=== PATIENT | female | born 1950 | race Caucasian/White ===

== ENCOUNTER 2017-03-12 06:30 | Day surgery (SDC) | payer OTHER ==
[2017-03-11 13:44] VITALS: BMI 28.8
[2017-03-12] MEDS ORDERED: PROPOFOL 20 ML ONE ×4 (07:31→07:50)
[2017-03-12] MEDS ORDERED: MIDAZOLAM HCL 2 MG/2 ML SINGLE DOSE VIAL ONE ×2 (07:41)
[2017-03-12] MEDS ORDERED: ROPIVACAINE HCL 0.5% 30ML VIAL ONE (07:42)
[2017-03-12] MEDS ORDERED: SCOPOLAMINE HYDROBROMIDE 1 PATCH PATCH.TD72 ONE (07:49)
[2017-03-12] MEDS ORDERED: ceFAZolin SODIUM 1 GM VIAL IVPB ONE (08:40)
[2017-03-12] MEDS ORDERED: ePHEDrine SULFATE 50 MG/1 ML AMPULE ONE (08:50)
[2017-03-12] MEDS ORDERED: ceFAZolin SODIUM 1 GM VIAL ONE (09:01)
[2017-03-12] MEDS ORDERED: DEXAMETHASONE SOD PHOSPHATE 4 MG/1 ML VIAL ONE ×2 (09:01)
--- NOTE | 2017-03-12 09:27 | OP ---
Operative Note - Note: Operative Date: 03/12/17 Pre-Operative Diagnosis: left shoulder subacromial impingement, adhesive capsulitis Operation: left shoulder arthroscopy, subacromial decompression, manipulation under anesthesia Post-Operative Diagnosis: Same as Pre-op Surgeon: Mesfin Galarza Cloak Room Attendant: Shiv Smith Anesthesiologist/FLOOR HAND: Yesika Santana Anesthesia: General, Local Specimens Removed: shavings Estimated Blood Loss (mls): 25 Drains, Volume Out (mls): 0 Blood Volume Replaced (mls): 0 Fluid Volume Replaced (mls): 700 Operative Report Dictated: Yes
--- NOTE | 2017-03-12 09:31 | HP ---
Satellite H - Chief Complaint Chief Complaint: left shoulder pain - Past Medical History Allergies/Adverse Reactions: Allergies Allergy/AdvReac Type Severity Reaction Status Date / Time ciprofloxacin [From Cipro] Allergy "VIOLENTLY Verified 03/11/17 13:51 ILL" ciprofloxacin HCl Allergy "VIOLENTLY Verified 03/11/17 13:51 [From Cipro] ILL" Penicillins Allergy "VIOLENTLY Verified 03/11/17 13:51 ILL" - Current Medications Current Medications: Home Medications Medication Instructions Recorded Cholecalciferol (Vitamin D3) 2,000 unit PO DAILY 09/17/13 [Vitamin D3] Krill Oil/[place]-3/Dha/Epa [[place]-3 1 each PO DAILY 09/17/13 Krill Oil Softgel] Multivitamin [Multivitamins] 1 each PO DAILY 09/17/13 Cetirizine HCl [Zyrtec -] 10 mg PO DAILY 03/11/17 Estradiol/Norethindrone Acet 1 each TD WEEKLY 03/11/17 [Combipatch 0.05-0.14 mg Ptch] L.acidoph,Paracasei, B.lactis 1 each PO DAILY 03/11/17 [Probiotic] Hydrocodone/Acetaminophen [Barton 1 - 2 each PO Q6H #40 tablet MDD 8 03/12/17 5-325 Tablet] Satellite Physical Exam - Physical Examination Vital Signs: Vital Signs Period Temp Pulse Resp BP Sys/Barraza Pulse Ox Last 24 Hr 98.6 F 76 18 131/78 98 General Appearance: Well Nourished, Well Developed, Alert & Oriented x3 ENT: Clear Lung: Normal air movement Heart: Regular rate & rhythm Extremities: Other (left shoulder- + ttp, decr rom, + neer, + coronado, nvi) Neurological: Intact, Alert, Oriented Satellite Impression/Plan - Impression/Plan Impression: left shoulder impingement Operative Procedure: left shoulder arthroscopy with GHASSAN RUANO Date to be Performed: 03/12/17
--- NOTE | 2017-03-12 10:37 | OP ---
DATE OF OPERATION: 03/12/2017 PREOPERATIVE DIAGNOSES: Left shoulder subacromial impingement and adhesive capsulitis. POSTOPERATIVE DIAGNOSES: Left shoulder subacromial impingement and adhesive capsulitis. PROCEDURE: Left shoulder arthroscopy, subacromial decompression, and manipulation under anesthesia. SURGEON: Grace Cristina MD CONSTRUCTION DRILLER: NIKO Nicholson OFFSET ASSISTANT PRESS OPERATOR: Yesika Santana CRNA ANESTHESIA: Left interscalene block, LMA anesthesia. BLOOD LOSS: Minimal. BLOOD GIVEN: None. FLUID REPLACEMENT: 500 mL. DRAINS: None. COMPLICATIONS: None. SPECIMEN: Arthroscopic shavings. This patient is a 66-year-old female with a preoperative diagnosis of a severe recurrent left shoulder subacromial impingement and mild to moderate adhesive capsulitis. After understanding the potential risks, complications, alternatives, and benefits of surgery versus nonsurgical treatment, the patient elected to undergo this procedure. The patient was brought to the operating room. Peripheral IV placed. IV sedation given. A left interscalene block was performed. LMA anesthesia was induced. She was placed into the headline writer in the beach chair position with ample padding throughout. Her left upper extremity was prepped and draped in sterile fashion. The bony landmarks marked out with a bone-marking pen. Posterior portal established. Arthroscope was introduced into the joint and a diagnostic glenohumeral arthroscopy was performed. In the glenohumeral joint, the patient was seen to have a frayed labrum in particular where the biceps anchored into the labrum, but there was no glenohumeral arthritis and the undersurface of the rotator cuff looked pristine. An anterior portal was established and a probe was introduced. Although the labrum itself was fine, the patient had a large middle glenohumeral ligament. The frayed portion of the biceps anchor was debrided, but the labrum was extensively probed and there was no labral tear. Excess saline was removed from the joint. Our attention turned to the subacromial space. Lateral portal was established with a spinal needle under direct visualization. A Green cannula was introduced and patient had a lot of inflammatory bursitis. A bursectomy was performed with the straight shaver and the ArthroCare wand, revealing a very large subacromial spur. The spur was taken down with a 5.5-mm oval bur and all debris removed with the shaver. The top surface of the rotator cuff was directly visualized after extensive debridement and the bursectomy and was seen to be completely intact with no tear. The area was copiously irrigated and washed out, all debris removed. Excess saline removed. The arthroscopy portals were closed with 3-0 nylon sutures. The area was then washed and dried and covered with 3 Aquacel dressings and a sling was applied. The patient had no complications during the case. Total operative time was about 30 minutes. She was extubated and brought to the ambulatory recovery room in stable condition. GRACE CRISTINA M.D. [id number]
[2017-03-12 11:07] VITALS: TEMP 97.6
[2017-03-12] MEDS ORDERED: oxyCODONE HCL 5 MG TABLET PO PRN (11:09)
[2017-03-12] MEDS ORDERED: PROMETHAZINE HCL 25 MG/1 ML VIAL IVPUSH PRN (11:09)
[2017-03-12] MEDS ORDERED: ONDANSETRON 4 MG/2 ML VIAL IVPUSH PRN (11:09)
[2017-03-12] MEDS ORDERED: LACTATED RINGERS SOLUTION 1,000 ML IV SCH (11:15)
[2017-03-12 12:55] VITALS: BP 127/70; PULSE 70
--- NOTE | 2017-03-13 12:46 | PATH ---
Surgical Pathology Report Patient Name: ZA CONTRERAS [facility]. Rec. #: [id number] /Age/Gender: 1950 (Age: 66) / F Account: [id number] Location: [facility] Taken: 03/12/2017 Received: 03/12/2017 Reported: 03/13/2017 Physicians: Mikey Gonzalez M.D. Specimen(s) Received SHAVINGS LEFT SHOULDER Clinical History Impingement syndrome Final Diagnosis SOFT TISSUE, LEFT SHOULDER, ARTHROSCOPIC SHAVINGS: SYNOVIUM AND FIBROCARTILAGE WITH MYXOHYALINE DEGENERATION. FRAGMENTS OF UNREMARKABLE BONE AND SKELETAL MUSCLE. Electronically Signed Dm Zarate M.D. Gross Description Received in formalin, labeled "left shoulder shavings" is a 4.0 x 3.6 x 0.3 cm aggregate of painting-yellow soft tissue fragments. A telemarketing representative portion is submitted in one cassette. /03/12/201703/12/2017
== END 2017-03-12 12:54 | disposition home or self-care (01) ==
LOC: JASU-SURG 06:30
PROVIDERS: ATTEND Orthopaedic Surgery
PROC: 0RBK4ZZ Excision of Left Shoulder Joint, Percutaneous Endoscopic Approach (ICD-10-PCS; principal; 2017-03-12 08:00)
DX: M75.42 Impingement syndrome of left shoulder (principal); M75.02 Adhesive capsulitis of left shoulder
CPT/HCPCS: 88304-TC; 94760

== ENCOUNTER 2020-05-26 04:57 | Day surgery (SDC) | payer OTHER ==
[2020-05-25 12:41] VITALS: BMI 29.2
[2020-05-26] MEDS ORDERED: DEXAMETHASONE SOD PHOSPHATE/PF 10 MG/ML SDV ONE ×2 (07:39→08:10)
[2020-05-26] MEDS ORDERED: LIDOCAINE HCL/PF 1% SDV 5ML VIAL ONE (07:40)
--- NOTE | 2020-05-26 07:48 | HP ---
Admitting History and Physical - Admission Chief Complaint: Low back and b/L Buttock Pain History of Present Illness: Pt presents with low back pain and b/l Buttock pain with history of lumbar spinal fusion - Smoking History Smoking history: Never smoked Have you smoked in the past 12 months: No - Alcohol/Substance Use Hx Alcohol Use: Yes (SOCIALLY) Home Medications - Allergies Allergies/Adverse Reactions: Allergies Allergy/AdvReac Type Severity Reaction Status Date / Time ciprofloxacin [From Cipro] Allergy "VIOLENTLY Verified 05/26/20 07:21 ILL" ciprofloxacin HCl Allergy "VIOLENTLY Verified 05/26/20 07:21 [From Cipro] ILL" Penicillins Allergy "VIOLENTLY Verified 05/26/20 07:21 ILL" - Home Medications Home Medications: Ambulatory Orders Estradiol/Norethindrone Acet [Combipatch 0.05-0.14 mg Ptch] 1 each TD WEEKLY 03/11/17 Gabapentin 800 mg PO TID 05/25/20 Simvastatin 40 mg PO HS 05/25/20 Review of Systems - Review of Systems Constitutional: reports: No Symptoms Eyes: reports: No Symptoms HENT: reports: Gingival Bleeding Neck: reports: No Symptoms Cardiovascular: reports: No Symptoms Respiratory: reports: No Symptoms Gastrointestinal: reports: No Symptoms Genitourinary: reports: No Symptoms Breasts: reports: No Symptoms Reported Musculoskeletal: reports: Back Pain Neurological: reports: Other (Radiating parasthesias) Endocrine: reports: No Symptoms Hematology/Lymphatic: reports: No Symptoms Psychiatric: reports: No Symptoms Physical Examination Vital Signs: Vital Signs Temperature 98.0 F 05/26/20 07:20 Pulse Rate 71 05/26/20 07:20 Respiratory Rate 20 05/26/20 07:20 Blood Pressure 132/85 05/26/20 07:20 O2 Sat by Pulse Oximetry (%) 98 05/26/20 07:20 Imaging - Results Cat Scan: Image Reviewed Assessment/Plan The patients pain is likely secondary to lumbar radiculopathy in the setting of lumbar spinal fusion. 1. I will perform B/l L5 TFESI.
[2020-05-26] MEDS ORDERED: LIDOCAINE HCL 1% PRESERVATIVE FREE - 30ML VIAL IJ ONE ×2 (08:05)
[2020-05-26] MEDS ORDERED: DEXAMETHASONE SOD PHOSPHATE 10 MG/1 ML VIAL IVPUSH ONE (08:06)
[2020-05-26] MEDS ORDERED: IOHEXOL 180 MG/1 ML ML IJ ONE ×2 (08:07)
[2020-05-26 09:01] VITALS: BP 126/72; PULSE 61; TEMP 97.5
--- NOTE | 2020-05-30 22:05 | PROC ---
Procedure Note Procedure: Preprocedure Diagnosis: Lumbar Radiculopathy Post Procedure Diagnosis: same Anesthesia: MAC Procedure Performed: Right and Left L5 transforaminal Epidural Steroid Injections After the risks and benefits were explained, informed consent was obtained. The patient was then taken to the procedure room and positioned prone on the procedure table. Time out was performed. The region overlying the Right and Left L5 neural foramens were identified using fluoroscopy. The skin was prepped and draped in the usual sterile fashion. The skin and soft tissues were anesthetized using 1% lidocaine. The neural foramens were identified with the fluoroscopic beam directed in a right oblique direction. 2 22 gauge 3.5 inch spinal needles were then introduced into the appropriate neural foramens using intermittent fluoroscopic guidance using AP, oblique and lateral views as indicated. Needle placement was then confirmed with the injection of Omnipaque 240. Epidural flow was noted and the nerve root was outlined. No vascular uptake was noted. Next, a mixture 1.5 cc of dexamethasone and Normal saline followed by 0.5 cc of 1% lidocaine was then injected around the Right & Left L5 spinal nerves. The patient tolerated the procedure well and there were no complications. The patient was taken to the post procedure recovery area in good condition. Vital signs remained stable before, during, and after the procedure. The patient was given oral and written follow-up instructions. The patient was given a follow up appointment with me in the near future. Rommel Butts DO
== END 2020-05-26 11:00 | disposition home or self-care (01) ==
LOC: JASU-SURG 04:57
PROVIDERS: ATTEND Pain Medicine Pain Medicine
PROC: 3E0R33Z Introduction of Anti-inflammatory into Spinal Canal, Percutaneous Approach (ICD-10-PCS; 2020-05-26)
PROC: 3E0R3BZ Introduction of Anesthetic Agent into Spinal Canal, Percutaneous Approach (ICD-10-PCS; principal; 2020-05-26 08:00)
DX: M54.16 Radiculopathy, lumbar region (principal)
CPT/HCPCS: 76000-TC-FY; J1100

== ENCOUNTER 2020-07-07 05:09 | Day surgery (SDC) | payer OTHER ==
--- OUTSIDE RECORDS SUMMARY | 2020-07-06 08:24 | XMS ---
:1950 Author Organization [facility] Care Team Providers Name Role Phone Chumaceiro, Darrell Unavailable Unavailable Chumaceiro, Darrell Unavailable Unavailable Chumaceiro, Darrell Unavailable Unavailable Chumaceiro, Darrell Unavailable Unavailable Chumaceiro, Darrell Unavailable Unavailable Chumaceiro, Darrell Unavailable Unavailable Chumaceiro, Darrell Unavailable Unavailable Chumaceiro, Darrell Unavailable Unavailable Erosa, Rommel Unavailable Erosa, Rommel Unavailable Re-disclosure Warning The records that you are about to access may contain information from federally- assisted alcohol or drug abuse programs. If such information is present, then the following federally mandated warning applies: This information has been disclosed to you from records protected by federal confidentiality rules (42 CFR part 2). The federal rules prohibit you from making any further disclosure of this information unless further disclosure is expressly permitted by the written consent of the person to whom it pertains or as otherwise permitted by 42 CFR part 2. A general authorization for the release of medical or other information is NOT sufficient for this purpose. The Federal rules restrict any use of the information to criminally investigate or prosecute any alcohol or drug abuse patient.The records that you are about to access may contain highly sensitive health information, the redisclosure of which is protected by Article 27-F of the [facility] Public Health law. If you continue you may haveaccess to information: Regarding HIV / AIDS; Provided by facilities licensed or operated by the [facility] Office of Mental Health; or Provided by the [facility] Office for People With Developmental Disabilities. If such information is present, then the following [facility] mandated warning applies: This information has been disclosed to you from confidential records which are protected by state law. State law prohibits you from making any further disclosure of this information without the specific written consent of the person to whom it pertains, or as otherwise permitted by law. Any unauthorized further disclosure in violation of state law may result in a fine or fdc sentence or both. A general authorization for the release of medical or other information is NOT sufficient authorization for further disclosure. Allergies and Adverse Reactions Type Description Substance Reaction Status Data Source(s ) Drug allergy penicillin Penicillin G Active [facility] ([facility], ) Encounters Encounter Providers Location Date Indications Data Source(s ) Attender: Rommel 06/14/2020 [facility] [place] 12:00:00 AM EDT [facility], PC) Office Attender: Rommel Butts 06/14/2020 12:00:00 AM EDT [facility] ([facility], ) Office Attender: Rommel Butts 04/27/2020 12:00:00 AM EDT [facility] ([facility], ) Office Attender: Rommel Butts 04/27/2020 12:00:00 AM EDT [facility] ([facility], ) Office Attender: Darrell 04/17/2020 12:00:00 AM EDT [facility] Office Attender: Darrell 04/17/2020 12:00:00 AM EDT [facility], ) Office Attender: Darrell 04/17/2020 12:00:00 AM EDT [facility] ([facility], ) Office Immunizations Vaccine Date Status Description Data Source(s) New in 2011. IIV4 07/17/2018 12:00:00 completed ME [facility] ([facility]) New in 2011. IIV4 07/17/2018 12:00:00 completed ME [facility] ([facility]) New in 2011. IIV4 07/17/2018 12:00:00 completed ME D[facility] ([facility], ) Tdap 11/24/2017 12:00:00 completed [facility] ( [facility]) Tdap 11/24/2017 12:00:00 completed [facility] ( [facility]) Tdap 11/24/2017 12:00:00 completed [facility] ( [facility]) Medications Medication Brand Start Product Dose Route Administrative Pharmacy [facility] Indications Reaction Description Data Name Date Form Instructions Instructions Source(s) pregabalin LYRICA 10/05/ CAPSULE 30 complet LYRI CA [facility] (St 100 MG Oral :59196 2017 ed [facility] Capsule 8 12:00: Medical, [Lyrica] 00 AM PC) LYRICA:6070 EDT 18 pregabalin LYRICA 10/05/ CAPSULE 30 complet LYRI CA [facility] (St 100 MG Oral :12797 2017 ed [facility] Capsule 8 12:00: Medical, [Lyrica] 00 AM PC) LYRICA:6070 EDT 18 pregabalin LYRICA 10/05/ CAPSULE 30 complet LYRI CA [facility] (St 100 MG Oral :12328 2017 ed [facility] Capsule 8 12:00: Medical, [Lyrica] 00 AM PC) LYRICA:6070 EDT 18 Amoxicillin AUGMEN 12/04/ TABLET 20 complet AUGM ENTIN MED[facility] (St 875 MG / TIN:56 2017 ed [facility] Clavulanate 2508 12:00: Medica l, 125 MG Oral 00 AM PC) Tablet EST AUGMENTIN:5 26613 Amoxicillin AUGMEN 12/04/ TABLET 20 complet AUGM ENTIN MED[facility] (St 875 MG / TIN:56 2017 ed [facility] Clavulanate 2508 12:00: Medica l, 125 MG Oral 00 AM PC) Tablet EST AUGMENTIN:5 55470 Amoxicillin AUGMEN 12/04/ TABLET 20 complet AUGM ENTIN [facility] (St 875 MG / TIN:56 2017 ed [facility] Clavulanate 2508 12:00: Medica l, 125 MG Oral 00 AM PC) Tablet EST AUGMENTIN:5 39531 Naproxen NAPROX 02/26/ DELAYED 30 complet NAPROX EN [facility] (St 500 MG EN:311 2017 RELEASE ed [facility] Delayed 915 12:00: TABLET Medical, Release 00 AM PC) Oral Tablet EDT NAPROXEN:1914 COMBIPATCH: 02/26/ complet COMBIPAT CH [facility] (St 2016 ed [facility] 12:00: Medical, 00 AM PC) EDT COMBIPATCH: 02/26/ complet COMBIPAT CH [facility] (St 2016 ed [facility] 12:00: Medical, 00 AM PC) EDT COMBIPATCH: 02/26/ complet COMBIPAT CH [facility] (St 2016 ed [facility] 12:00: Medical, 00 AM PC) EDT Naproxen NAPROX 02/26/ DELAYED 30 complet NAPROX EN [facility] (St 500 MG EN:311 2016 RELEASE ed [facility] Delayed 915 12:00: TABLET Medical, Release 00 AM PC) Oral Tablet EDT NAPROXEN:1914 Naproxen NAPROX 02/26/ DELAYED 30 complet NAPROX EN [facility] (St 500 MG EN:311 2016 RELEASE ed [facility] Delayed 915 12:00: TABLET Medical, Release 00 AM PC) Oral Tablet EDT NAPROXEN:1914 120 ACTUAT FLONAS 08/09/ SPRAY 1 complet FLONAS E [facility] (St Fluticasone E:8963 2015 ed [facility] propionate 21 12:00: Medical , 0.05 00 AM PC) MG/ACTUAT EDT Nasal Inhaler FLONASE:896 321 120 ACTUAT FLONAS 08/09/ SPRAY 1 complet FLONAS E [facility] (St Fluticasone E:8963 2015 ed [facility] propionate 21 12:00: Medical , 0.05 00 AM PC) MG/ACTUAT EDT Nasal Inhaler FLONASE:896 321 120 ACTUAT FLONAS 08/09/ SPRAY 1 complet FLONAS E [facility] (St Fluticasone E:8963 2015 ed [facility] propionate 21 12:00: Medical , 0.05 00 AM PC) MG/ACTUAT EDT Nasal Inhaler FLONASE:896 321 Insurance Providers Payer name Policy type Policy ID Covered Covered republican's Policy P ami / Coverage republican ID relationship to Angel Inf ormation type angel [employer] [id number] HEALTHCARE (MEDICARE) EMPIRE [id number] [facility] [id number] AARP MEDICARE [id number] COMPLETE [employer] [id number] HEALTHCARE (MEDICARE) [employer] [id number] HEALTHCARE (MEDICARE) Problems, Conditions, and Diagnoses Code Display Name Description Problem Effective Data Type Dates Source(s) M47.896 Other spondylosis, OTHER SPONDYLOSIS, Problem 0 MED[facility] (St lumbar region LUMBAR REGION 12:00:00 AM [facility], ) M96.1 Postlaminectomy POSTLAMINECTOMY Problem 04/27/2020 MEDG EN (St syndrome, not SYNDROME, NOT 12:00:00 AM [facility] elsewhere classified ELSEWHERE CLASSIFIED EDT Medical, ) M54.16 Radiculopathy, RADICULOPATHY, Problem 04/27/2020 MED[facility] (St lumbar region LUMBAR REGION 12:00:00 AM [facility], ) M96.1 Postlaminectomy POSTLAMINECTOMY Problem 04/27/2020 MEDG EN (St syndrome, not SYNDROME, NOT 12:00:00 AM [facility] elsewhere classified ELSEWHERE CLASSIFIED EDT Medical, ) M54.16 Radiculopathy, RADICULOPATHY, Problem 04/27/2020 MED[facility] (St lumbar region LUMBAR REGION 12:00:00 AM [facility], ) E78.5 Hyperlipidemia, HYPERLIPIDEMIA, Problem 04/17/2020 MEDG EN (St unspecified UNSPECIFIED 12:00:00 AM [facility], ) Z20.828 Contact with and CONTACT WITH AND Problem 04/17/2020 ME DGEN (St (suspected) exposure (SUSPECTED) EXPOSURE 12:00 :00 AM [facility] to other viral TO OTHER VIRAL EDT Medica , ) communicable COMMUNICABLE diseases DISEASES E78.5 Hyperlipidemia, HYPERLIPIDEMIA, Problem 04/17/2020 MEDG EN (St unspecified UNSPECIFIED 12:00:00 AM [facility], ) Z20.828 Contact with and CONTACT WITH AND Problem 04/17/2020 ME DGEN (St (suspected) exposure (SUSPECTED) EXPOSURE 12:00 :00 AM [facility] to other viral TO OTHER VIRAL EDT Medica , ) communicable COMMUNICABLE diseases DISEASES E78.5 Hyperlipidemia, HYPERLIPIDEMIA, Problem 04/17/2020 MEDG EN (St unspecified UNSPECIFIED 12:00:00 AM [facility], ) Z20.828 Contact with and CONTACT WITH AND Problem 04/17/2020 ME DGEN (St (suspected) exposure (SUSPECTED) EXPOSURE 12:00 :00 AM [facility] to other viral TO OTHER VIRAL EDT Medica , ) communicable COMMUNICABLE diseases DISEASES R07.9 Chest pain, CHEST PAIN, Problem 09/30/2019 MEDGEN (St unspecified UNSPECIFIED 12:00:00 AM [facility], ) R07.9 Chest pain, CHEST PAIN, Problem 09/30/2019 MEDGEN (St unspecified UNSPECIFIED 12:00:00 AM [facility], ) R07.9 Chest pain, CHEST PAIN, Problem 09/30/2019 MEDGEN (St unspecified UNSPECIFIED 12:00:00 AM [facility], ) M54.5 Low back pain LOW BACK PAIN Problem 03/17/2019 MED[facility] ( St 12:00:00 AM [facility], ) R42 Dizziness and DIZZINESS AND Problem 03/17/2019 MEDGEN ( St giddiness GIDDINESS 12:00:00 AM [facility], ) M54.5 Low back pain LOW BACK PAIN Problem 03/17/2019 MED[facility] ( St 12:00:00 AM [facility], ) R42 Dizziness and DIZZINESS AND Problem 03/17/2019 MEDGEN ( St giddiness GIDDINESS 12:00:00 AM [facility], ) M54.5 Low back pain LOW BACK PAIN Problem 03/17/2019 MED[facility] ( St 12:00:00 AM [facility], ) R42 Dizziness and DIZZINESS AND Problem 03/17/2019 MEDGEN ( St giddiness GIDDINESS 12:00:00 AM [facility], ) G50.0 Trigeminal neuralgia TRIGEMINAL NEURALGIA Problem 07/17 MED[facility] (St 12:00:00 AM [facility], ) G50.0 Trigeminal neuralgia TRIGEMINAL NEURALGIA Problem 07/17 MED[facility] (St 12:00:00 AM [facility], ) G50.0 Trigeminal neuralgia TRIGEMINAL NEURALGIA Problem 07/17 MED[facility] (St 12:00:00 AM [facility] EDT Medical, ) Z00.00 Encounter for ENCOUNTER FOR Problem 03/02/2018 MEDGEN ( St general adult GENERAL ADULT 12:00:00 AM [facility] medical examination MEDICAL EXAMINATION EDT Medical, ) without abnormal WITHOUT ABNORMAL findings FINDINGS Z00.00 Encounter for ENCOUNTER FOR Problem 03/02/2018 MEDGEN ( St general adult GENERAL ADULT 12:00:00 AM [facility] examination MEDICAL EXAMINATION EDT Medical, ) without abnormal WITHOUT ABNORMAL findings FINDINGS Z00.00 Encounter for ENCOUNTER FOR Problem 03/02/2018 MEDGEN ( St general adult GENERAL ADULT 12:00:00 AM [facility] medical examination MEDICAL EXAMINATION EDT Medical, ) without abnormal WITHOUT ABNORMAL findings FINDINGS J01.00 Acute maxillary ACUTE MAXILLARY Problem 12/04/2017 MEDG EN (St sinusitis, SINUSITIS, 12:00:00 AM [facility] unspecified UNSPECIFIED EST Medical, ) J01.00 Acute maxillary ACUTE MAXILLARY Problem 12/04/2017 MEDG EN (St sinusitis, SINUSITIS, 12:00:00 AM [facility] unspecified UNSPECIFIED EST Medical, ) J01.00 Acute maxillary ACUTE MAXILLARY Problem 12/04/2017 MEDG EN (St sinusitis, SINUSITIS, 12:00:00 AM [facility] unspecified UNSPECIFIED EST Medical, ) Z23 Encounter for ENCOUNTER FOR Problem 11/24/2017 MEDGEN ( St immunization IMMUNIZATION 12:00:00 AM [facility] EST Medical, ) Z23 Encounter for ENCOUNTER FOR Problem 11/24/2017 MEDGEN ( St immunization IMMUNIZATION 12:00:00 AM [facility] EST Medical, ) Z23 Encounter for ENCOUNTER FOR Problem 11/24/2017 MEDGEN ( St immunization IMMUNIZATION 12:00:00 AM [facility] EST Medical, ) M25.512 Pain in left PAIN IN LEFT Problem 02/26/2017 MEDGEN (St shoulder SHOULDER 12:00:00 AM [facility] EDT Medical, ) Z01.818 Encounter for other ENCOUNTER FOR OTHER Problem 017 MEDGEN (St preprocedural PREPROCEDURAL 12:00:00 AM [facility] examination EXAMINATION EDT Medical, ) M25.512 Pain in left PAIN IN LEFT Problem 02/26/2017 MEDGEN (St shoulder SHOULDER 12:00:00 AM [facility] EDT Medical, ) Z01.818 Encounter for other ENCOUNTER FOR OTHER Problem 017 MED[facility] (St preprocedural PREPROCEDURAL 12:00:00 AM [facility] examination EXAMINATION EDT [facility], ) M25.512 Pain in left PAIN IN LEFT Problem 02/26/2017 MEDGEN (St shoulder SHOULDER 12:00:00 AM [facility] T [facility], ) Z01.818 Encounter for other ENCOUNTER FOR OTHER Problem 017 MED[facility] (St preprocedural PREPROCEDURAL 12:00:00 AM [facility] examination EXAMINATION T [facility], ) Surgeries/Procedures Procedure Description Date Indications Data Source(s) OFFICE OUTPATIENT VISIT 15 06/14/2020 Bunny MATTHEW ([facility] MINUTES 12:00:00 AM [facility], ) Documentation of current 04/27/2020 MED GEN ([facility] medications (procedure) 12:00:00 AM T [facility], ) Documentation of current 04/27/2020 MED GEN ([facility] medications (procedure) 12:00:00 AM T [facility], ) Documentation of current 04/27/2020 MED GEN ([facility] medications (procedure) 12:00:00 AM T [facility], ) OFFICE OUTPATIENT VISIT 15 04/27/2020 Bunny MATTHEW ([facility] MINUTES 12:00:00 AM [facility], ) Documentation of current 04/27/2020 MED GEN ([facility] medications (procedure) 12:00:00 AM T [facility], ) OFFICE OUTPATIENT VISIT 15 04/27/2020 Bunny MATTHEW ([facility] MINUTES 12:00:00 AM [facility], ) Documentation of current 04/17/2020 MED GEN ([facility] medications (procedure) 12:00:00 AM EDT [facility], ) Documentation of current 04/17/2020 MED GEN [facility]procedure) [facility]ation [facility] current 04/17/2020 MED GEN ([facility] medications (procedure) 12:00:00 AM T [facility], ) OFFICE OUTPATIENT VISIT 15 04/17/2020 Bunny MATTHEW ([facility] MINUTES 12:00:00 AM [facility], ) COLLECTION VENOUS BLOOD 04/17/2020 MEDG EN ([facility] VENIPUNCTURE 12:00:00 AM EDT Medical, ) Documentation of current 04/17/2020 MED GEN ([facility] medications (procedure) 12:00:00 AM EDT edical, ) Documentation of current 04/17/2020 MED [facility] ([facility]) [facility] Documentation of current 04/17/2020 MED GEN ([facility] (procedure) [facility]:00:[facility] OFFICE OUTPATIENT VISIT 15 04/17/2020 M EDGEN ([facility] MINUTES 12:00:00 AM EDT Medical, ) COLLECTION VENOUS BLOOD 04/17/2020 MEDG EN ([facility] VENIPUNCTURE 12:00:00 AM EDT Medical, ) Documentation of current 04/17/2020 MED GEN ([facility] (procedure) [facility]:00[facility] OFFICE OUTPATIENT VISIT 15 04/17/2020 Bunny EDGEN ([facility] MINUTES 12:00:00 AM EDT Medical, ) COLLECTION VENOUS BLOOD 04/17/2020 MEDG EN ([facility] VENIPUNCTURE 12:00:00 AM [facility], ) Documentation of current 03/22/2020 MED GEN ([facility] medications (procedure) 12:00:00 AM EDT edical, ) PHYSICIAN TELEPHONE 03/22/2020 [facility] ( [facility] EVALUATION 5-10 MIN 12:00:00 AM EDT Medic al, PC) Documentation of current 03/22/2020 MED GEN ([facility] medications (procedure) 12:00:00 AM EDT edical, ) PHYSICIAN TELEPHONE 03/22/2020 [facility] ( [facility] EVALUATION 5-10 MIN 12:00:00 AM EDT Medic al, PC) Documentation of current 03/22/2020 MED GEN ([facility] medications (procedure) 12:00:00 AM EDT edical, ) PHYSICIAN TELEPHONE 03/22/2020 [facility] ( [facility] EVALUATION 5-10 MIN 12:00:00 AM EDT Medic al, ) Documentation of current 09/30/2019 MED GEN ([facility] medications (procedure) 12:00:[address] [facility] charan, ) OFFICE OUTPATIENT VISIT 25 09/30/2019 M EDGEN ([facility] MINUTES 12:00:00 AM EST Medical, ) ECG ROUTINE ECG W/LEAST 12 09/30/2019 M EDGEN ([facility] LDS W/I&R 12:00:00 AM EST Medical, ) COLLECTION VENOUS BLOOD 09/30/2019 MEDG EN ([facility] VENIPUNCTURE 12:00:00 AM EST Medical, ) Documentation of current 09/30/2019 MED GEN ([facility]procedure) [facility]:00[facility] OFFICE OUTPATIENT VISIT 25 09/30/2019 Bunny EDGEN ([facility] MINUTES 12:00:00 AM EST Medical, ) ECG ROUTINE ECG W/LEAST 12 09/30/2019 Bunny EDGEN ([facility] LDS W/I&R 12:00:00 AM EST Medical, ) COLLECTION VENOUS BLOOD 09/30/2019 MEDG EN ([facility] VENIPUNCTURE 12:00:00 AM [facility], ) Documentation of current 09/30/2019 MED GEN ([facility] medications (procedure) [facility]:00:[facility] OFFICE OUTPATIENT VISIT 25 09/30/2019 Bunny EDGEN ([facility] MINUTES 12:00:00 AM [facility] Medical, ) ECG ROUTINE ECG W/LEAST 12 09/30/2019 Bunny EDGEN ([facility] LDS W/I&R 12:00:00 AM EST Medical, ) COLLECTION VENOUS BLOOD 09/30/2019 MEDG EN ([facility] VENIPUNCTURE 12:00:00 AM EST [facility], ) Documentation of current 05/07/2019 MED GEN ([facility] medications (procedure) 12:00:00 AM EDT edical, ) Documentation of current 05/07/2019 MED GEN ([facility] medications (procedure) 12:00:00 AM EDT edical, PC) Documentation of current 05/07/2019 MED GEN ([facility] medications (procedure) 12:00:00 AM EDT edical, ) OFFICE OUTPATIENT VISIT 15 05/07/2019 M EDGEN [facility] Documentation of current 05/07/2019 MED GEN ([facility] (procedure) [facility]:00[facility] Documentation of current 05/07/2019 MED GEN ([facility] medications (procedure) [facility]:00:[facility] Documentation of current 05/07/2019 MED GEN ([facility] medications (procedure) 12:00:00 AM EDT [facility], ) OFFICE OUTPATIENT VISIT 15 05/07/2019 Bunny MATTHEW ([facility] MINUTES 12:00:00 AM [facility], ) Documentation of current 05/07/2019 MED GEN ([facility] medications (procedure) 12:00:00 AM EDT [facility], ) Documentation of current 05/07/2019 MED GEN ([facility] medications (procedure) 12:00:00 AM EDT [facility], ) Documentation of current 05/07/2019 MED GEN ([facility] medications (procedure) 12:00:00 AM EDT [facility], ) OFFICE OUTPATIENT VISIT 15 05/07/2019 Bunny MATTHEW ([facility] MINUTES 12:00:00 AM [facility], ) Documentation of current 03/17/2019 MED GEN ([facility] medications (procedure) 12:00:00 AM EDT [facility], ) Documentation of current 03/17/2019 MED GEN ([facility] medications (procedure) 12:00:00 AM EDT [facility], ) OFFICE OUTPATIENT VISIT 25 03/17/2019 Bunny MATTHEW ([facility] MINUTES 12:00:00 AM [facility], ) ECG ROUTINE ECG W/LEAST 12 03/17/2019 Bunny MATTHEW ([facility] LDS W/I&R 12:00:00 AM [facility], ) COLLECTION VENOUS BLOOD 03/17/2019 MEDG EN ([facility] VENIPUNCTURE 12:00:00 AM [facility], ) Documentation of current 03/17/2019 MED GEN ([facility] medications (procedure) 12:00:00 AM EDT [facility], ) Documentation of current 03/17/2019 MED GEN ([facility] medications (procedure) 12:00:00 AM EDT [facility], ) OFFICE OUTPATIENT VISIT 25 03/17/2019 Bunny MATTHEW ([facility] MINUTES 12:00:00 AM [facility]) ECG ROUTINE ECG W/LEAST 12 03/17/2019 M EDGEN ([facility] LDS W/I&R 12:00:00 AM [facility]) COLLECTION VENOUS BLOOD 03/17/2019 MEDG EN ([facility] VENIPUNCTURE 12:00:00 AM [facility]) Documentation of current 03/17/2019 MED GEN ([facility] medications (procedure) 12:00:00 AM [facility]) Documentation of current 03/17/2019 MED GEN ([facility] medications (procedure) 12:00:00 AM [facility]) OFFICE OUTPATIENT VISIT 25 03/17/2019 Bunny ALFREDN ([facility] MINUTES 12:00:00 AM [facility]) ECG ROUTINE ECG W/LEAST 12 03/17/2019 Bunny SIMONN ([facility] LDS W/I&R 12:00:00 AM [facility]) COLLECTION VENOUS BLOOD 03/17/2019 MEDG EN ([facility] VENIPUNCTURE 12:00:00 AM [facility]) Documentation of current 07/17/2018 MED GEN ([facility] medications (procedure) 12:00:00 AM [facility]) Documentation of current 07/17/2018 MED GEN ([facility] medications (procedure) 12:00:00 AM [facility]) Documentation of current 07/17/2018 MED GEN ([facility] medications (procedure) 12:00:00 AM [facility]) Influenza virus vaccine, 07/17/2018 MED GEN ([facility] split virus, when 12:00:00 AM [facility]) administered to individuals 3 years of age and older, for intramuscular use (flulaval) Administration of 07/17/2018 [facility] ([facility] influenza virus vaccine 12:00:00 AM [facility]) OFFICE OUTPATIENT VISIT 25 07/17/2018 Bunny EDGEN ([facility] MINUTES 12:00:00 AM [facility]) COLLECTION VENOUS BLOOD 07/17/2018 MEDG EN ([facility] VENIPUNCTURE 12:00:00 AM [facility]) Documentation of current 07/17/2018 MED GEN ([facility]procedure) [facility] Documentation of current 07/17/2018 MED GEN ([facility] medications (procedure) 12:00:[facility] Documentation of current 07/17/2018 MED GEN ([facility] medications (procedure) 12:00:00 AM T [facility], ) Influenza virus vaccine, 07/17/2018 MED GEN ([facility] split virus, when 12:00:00 AM [facility] , ) administered to individuals 3 years of age and older, for intramuscular use (flulaval) Administration of 07/17/2018 [facility] ([facility] influenza virus vaccine 12:00:00 AM EDT [facility], ) OFFICE OUTPATIENT VISIT 25 07/17/2018 Bunny EDGEN ([facility] MINUTES 12:00:00 AM [facility], ) COLLECTION VENOUS BLOOD 07/17/2018 MEDG EN ([facility] VENIPUNCTURE 12:00:00 AM [facility], ) Documentation of current 07/17/2018 MED GEN ([facility] medications (procedure) [facility]:00:[facility] Documentation of current 07/17/2018 MED GEN ([facility] medications (procedure) 12:00:00 AM T [facility], ) Documentation of current 07/17/2018 MED GEN ([facility] medications (procedure) 12:00:00 AM T [facility], ) Influenza virus vaccine, 07/17/2018 MED GEN ([facility] split virus, when 12:00:00 AM [facility] , ) administered to individuals 3 years of age and older, for intramuscular use (flulaval) Administration of 07/17/2018 [facility] ([facility] influenza virus vaccine 12:00:00 AM T [facility], ) OFFICE OUTPATIENT VISIT 25 07/17/2018 Bunny EDGEN ([facility] MINUTES 12:00:00 AM [facility], ) COLLECTION VENOUS BLOOD 07/17/2018 MEDG EN ([facility] VENIPUNCTURE 12:00:00 AM [facility], ) Documentation of current 03/02/2018 MED GEN ([facility] medications (procedure) 12:00:00 AM T [facility], ) Documentation of current 03/02/2018 MED GEN ([facility] medications (procedure) 12:00:00 AM EDT edical, ) OFFICE OUTPATIENT VISIT 15 03/02/2018 Bunny ALFREDN ([facility] MINUTES 12:00:00 AM EDT Medical, ) COLLECTION VENOUS BLOOD 03/02/2018 MEDG EN ([facility] VENIPUNCTURE 12:00:00 AM EDT Medical, ) Documentation of current 03/02/2018 MED GEN ([facility] medications (procedure) 12:00:00 AM EDT edical, ) Documentation of current 03/02/2018 MED GEN ([facility] medications (procedure) 12:00:00 AM EDT edical, ) OFFICE OUTPATIENT VISIT 15 03/02/2018 Bunny TIFF ([facility] MINUTES 12:00:00 AM ED Medical, ) COLLECTION VENOUS BLOOD 03/02/2018 MEDG EN ([facility] VENIPUNCTURE 12:00:00 AM ED Medical, ) Documentation of current 03/02/2018 MED GEN ([facility] medications (procedure) 12:00:00 AM EDT edical, ) Documentation of current 03/02/2018 MED GEN ([facility] medications (procedure) 12:00:00 AM EDT edical, ) OFFICE OUTPATIENT VISIT 15 03/02/2018 Bunny ALFREDN ([facility] MINUTES 12:00:00 AM ED Medical, ) COLLECTION VENOUS BLOOD 03/02/2018 MEDG EN ([facility]ation of current 12/04/2017 MED GEN ([facility] medications (procedure) 12:00:00 AM EST edical, ) OFFICE OUTPATIENT VISIT 15 12/04/2017 Bunny ALFREDN ([facility] MINUTES 12:00:00 AM [facility] Medical, ) Documentation of current 12/04/2017 MED GEN ([facility] medications (procedure) 12:00:00 AM EST edical, ) OFFICE OUTPATIENT VISIT 15 12/04/2017 Bunny TIFF ([facility] MINUTES 12:00:00 AM EST Medical, ) Documentation of current 12/04/2017 MED GEN ([facility] medications (procedure) 12:00:00 AM EST edical, ) OFFICE OUTPATIENT VISIT 15 12/04/2017 Bunny MATTHEW ([facility] MINUTES 12:00:00 AM [facility], ) Documentation of current 11/24/2017 MED GEN ([facility] medications (procedure) 12:00:00 AM EST [facility], ) Documentation of current 11/24/2017 MED GEN ([facility] medications (procedure) 12:00:00 AM EST [facility], ) OFFICE OUTPATIENT VISIT 15 11/24/2017 Bunny MATTHEW ([facility] MINUTES 12:00:00 AM [facility], ) TDAP VACCINE 7/> YR IM 11/24/2017 MEDGE N ([facility] 12:00:00 AM [facility], ) IMADM PRQ ID SUBQ/IM NJXS 11/24/2017 ME DGEN ([facility] 1 VACCINE 12:00:00 AM [facility], ) Documentation of current 11/24/2017 MED GEN ([facility] medications (procedure) 12:00:00 AM EST [facility], ) Documentation of current 11/24/2017 MED GEN ([facility] medications (procedure) 12:00:00 AM EST [facility], ) OFFICE OUTPATIENT VISIT 15 11/24/2017 Bunny SIMONAdriana ([facility] MINUTES 12:00:00 AM [facility], ) TDAP VACCINE 7/> YR IM 11/24/2017 MEDGE N ([facility] 12:00:00 AM [facility], ) IMADM PRQ ID SUBQ/IM NJXS 11/24/2017 ME DGEN ([facility] 1 VACCINE 12:00:00 AM [facility], ) Documentation of current 11/24/2017 MED GEN ([facility] medications (procedure) 12:00:00 AM EST [facility], ) Documentation of current 11/24/2017 MED GEN ([facility] medications (procedure) 12:00:00 AM EST [facility], ) OFFICE OUTPATIENT VISIT 15 11/24/2017 Bunny MATTHEW ([facility] MINUTES 12:00:00 AM [facility], ) TDAP VACCINE 7/> YR IM 11/24/2017 MEDGE N ([facility] 12:00:00 AM [facility], ) IMADM PRQ ID SUBQ/IM NJXS 11/24/2017 ME DGEN ([facility] 1 VACCINE 12:00:00 AM [facility] Medical, ) Documentation of current 02/26/2017 MED GEN ([facility] medications (procedure) 12:00:00 AM EDT edical, ) Documentation of current 02/26/2017 MED GEN ([facility] medications (procedure) 12:00:00 AM EDT edical, ) Documentation of current 02/26/2017 MED GEN ([facility] medications (procedure) 12:00:00 AM EDT edical, ) Documentation of current 02/26/2017 MED GEN ([facility] medications (procedure) 12:00:00 AM EDT edical, ) Documentation of current 02/26/2017 MED GEN ([facility] medications (procedure) 12:00:00 AM EDT edical, ) Documentation of current 02/26/2017 MED GEN ([facility] medications (procedure) 12:00:00 AM EDT edical, ) OFFICE OUTPATIENT VISIT 02/26/2017 Bunny MATTHEW ([facility] MINUTES 12:00:00 AM [facility] Medical, ) ECG ROUTINE ECG W/LEAST 12 02/26/2017 Bunny MATTHEW ([facility] LDS W/I&R 12:00:00 AM [facility] Medical, ) Documentation of current 02/26/2017 MED GEN ([facility] medications (procedure) 12:00:00 AM EDT edical, ) Documentation of current 02/26/2017 MED GEN ([facility] medications (procedure) 12:00:00 AM EDT edical, ) Documentation of current 02/26/2017 MED GEN ([facility] medications (procedure) 12:00:00 AM EDT edical, ) Documentation of current 02/26/2017 MED GEN ([facility] medications (procedure) 12:00:00 AM EDT edical, PC) Documentation of current 02/26/2017 MED GEN ([facility] medications (procedure) 12:00:00 AM EDT edical, ) Documentation of current 02/26/2017 MED GEN ([facility] medications (procedure) 12:00:00 AM EDT edical, PC) OFFICE OUTPATIENT VISIT 25 02/26/2017 Bunny SIMONN ([facility] MINUTES 12:00:00 AM EDT Medical, ) ECG ROUTINE ECG W/LEAST 12 02/26/2017 Bunny EDGEN ([facility] LDS W/I&R 12:00:00 AM EDT Medical, ) Documentation of current 02/26/2017 MED GEN ([facility] medications (procedure) 12:00:00 AM EDT edical, ) Documentation of current 02/26/2017 MED GEN ([facility] medications (procedure) 12:00:00 AM EDT edical, ) Documentation of current 02/26/2017 MED GEN ([facility] medications (procedure) 12:00:00 AM EDT edical, ) Documentation of current 02/26/2017 MED GEN ([facility] medications (procedure) 12:00:00 AM EDT edical, ) Documentation of current 02/26/2017 MED GEN ([facility] medications (procedure) 12:00:00 AM EDT edical, ) Documentation of current 02/26/2017 MED GEN ([facility] medications (procedure) 12:00:00 AM EDT edical, ) OFFICE OUTPATIENT VISIT 25 02/26/2017 Bunny MATTHEW ([facility] MINUTES 12:00:00 AM EDT Medical, ) ECG ROUTINE ECG W/LEAST 12 02/26/2017 Bunny SIMONN ([facility] LDS W/I&R 12:00:00 AM EDT Medical, ) Results ID Date Data Source [id number] 07/02/2020 11:10:00 AM EDT [facility] Name Value Range Interpretation Description Data Sup porting Code Source(s) Document(s ) SARS [facility] coronavirus 2 RNA This lab was ordered by [facility] and reported by [facility]. ID Date Data Source [id number] 06/25/2020 09:55:00 AM EDT [facility] Name Value Range Interpretation Description Data Sup porting Code Source(s) Document(s ) SARS [facility] coronavirus 2 RNA This lab was ordered by [facility] and reported by [facility]. ID Date Data Source [id number] 05/21/2020 10:30:00 AM EDT [facility] Name Value Range Interpretation Description Data Sup porting Code Source(s) Document(s ) SARS [facility] coronavirus 2 RNA This lab was ordered by [facility] and reported by [facility]. ID Date Data Source [id number] 04/17/2020 12:00:00 AM EDT [facility] ([facility]) Name Value Range Interpretation Code Description Data Armida rce(s) Supporting Document(s ) SARS-CoV- Negative Normal (applies to [facility] (St 2 non-numeric [facility] Antibody, results) Medical, PC) IgG ID Date Data Source [id number] 04/17/2020 12:00:00 AM EDT [facility] ([facility] Medical, ) Name Value Range Interpretation Code Description Data Armida rce(s) Supporting Document(s ) SARS-CoV- Negative Normal (applies to [facility] (St 2 non-numeric [facility] Antibody, results) Medical, ) IgM ID Date Data Source [id number] 04/17/2020 12:00:00 AM EDT [facility] ([facility], ) Name Value Range Interpretation Description Data Sup porting Code Source(s) Document(s ) Protein 6.3 g/dL Normal (applies [facility] (St [Mass/volume] in to non-numeric [facility] Serum or Plasma results) Medical, ) Bilirubin.total 0.3 Normal (applies [facility] ( St [Mass/volume] in mg/dL to non-numeric [facility] Serum or Plasma results) Medical, PC) Microalbumin 4.2 g/dL Normal (applies [facility] (St [Mass/time] in to non-numeric [facility] Urine collected for results) Medical, unspecified PC) duration Alkaline 82 IU/L Normal (applies [facility] (St phosphatase to non-numeric [facility] [Enzymatic results) Medical, activity/volume] in PC) Serum, Plasma or Blood Bilirubin.conjugate 0.08 Normal (applies MEDG EN (St d [Mass/volume] in mg/dL to non-numeric [facility] Serum or Plasma results) Medical, PC) Aspartate 21 IU/L Normal (applies [facility] (St aminotransferase to non-numeric [facility] [Enzymatic results) Medical, activity/volume] in PC) Serum or Plasma Alanine 17 IU/L Normal (applies [facility] (St aminotransferase to non-numeric [facility] [Enzymatic results) Medical, activity/volume] in PC) Serum or Plasma ID Date Data Source [id number] 04/17/2020 12:00:00 AM EDT [facility] ([facility], ) Name Value Range Interpretation Description Data Sup porting Code Source(s) Document(s ) Triglyceride 86 mg/dL Normal (applies [facility] (St [Mass/volume] in to non-numeric [facility] Serum or Plasma results) Medical, ) Cholesterol 146 Normal (applies [facility] (St [Mass/volume] in mg/dL to non-numeric [employer] Serum or Plasma results) Medical, PC) HDL Cholesterol 46 mg/dL Normal (applies [facility] ( St to non-numeric [facility] results) Medical, PC) VLDL Cholesterol 17 mg/dL Normal (applies [facility] (St Ja to non-numeric [facility] results) Medical, PC) LDL Cholesterol 83 mg/dL Normal (applies [facility] ( St Calc to non-numeric [facility] results) Medical, ) ID Date Data Source [id number] 04/17/2020 12:00:00 AM ED[facility], ) Name Value Range Interpretation Code Description Data Armida rce(s) Supporting Document(s ) SARS-CoV- Negative Normal (applies to [facility] (St 2 non-numeric [facility] Antibody, results) Medical, ) IgG ID Date Data Source [id number] 04/17/2020 12:00:00 AM EDT [facility] ([facility], ) Name Value Range Interpretation Code Description Data Armida rce(s) Supporting Document(s ) SARS-CoV- Negative Normal (applies to [facility] (St 2 non-numeric [facility] Antibody, results) Medical, ) IgM ID Date Data Source [id number] 04/17/2020 12:00:00 AM EDT [facility] ([facility], ) Name Value Range Interpretation Description Data Sup porting Code Source(s) Document(s ) Protein 6.3 g/dL Normal (applies [facility] (St [Mass/volume] in to non-numeric [facility] Serum or Plasma results) Medical, PC) Microalbumin 4.2 g/dL Normal (applies [facility] (St [Mass/time] in to non-numeric [facility] Urine collected for results) Medical, unspecified PC) duration Bilirubin.total 0.3 Normal (applies [facility] ( St [Mass/volume] in mg/dL to non-numeric [facility] Serum or Plasma results) Medical, ) Bilirubin.conjugate 0.08 Normal (applies MEDG EN (St d [Mass/volume] in mg/dL to non-numeric [facility] Serum or Plasma results) Medical, ) Alkaline 82 IU/L Normal (applies [facility] (St phosphatase to non-numeric [facility] [Enzymatic results) Medical, activity/volume] in ) Serum, Plasma or Blood Alanine 17 IU/L Normal (applies [facility] (St aminotransferase to non-numeric [facility] [Enzymatic results) Medical, activity/volume] in ) Serum or Plasma Aspartate 21 IU/L Normal (applies [facility] (St aminotransferase to non-numeric [facility] [Enzymatic results) Medical, activity/volume] in ) Serum or Plasma ID Date Data Source [id number] 04/17/2020 12:00:00 AM EDT [facility] ([facility], ) Name Value Range Interpretation Description Data Sup porting Code Source(s) Document(s ) Triglyceride 86 mg/dL Normal (applies [facility] (St [Mass/volume] in to non-numeric [facility] Serum or Plasma results) [facility], ) Cholesterol 146 Normal (applies [facility] (St [Mass/volume] in mg/dL to non-numeric [facility] Serum or Plasma results) [facility], ) HDL Cholesterol 46 mg/dL Normal (applies [facility] ( St to non-numeric [employer] results) [facility], ) VLDL Cholesterol 17 mg/dL Normal (applies [facility] (St Ja to non-numeric [facility] results) [facility], ) LDL Cholesterol 83 mg/dL Normal (applies [facility] ( St Calc to non-numeric [facility] results) [facility], ) ID Date Data Source [id number] 09/30/2019 12:00:00 AM EST [facility] ([facility], ) Name Value Range Interpretation Code Description Data Armida rce(s) Supporting Document(s ) TSH 2.110 Normal (applies to [facility] (St uIU/mL non-numeric results) [facility], ) ID Date Data Source [id number] 09/30/2019 12:00:00 AM EST [facility] ([facility], ) Name Value Range Interpretation Description Data Sup porting Code Source(s) Document(s ) Protein 7.0 g/dL Normal (applies [facility] (St [Mass/volume] in to non-numeric [facility] Serum or Plasma results) Medical, ) Microalbumin 4.4 g/dL Normal (applies [facility] (St [Mass/time] in to non-numeric [facility] Urine collected for results) [facility], unspecified PC) duration Bilirubin.total 0.3 Normal (applies [facility] ( St [Mass/volume] in mg/dL to non-numeric [facility] Serum or Plasma results) Medical, ) Bilirubin.conjugate 0.09 Normal (applies MEDG EN (St d [Mass/volume] in mg/dL to non-numeric [facility] Serum or Plasma results) Medical, ) Alkaline 80 IU/L Normal (applies [facility] (St phosphatase to non-numeric [facility] [Enzymatic results) Medical, activity/volume] in ) Serum, Plasma or Blood Aspartate 21 IU/L Normal (applies [facility] (St aminotransferase to non-numeric [facility] [Enzymatic results) Medical, activity/volume] in PC) Serum or Plasma Alanine 14 IU/L Normal (applies [facility] (St aminotransferase to non-numeric [facility] [Enzymatic results) Medical, activity/volume] in ) Serum or Plasma ID Date Data Source [id number] 09/30/2019 12:00:00 AM EST [facility] ([facility], ) Name Value Range Interpretation Description Data Sup porting Code Source(s) Document(s ) Cholesterol 172 Normal (applies [facility] (St [Mass/volume] in mg/dL to non-numeric [facility] Serum or Plasma results) Medical, ) Triglyceride 127 Normal (applies [facility]GEN (St [Mass/volume] in mg/dL to non-numeric [facility] Serum or Plasma results) Medical, ) HDL Cholesterol 50 mg/dL Normal (applies [facility]GEN ( St to non-numeric [facility] results) [facility], ) LDL Cholesterol 97 mg/dL Normal (applies [facility]GEN ( St Calc to non-numeric [facility] results) Medical, ) VLDL Cholesterol 25 mg/dL Normal (applies [facility] (St Ja to non-numeric [facility] results) Medical, ) ID Date Data Source [id number] 09/30/2019 12:00:00 AM EST [facility] ([facility], ) Name Value Range Interpretation Code Description Data Armida rce(s) Supporting Document(s ) TSH 2.110 Normal (applies to [facility]GEN (St uIU/mL non-numeric results) [facility] Ma dical, ) ID Date Data Source [id number] 09/30/2019 12:00:00 AM EST [facility] ([facility], ) Name Value Range Interpretation Description Data Sup porting Code Source(s) Document(s ) Protein 7.0 g/dL Normal (applies [facility] (St [Mass/volume] in to non-numeric [facility] Serum or Plasma results) Medical, PC) Bilirubin.total 0.3 Normal (applies [facility]GEN ( St [Mass/volume] in mg/dL to non-numeric [facility] Serum or Plasma results) Medical, ) Microalbumin 4.4 g/dL Normal (applies [facility] (St [Mass/time] in to non-numeric [facility] Urine collected for results) [facility], unspecified PC) duration Bilirubin.conjugate 0.09 Normal (applies MEDG EN (St d [Mass/volume] in mg/dL to non-numeric [facility] Serum or Plasma results) Medical, PC) Alkaline 80 IU/L Normal (applies [facility] (St phosphatase to non-numeric [facility] [Enzymatic results) Medical, activity/volume] in PC) Serum, Plasma or Blood Aspartate 21 IU/L Normal (applies [facility] (St aminotransferase to non-numeric [facility] [Enzymatic results) Medical, activity/volume] in PC) Serum or Plasma Alanine 14 IU/L Normal (applies [facility] (St aminotransferase to non-numeric [facility] [Enzymatic results) Medical, activity/volume] in PC) Serum or Plasma ID Date Data Source [id number] 09/30/2019 12:00:00 AM EST [facility] ([facility], ) Name Value Range Interpretation Description Data Sup porting Code Source(s) Document(s ) Cholesterol 172 Normal (applies [facility] (St [Mass/volume] in mg/dL to non-numeric [facility] Serum or Plasma results) Medical, PC) Triglyceride 127 Normal (applies [facility] (St [Mass/volume] in mg/dL to non-numeric [facility] Serum or Plasma results) Medical, PC) HDL Cholesterol 50 mg/dL Normal (applies [facility]GEN ( St to non-numeric [facility] results) Medical, PC) VLDL Cholesterol 25 mg/dL Normal (applies [facility] (St Ja to non-numeric [facility] results) Medical, PC) LDL Cholesterol 97 mg/dL Normal (applies [facility] ( St Calc to non-numeric [facility] results) Medical, PC) ID Date Data Source [id number] 09/30/2019 12:00:00 AM EST [facility] ([facility], ) Name Value Range Interpretation Code Description Data Armida rce(s) Supporting Document(s ) TSH 2.110 Normal (applies to [facility] (St uIU/mL non-numeric results) [facility] Ma dicsc, ) ID Date Data Source [id number] 09/30/2019 12:00:00 AM EST [facility] ([facility], ) Name Value Range Interpretation Description Data Sup porting Code Source(s) Document(s ) Protein 7.0 g/dL Normal (applies [facility] (St [Mass/volume] in to non-numeric [facility] Serum or Plasma results) Medical, PC) Microalbumin 4.4 g/dL Normal (applies [facility] (St [Mass/time] in to non-numeric [facility] Urine collected for results) Medical, unspecified PC) duration Bilirubin.total 0.3 Normal (applies [facility] ( St [Mass/volume] in mg/dL to non-numeric [facility] Serum or Plasma results) Medical, PC) Bilirubin.conjugate 0.09 Normal (applies MEDG EN (St d [Mass/volume] in mg/dL to non-numeric [facility] Serum or Plasma results) Medical, PC) Aspartate 21 IU/L Normal (applies [facility] (St aminotransferase to non-numeric [facility] [Enzymatic results) Medical, activity/volume] in PC) Serum or Plasma Alkaline 80 IU/L Normal (applies [facility] (St phosphatase to non-numeric [facility] [Enzymatic results) Medical, activity/volume] in PC) Serum, Plasma or Blood Alanine 14 IU/L Normal (applies [facility] (St aminotransferase to non-numeric [facility] [Enzymatic results) Medical, activity/volume] in PC) Serum or Plasma ID Date Data Source [id number] 09/30/2019 12:00:00 AM EST [facility] ([facility], ) Name Value Range Interpretation Description Data Sup porting Code Source(s) Document(s ) Cholesterol 172 Normal (applies [facility] (St [Mass/volume] in mg/dL to non-numeric [facility] Serum or Plasma results) Medical, ) Triglyceride 127 Normal (applies [facility] (St [Mass/volume] in mg/dL to non-numeric [employer] Serum or Plasma results) [facility], ) HDL Cholesterol 50 mg/dL Normal (applies [facility]GEN ( St to non-numeric [employer] results) [facility], ) VLDL Cholesterol 25 mg/dL Normal (applies [facility] (St Ja to non-numeric [facility] results) Medical, ) LDL Cholesterol 97 mg/dL Normal (applies [facility] ( St Calc to non-numeric [facility] results) [facility], ) ID Date Data Source [id number] 03/17/2019 12:00:00 AM EDT [facility], ) Name Value Range Interpretation Description Data Sup porting Code Source(s) Document(s ) Request Test not Normal (applies to [facility] (St Problem performed non-numeric [facility] . results) [facility], ) ID Date Data Source [id number] 03/17/2019 12:00:00 AM EDT [facility] ( [facility], ) Name Value Range Interpretation Description Data Sup porting Code Source(s) Document(s ) Vitamin D, 68.0 Normal (applies to [facility] (St 25-Hydroxy ng/mL non-numeric [facility] results) [facility], ) ID Date Data Source [id number] 03/17/2019 12:00:00 AM EDT [facility] ([facility], ) Name Value Range Interpretation Code Description Data Armida rce(s) Supporting Document(s ) TSH 2.500 Normal (applies to [facility] (St uIU/mL non-numeric results) [facility] Ma dicsc, ) ID Date Data Source [id number] 03/17/2019 12:00:00 AM EDT [facility] ([facility], ) Name Value Range Interpretation Description Data Sup porting Code Source(s) Document(s ) Hemoglobin 5.2 % Normal (applies to [facility] (St A1c/Hemoglobin. non-numeric [employer] total in Blood results) [facility], ) ID Date Data Source [id number] 03/17/2019 12:00:00 AM EDT [facility] ([facility], ) Name Value Range Interpretation Description Data Sup porting Code Source(s) Document(s ) Vitamin B12 396 pg/mL Normal (applies to [facility] (S t non-numeric [employer] results) [facility]) Folate 14.4 Normal (applies to [facility] (St (Folic ng/mL non-numeric [employer] Acid), Serum results) [facility]) ID Date Data Source [id number] 03/17/2019 12:00:00 AM EDT [facility] ([facility], ) Name Value Range Interpretation Description Data Sup porting Code Source(s) Document(s ) Bilirubin.c 0.07 mg/dL Normal (applies to [facility] ( St onjugated non-numeric [facility] [Mass/volum results) [facility]) e] in Serum or Plasma ID Date Data Source [id number] 03/17/2019 12:00:00 AM EDT [facility] ([facility], ) Name Value Range Interpretation Description Data Sup porting Code Source(s) Document(s ) Cholesterol 268 Above high normal [facility] (St [Mass/volume] in mg/dL [facility] Serum or Plasma [facility], ) Triglyceride 192 Above high normal [facility] (S t [Mass/volume] in mg/dL [facility] Serum or Plasma [facility]) VLDL Cholesterol 38 mg/dL Normal (applies [facility] (St Ja to non-numeric [employer] results) [facility]) HDL Cholesterol 47 mg/dL Normal (applies [facility] ( St to non-numeric [employer] results) [facility]) LDL Cholesterol 183 Above high normal [facility] (St Calc mg/dL [facility]) ID Date Data Source [id number] 03/17/2019 12:00:00 AM EDT [facility] ([facility], ) Name Value Range Interpretation Description Data Sup porting Code Source(s) Document(s ) Specific gravity Test not Normal (applies [facility] (St of Pericardial performe to non-numeric [employer] fluid by d. results) [facility], ) Refractometry pH of Lower Test not Normal (applies [facility] (St respiratory performe to non-numeric [employer] specimen d. results) [facility]) Protein Test not Normal (applies [facility] (St [Mass/volume] in performe to non-numeric [facility] Lower d. results) [facility]) respiratory specimen Glucose Test not Normal (applies [facility] (St [Mass/volume] in performe to non-numeric [facility] Urine collected d. results) Medical, PC) for unspecified duration Ketones Test not Normal (applies [facility] (St [Presence] in performe to non-numeric [employer] Blood by Tablet d. results) Medical, PC) ID Date Data Source [id number] 03/17/2019 12:00:00 AM EDT [facility] ([facility]) Name Value Range Interpretation Description Data Sup porting Code Source(s) Document(s ) Glucose 85 mg/dL Normal (applies [facility] (St [Mass/volume] in to non-numeric [employer] Urine collected for results) Medical, unspecified PC) duration Urea nitrogen 15 mg/dL Normal (applies [facility] (St [Mass/volume] in to non-numeric [employer] Serum or Plasma results) Medical, PC) Creatinine 0.74 Normal (applies [facility] (St [Interpretation] in mg/dL to non-numeric [employer] s Urine results) Medical, PC) eGFR If NonAfricn 84 Normal (applies [facility] (St Am mL/min/1 to non-numeric [facility] .73 results) Medical, PC) eGFR If Africn Am 97 Normal (applies [facility] (St mL/min/1 to non-numeric [facility] .73 results) Medical, PC) Sodium 139 Normal (applies [facility] (St [Moles/volume] in mmol/L to non-numeric [employer] Serum or Plasma results) Medical, PC) BUN/Creatinine 20 Normal (applies [facility] (S t Ratio to non-numeric [employer] results) Medical, PC) Potassium 4.7 Normal (applies [facility] (St [Mass/volume] in mmol/L to non-numeric [employer] Blood results) Medical, PC) Carbon dioxide, 23 Normal (applies [facility] ( St total mmol/L to non-numeric [employer] [Moles/volume] in results) Medical, Serum or Plasma PC) Chloride 103 Normal (applies [facility] (St [Moles/volume] in mmol/L to non-numeric [employer] Serum or Plasma results) Medical, PC) Protein 7.5 g/dL Normal (applies [facility] (St [Mass/volume] in to non-numeric [employer] Serum or Plasma results) Medical, PC) Calcium 10.1 Normal (applies [facility] (St [Moles/volume] in mg/dL to non-numeric [facility] Urine collected for results) Medical, unspecified PC) duration Globulin, Total 2.8 g/dL Normal (applies [facility] ( St to non-numeric [employer] results) Medical, ) Microalbumin 4.7 g/dL Normal (applies [facility] (St [Mass/time] in to non-numeric [employer] Urine collected for results) Medical, unspecified ) duration A/G Ratio 1.7 Normal (applies [facility] (St to non-numeric [employer] results) Medical, ) Alkaline 87 IU/L Normal (applies [facility] (St phosphatase to non-numeric [employer] [Enzymatic results) Medical, activity/volume] in PC) Serum, Plasma or Blood Bilirubin.total <0.2 Normal (applies [facility] ( St [Mass/volume] in to non-numeric [employer] Serum or Plasma results) Medical, ) Alanine 12 IU/L Normal (applies [facility] (St aminotransferase to non-numeric [employer] [Enzymatic results) Medical, activity/volume] in PC) Serum or Plasma Aspartate 19 IU/L Normal (applies [facility] (St aminotransferase to non-numeric [employer] [Enzymatic results) Medical, activity/volume] in PC) Serum or Plasma ID Date Data Source [id number] 03/17/2019 12:00:00 AM EDT [facility] ([facility], ) Name Value Range Interpretation Description Data Sup porting Code Source(s) Document(s ) Leukocytes 10.6 Normal (applies [facility] (St [#/volume] in x10E3/uL to non-numeric [employer] Blood by results) Medical, ) Automated count Hemoglobin 14.1 Normal (applies [facility] (St [Mass/volume] in g/dL to non-numeric [employer] Blood results) Medical, ) Erythrocytes 4.76 Normal (applies [facility] (St [#/volume] in x10E6/uL to non-numeric [employer] Blood by results) Medical, ) Automated count Hematocrit 41.6 % Normal (applies [facility] (St [Volume to non-numeric [employer] Fraction] of results) Medical, ) Blood by Automated count MCV 87 fL Normal (applies [facility] (St to non-numeric [employer] results) Medical, ) MCH 29.6 pg Normal (applies [facility] (St to non-numeric [employer] results) Medical, ) RDW 13.9 % Normal (applies [facility] (St to non-numeric [employer] results) Medical, ) MCHC 33.9 Normal (applies [facility] (St g/dL to non-numeric [employer] results) [facility], ) Platelets 294 Normal (applies [facility] (St [#/area] in x10E3/uL to non-numeric [employer] Blood by results) Medical, ) Microscopy high power field Neutrophils [#] 63 % Normal (applies [facility] ( St in Body fluid by to non-numeric [employer] Manual count results) Medical, ) Lymphs 30 % Normal (applies [facility] (St to non-numeric [employer] results) Medical, ) Eos 1 % Normal (applies [facility] (St to non-numeric [employer] results) [facility], ) Monocytes 6 % Normal (applies [facility] (St [#/volume] in to non-numeric [employer] Cord blood results) [facility], ) Basos 0 % Normal (applies [facility] (St to non-numeric [employer] results) Medical, ) Neutrophils 6.6 Normal (applies [facility] (St (Absolute) x10E3/uL to non-numeric [employer] results) Medical, ) Lymphs 3.2 Above high normal [facility] (St (Absolute) x10E3/uL [facility], ) Eos (Absolute) 0.1 Normal (applies [facility] (S t x10E3/uL to non-numeric [employer] results) Medical, ) Monocytes(Absolu 0.6 Normal (applies [facility] (St te) x10E3/uL to non-numeric [employer] results) Medical, ) Baso (Absolute) 0.0 Normal (applies [facility] ( St x10E3/uL to non-numeric [employer] results) Medical, ) Immature 0 % Normal (applies [facility] (St Granulocytes to non-numeric [employer] results) [facility], ) Immature Grans 0.0 Normal (applies [facility] (S t (Abs) x10E3/uL to non-numeric [employer] results) [facility], ) ID Date Data Source [id number] 03/17/2019 12:00:00 AM EDT [facility] ([facility], ) Name Value Range Interpretation Description Data Sup porting Code Source(s) Document(s ) Request Test not Normal (applies to [facility] (St Problem performed non-numeric [employer] . results) Medical, ) ID Date Data Source [id number] 03/17/2019 12:00:00 AM EDT [facility], ) Name Value Range Interpretation Description Data Sup porting Code Source(s) Document(s ) Vitamin D, 68.0 Normal (applies to [facility] (St 25-Hydroxy ng/mL non-numeric [employer] results) Medical, ) ID Date Data Source [id number] 03/17/2019 12:00:00 AM EDT [facility] ([facility], ) Name Value Range Interpretation Code Description Data Armida rce(s) Supporting Document(s ) TSH 2.500 Normal (applies to [facility] (St uIU/mL non-numeric results) [facility]ics[facility], ) ID Date Data Source [id number] 03/17/2019 12:00:00 AM EDT [facility] ([facility], ) Name Value Range Interpretation Description Data Sup porting Code Source(s) Document(s ) Hemoglobin 5.2 % Normal (applies to [facility] (St A1c/Hemoglobin. non-numeric [employer] total in Blood results) Medical, ) ID Date Data Source [id number] 03/17/2019 12:00:00 AM EDT [facility] ([facility], ) Name Value Range Interpretation Description Data Sup porting Code Source(s) Document(s ) Vitamin B12 396 pg/mL Normal (applies to [facility] (S t non-numeric [employer] results) Medical, ) Folate 14.4 Normal (applies to [facility] (St (Folic ng/mL non-numeric [employer] Acid), Serum results) Medical, ) ID Date Data Source [id number] 03/17/2019 12:00:00 AM EDT [facility] ([facility], ) Name Value Range Interpretation Description Data Sup porting Code Source(s) Document(s ) Bilirubin.c 0.07 mg/dL Normal (applies to [facility] ( St onjugated non-numeric [employer] [Mass/volum results) Medical, ) e] in Serum or Plasma ID Date Data Source [id number] 03/17/2019 12:00:00 AM EDT [facility] ([facility], ) Name Value Range Interpretation Description Data Sup porting Code Source(s) Document(s ) Cholesterol 268 Above high normal [facility] (St [Mass/volume] in mg/dL [facility] Serum or Plasma Medical, ) Triglyceride 192 Above high normal [facility] (S t [Mass/volume] in mg/dL [employer] Serum or Plasma Medical, ) VLDL Cholesterol 38 mg/dL Normal (applies [facility] (St Ja to non-numeric [employer] results) Medical, ) HDL Cholesterol 47 mg/dL Normal (applies [facility] ( St to non-numeric [employer] results) Medical, ) LDL Cholesterol 183 Above high normal [facility] (St Calc mg/dL [facility], ) ID Date Data Source [id number] 03/17/2019 12:00:00 AM EDT [facility] ([facility], ) Name Value Range Interpretation Description Data Sup porting Code Source(s) Document(s ) Specific gravity Test not Normal (applies [facility] (St of Pericardial performe to non-numeric [employer] fluid by d. results) Medical, ) Refractometry Protein Test not Normal (applies [facility] (St [Mass/volume] in performe to non-numeric [employer] Lower d. results) Medical, ) respiratory specimen pH of Lower Test not Normal (applies [facility] (St respiratory performe to non-numeric [employer] specimen d. results) Medical, ) Glucose Test not Normal (applies [facility] (St [Mass/volume] in performe to non-numeric [employer] Urine collected d. results) Medical, ) for unspecified duration Ketones Test not Normal (applies [facility] (St [Presence] in performe to non-numeric [employer] Blood by Tablet d. results) Medical, ) ID Date Data Source [id number] 03/17/2019 12:00:00 AM EDT [facility] ([facility], ) Name Value Range Interpretation Description Data Sup porting Code Source(s) Document(s ) Glucose 85 mg/dL Normal (applies [facility] (St [Mass/volume] in to non-numeric [employer] Urine collected for results) [facility] duration Urea nitrogen 15 mg/dL Normal (applies [facility] (St [Mass/volume] in to non-numeric [employer] Serum or Plasma results) Medical, PC) Creatinine 0.74 Normal (applies [facility] (St [Interpretation] in mg/dL to non-numeric [employer] [facility] Urine results) Medical, PC) eGFR If NonAfricn 84 Normal (applies [facility] (St Am mL/min/1 to non-numeric [employer] .73 results) Medical, PC) eGFR If Africn Am 97 Normal (applies [facility] (St mL/min/1 to non-numeric [employer] .73 results) Medical, PC) BUN/Creatinine 20 Normal (applies [facility] (S t Ratio to non-numeric [employer] results) Medical, PC) Sodium 139 Normal (applies [facility] (St [Moles/volume] in mmol/L to non-numeric [employer] Serum or Plasma results) Medical, PC) Potassium 4.7 Normal (applies [facility] (St [Mass/volume] in mmol/L to non-numeric [employer] Blood results) Medical, PC) Chloride 103 Normal (applies [facility] (St [Moles/volume] in mmol/L to non-numeric [employer] Serum or Plasma results) Medical, PC) Calcium 10.1 Normal (applies [facility] (St [Moles/volume] in mg/dL to non-numeric [employer] Urine collected for results) Medical, unspecified PC) duration Carbon dioxide, 23 Normal (applies [facility] ( St total mmol/L to non-numeric [employer] [Moles/volume] in results) Medical, Serum or Plasma PC) Protein 7.5 g/dL Normal (applies [facility] (St [Mass/volume] in to non-numeric [employer] Serum or Plasma results) Medical, PC) Globulin, Total 2.8 g/dL Normal (applies [facility] ( St to non-numeric [employer] results) Medical, PC) Microalbumin 4.7 g/dL Normal (applies [facility] (St [Mass/time] in to non-numeric [employer] Urine collected for results) Medical, unspecified PC) duration A/G Ratio 1.7 Normal (applies [facility] (St to non-numeric [employer] results) Medical, PC) Bilirubin.total <0.2 Normal (applies [facility] ( St [Mass/volume] in to non-numeric [employer] Serum or Plasma results) Medical, PC) Aspartate 19 IU/L Normal (applies [facility] (St aminotransferase to non-numeric [employer] [Enzymatic results) Medical, activity/volume] in PC) Serum or Plasma Alkaline 87 IU/L Normal (applies [facility] (St phosphatase to non-numeric [employer] [Enzymatic results) Medical, activity/volume] in ) Serum, Plasma or Blood Alanine 12 IU/L Normal (applies [facility] (St aminotransferase to non-numeric [employer] [Enzymatic results) Medical, activity/volume] in ) Serum or Plasma ID Date Data Source [id number] 03/17/2019 12:00:00 AM EDT [facility] ([facility], ) Name Value Range Interpretation Description Data Sup porting Code Source(s) Document(s ) Leukocytes 10.6 Normal (applies [facility] (St [#/volume] in x10E3/uL to non-numeric [employer] Blood by results) Medical, ) Automated count Erythrocytes 4.76 Normal (applies [facility] (St [#/volume] in x10E6/uL to non-numeric [employer] Blood by results) Medical, ) Automated count Hemoglobin 14.1 Normal (applies [facility] (St [Mass/volume] in g/dL to non-numeric [employer] Blood results) Medical, ) Hematocrit 41.6 % Normal (applies [facility] (St [Volume to non-numeric [employer] Fraction] of results) Medical, ) Blood by Automated count MCV 87 fL Normal (applies [facility] (St to non-numeric [employer] results) [facility], ) MCH 29.6 pg Normal (applies [facility] (St to non-numeric [employer] results) Medical, ) MCHC 33.9 Normal (applies [facility] (St g/dL to non-numeric [employer] results) Medical, ) Platelets 294 Normal (applies [facility] (St [#/area] in x10E3/uL to non-numeric [employer] Blood by results) Medical, ) Microscopy high power field RDW 13.9 % Normal (applies [facility] (St to non-numeric [employer] results) Medical, ) Neutrophils [#] 63 % Normal (applies [facility] ( St in Body fluid by to non-numeric [employer] Manual count results) Medical, ) Lymphs 30 % Normal (applies [facility] (St to non-numeric [employer] results) Medical, ) Monocytes 6 % Normal (applies [facility] (St [#/volume] in to non-numeric [employer] Cord blood results) Medical, ) Eos 1 % Normal (applies [facility] (St to non-numeric [employer] results) Medical, ) Neutrophils 6.6 Normal (applies [facility] (St (Absolute) x10E3/uL to non-numeric [employer] results) [facility], ) Basos 0 % Normal (applies [facility] (St to non-numeric [employer] results) [facility], ) Lymphs 3.2 Above high normal [facility] (St (Absolute) x10E3/uL [employer], ) Monocytes(Absolu 0.6 Normal (applies [facility] (St te) x10E3/uL to non-numeric [employer] results) Medical, ) Baso (Absolute) 0.0 Normal (applies [facility] ( St x10E3/uL to non-numeric [employer] results) [facility], ) Eos (Absolute) 0.1 Normal (applies [facility] (S t x10E3/uL to non-numeric [employer] results) [facility], ) Immature Grans 0.0 Normal (applies [facility] (S t (Abs) x10E3/uL to non-numeric [employer] results) [facility], ) Immature 0 % Normal (applies [facility] (St Granulocytes to non-numeric [employer] results) [facility], ) ID Date Data Source [id number] 03/17/2019 12:00:00 AM EDT [facility] ([facility], ) Name Value Range Interpretation Description Data Sup porting Code Source(s) Document(s ) Request Test not Normal (applies to [facility] (St Problem performed non-numeric [employer] . results) [facility], ) ID Date Data Source [id number] 03/17/2019 12:00:00 AM EDT [facility] ([facility], ) Name Value Range Interpretation Description Data Sup porting Code Source(s) Document(s ) Vitamin D, 68.0 Normal (applies to [facility] (St 25-Hydroxy ng/mL non-numeric [employer] results) [facility], ) ID Date Data Source [id number] 03/17/2019 12:00:00 AM EDT [facility] ([facility], ) Name Value Range Interpretation Code Description Data Armida rce(s) Supporting Document(s ) TSH 2.500 Normal (applies to [facility] (St uIU/mL non-numeric results) [facility] Me dical, ) ID Date Data Source [id number] 03/17/2019 12:00:00 AM EDT [facility] ([facility], ) Name Value Range Interpretation Description Data Sup porting Code Source(s) Document(s ) Hemoglobin 5.2 % Normal (applies to [facility] (St A1c/Hemoglobin. non-numeric [employer] total in Blood results) [facility], ) ID Date Data Source [id number] 03/17/2019 12:00:00 AM EDT [facility] ([facility], ) Name Value Range Interpretation Description Data Sup porting Code Source(s) Document(s ) Folate 14.4 Normal (applies to [facility] (St (Folic ng/mL non-numeric [employer] Acid), Serum results) [facility], ) Vitamin B12 396 pg/mL Normal (applies to [facility] (S t non-numeric [employer] results) [facility], ) ID Date Data Source [id number] 03/17/2019 12:00:00 AM EDT [facility] ([facility], ) Name Value Range Interpretation Description Data Sup porting Code Source(s) Document(s ) Bilirubin.c 0.07 mg/dL Normal (applies to [facility] ( St onjugated non-numeric [employer] [Mass/volum results) [facility], ) e] in Serum or Plasma ID Date Data Source [id number] 03/17/2019 12:00:00 AM EDT [facility] ([facility], ) Name Value Range Interpretation Description Data Sup porting Code Source(s) Document(s ) Triglyceride 192 Above high normal [facility] (S t [Mass/volume] in mg/dL [employer] Serum or Plasma [facility], ) Cholesterol 268 Above high normal [facility] (St [Mass/volume] in mg/dL [employer] Serum or Plasma [facility], ) HDL Cholesterol 47 mg/dL Normal (applies [facility] ( St to non-numeric [employer] results) [facility], ) VLDL Cholesterol 38 mg/dL Normal (applies [facility] (St Ja to non-numeric [employer] results) [facility], ) LDL Cholesterol 183 Above high normal [facility] (St Calc mg/dL [facility], ) ID Date Data Source [id number] 03/17/2019 12:00:00 AM EDT [facility] ([facility], ) Name Value Range Interpretation Description Data Sup porting Code Source(s) Document(s ) Specific gravity Test not Normal (applies [facility] (St of Pericardial performe to non-numeric [employer] fluid by d. results) Medical, PC) Refractometry pH of Lower Test not Normal (applies [facility] (St respiratory performe to non-numeric [employer] specimen d. results) Medical, ) Glucose Test not Normal (applies [facility] (St [Mass/volume] in performe to non-numeric [employer] Urine collected d. results) Medical, ) for unspecified duration Protein Test not Normal (applies [facility] (St [Mass/volume] in performe to non-numeric [employer] Lower d. results) Medical, ) respiratory specimen Ketones Test not Normal (applies [facility] (St [Presence] in performe to non-numeric [employer] Blood by Tablet d. results) Medical, ) ID Date Data Source [id number] 03/17/2019 12:00:00 AM EDT [facility] ([facility], ) Name Value Range Interpretation Description Data Sup porting Code Source(s) Document(s ) Glucose 85 mg/dL Normal (applies [facility] (St [Mass/volume] in to non-numeric [employer] Urine collected for results) Medical, unspecified PC) duration Creatinine 0.74 Normal (applies [facility] (St [Interpretation] in mg/dL to non-numeric [employer] [facility] Urine results) Medical, ) Urea nitrogen 15 mg/dL Normal (applies [facility] (St [Mass/volume] in to non-numeric [employer] Serum or Plasma results) Medical, ) eGFR If NonAfricn 84 Normal (applies [facility] (St Am mL/min/1 to non-numeric [employer] .73 results) Medical, ) eGFR If Africn Am 97 Normal (applies [facility] (St mL/min/1 to non-numeric [employer] .73 results) Medical, PC) BUN/Creatinine 20 Normal (applies [facility] (S t Ratio to non-numeric [employer] results) Medical, PC) Sodium 139 Normal (applies [facility] (St [Moles/volume] in mmol/L to non-numeric [employer] Serum or Plasma results) Medical, ) Potassium 4.7 Normal (applies [facility] (St [Mass/volume] in mmol/L to non-numeric [employer] Blood results) Medical, ) Chloride 103 Normal (applies [facility] (St [Moles/volume] in mmol/L to non-numeric [employer] Serum or Plasma results) Medical, ) Carbon dioxide, 23 Normal (applies [facility] ( St total mmol/L to non-numeric [employer] [Moles/volume] in results) Medical, Serum or Plasma PC) Calcium 10.1 Normal (applies [facility] (St [Moles/volume] in mg/dL to non-numeric [employer] Urine collected for results) Medical, unspecified ) duration Microalbumin 4.7 g/dL Normal (applies [facility] (St [Mass/time] in to non-numeric [employer] Urine collected for results) Medical, unspecified ) duration Protein 7.5 g/dL Normal (applies [facility] (St [Mass/volume] in to non-numeric [employer] Serum or Plasma results) Medical, ) Globulin, Total 2.8 g/dL Normal (applies [facility] ( St to non-numeric [employer] results) Medical, ) A/G Ratio 1.7 Normal (applies [facility] (St to non-numeric [employer] results) Medical, ) Alkaline 87 IU/L Normal (applies [facility] (St phosphatase to non-numeric [employer] [Enzymatic results) Medical, activity/volume] in PC) Serum, Plasma or Blood Bilirubin.total <0.2 Normal (applies [facility] ( St [Mass/volume] in to non-numeric [employer] Serum or Plasma results) Medical, ) Aspartate 19 IU/L Normal (applies [facility] (St aminotransferase to non-numeric [employer] [Enzymatic results) Medical, activity/volume] in PC) Serum or Plasma Alanine 12 IU/L Normal (applies [facility] (St aminotransferase to non-numeric [employer] [Enzymatic results) Medical, activity/volume] in PC) Serum or Plasma ID Date Data Source [id number] 03/17/2019 12:00:00 AM EDT [facility] ([facility], ) Name Value Range Interpretation Description Data Sup porting Code Source(s) Document(s ) Leukocytes 10.6 Normal (applies [facility] (St [#/volume] in x10E3/uL to non-numeric [employer] Blood by results) Medical, ) Automated count Erythrocytes 4.76 Normal (applies [facility] (St [#/volume] in x10E6/uL to non-numeric [employer] Blood by results) [facility]) Automated count Hemoglobin 14.1 Normal (applies [facility] (St [Mass/volume] in g/dL to non-numeric [employer] Blood results) [facility], ) Hematocrit 41.6 % Normal (applies [facility] (St [Volume to non-numeric [employer] Fraction] of results) [facility], ) Blood by Automated count MCV 87 fL Normal (applies [facility] (St to non-numeric [employer] results) [facility], ) MCH 29.6 pg Normal (applies [facility] (St to non-numeric [employer] results) [facility], ) MCHC 33.9 Normal (applies [facility] (St g/dL to non-numeric [employer] results) [facility]) Platelets 294 Normal (applies [facility] (St [#/area] in x10E3/uL to non-numeric [employer] Blood by results) [facility], ) Microscopy high power field RDW 13.9 % Normal (applies [facility] (St to non-numeric [employer] results) [facility], ) Neutrophils [#] 63 % Normal (applies [facility] ( St in Body fluid by to non-numeric [employer] Manual count results) [facility], ) Lymphs 30 % Normal (applies [facility] (St to non-numeric [employer] results) [facility]) Monocytes 6 % Normal (applies [facility] (St [#/volume] in to non-numeric [employer] Cord blood results) [facility], ) Eos 1 % Normal (applies [facility] (St to non-numeric [employer] results) [facility]) Basos 0 % Normal (applies [facility] (St to non-numeric [employer] results) [facility], ) Lymphs 3.2 Above high normal [facility] (St (Absolute) x10E3/uL [employer], ) Neutrophils 6.6 Normal (applies [facility] (St (Absolute) x10E3/uL to non-numeric [employer] results) [facility]) Monocytes(Absolu 0.6 Normal (applies [facility] (St te) x10E3/uL to non-numeric [employer] results) [facility], ) Eos (Absolute) 0.1 Normal (applies [facility] (S t x10E3/uL to non-numeric [employer] results) Medical, ) Baso (Absolute) 0.0 Normal (applies [facility] ( St x10E3/uL to non-numeric [employer] results) [facility], ) Immature 0 % Normal (applies [facility] (St Granulocytes to non-numeric [employer] results) [facility], ) Immature Grans 0.0 Normal (applies [facility] (S t (Abs) x10E3/uL to non-numeric [employer] results) [facility], ) ID Date Data Source [id number] 07/17/2018 12:00:00 AM EDT [facility] ([facility], ) Name Value Range Interpretation Code Description Data Armida rce(s) Supporting Document(s ) C-Reactive 2.3 mg/L Normal (applies to [facility] (St Protein, non-numeric [employer] Quant results) [facility], ) ID Date Data Source [id number] 07/17/2018 12:00:00 AM EDT [facility] ([facility], ) Name Value Range Interpretation Description Data Sup porting Code Source(s) Document(s ) Vitamin B12 497 pg/mL Normal (applies to [facility] (S t non-numeric [employer] results) [facility], ) ID Date Data Source [id number] 07/17/2018 12:00:00 AM EDT [facility] ([facility], ) Name Value Range Interpretation Description Data Sup porting Code Source(s) Document(s ) Sedimentation 42 mm/hr Above high normal [facility] ( St Rate-W[facility], ) ID Date Data Source [id number] 07/17/2018 12:00:00 AM EDT [facility] ([facility], ) Name Value Range Interpretation Code Description Data Armida rce(s) Supporting Document(s ) Babesia <1:10 Normal (applies to [facility] (St microti IgM non-numeric [employer] results) [facility], ) Babesia <1:10 Normal (applies to [facility] (St microti IgG non-numeric [employer] results) [facility], ) ID Date Data Source [id number] 07/17/2018 12:00:00 AM EDT [facility] ([facility], ) Name Value Range Interpretation Description Data Sup porting Code Source(s) Document(s ) E. chaffeensis Negative Normal (applies [facility] (S t (HME) IgG Titer to non-numeric [employer] results) Medical, ) E. chaffeensis Negative Normal (applies [facility] (S t (HME) IgM Titer to non-numeric [employer] results) Medical, ) HGE IgG Titer Negative Normal (applies [facility] (St to non-numeric [employer] results) Medical, ) HGE IgM Titer Negative Normal (applies [facility] (St to non-numeric [employer] results) Medical, ) ID Date Data Source [id number] 07/17/2018 12:00:00 AM EDT [facility] ([facility], ) Name Value Range Interpretation Description Data Sup porting Code Source(s) Document(s ) Glucose 86 mg/dL Normal (applies [facility] (St [Mass/volume] in to non-numeric [employer] Urine collected for results) Medical, unspecified PC) duration Urea nitrogen 14 mg/dL Normal (applies [facility] (St [Mass/volume] in to non-numeric [employer] Serum or Plasma results) Medical, ) Creatinine 0.80 Normal (applies [facility] (St [Interpretation] in mg/dL to non-numeric [employer] [facility] Urine results) Medical, ) eGFR If Africn Am 88 Normal (applies [facility] (St mL/min/1 to non-numeric [employer] .73 results) Medical, ) eGFR If NonAfricn 77 Normal (applies [facility] (St Am mL/min/1 to non-numeric [employer] .73 results) Medical, ) Sodium 141 Normal (applies [facility] (St [Moles/volume] in mmol/L to non-numeric [employer] Serum or Plasma results) Medical, ) BUN/Creatinine 18 Normal (applies [facility] (S t Ratio to non-numeric [employer] results) Medical, ) Potassium 4.4 Normal (applies [facility] (St [Mass/volume] in mmol/L to non-numeric [employer] Blood results) Medical, PC) Chloride 101 Normal (applies [facility] (St [Moles/volume] in mmol/L to non-numeric [employer] Serum or Plasma results) Medical, ) Calcium 9.6 Normal (applies [facility] (St [Moles/volume] in mg/dL to non-numeric [employer] Urine collected for results) Medical, unspecified PC) duration Microalbumin 4.4 g/dL Normal (applies [facility] (St [Mass/time] in to non-numeric [employer] Urine collected for results) Medical, unspecified PC) duration Protein 6.8 g/dL Normal (applies [facility] (St [Mass/volume] in to non-numeric [employer] Serum or Plasma results) Medical, PC) Globulin, Total 2.4 g/dL Normal (applies [facility] ( St to non-numeric [employer] results) Medical, PC) A/G Ratio 1.8 Normal (applies [facility] (St to non-numeric [employer] results) Medical, PC) Bilirubin.total 0.3 Normal (applies [facility] ( St [Mass/volume] in mg/dL to non-numeric [employer] Serum or Plasma results) Medical, PC) Aspartate 16 IU/L Normal (applies [facility] (St aminotransferase to non-numeric [employer] [Enzymatic results) Medical, activity/volume] in PC) Serum or Plasma Alkaline 76 IU/L Normal (applies [facility] (St phosphatase to non-numeric [employer] [Enzymatic results) Medical, activity/volume] in PC) Serum, Plasma or Blood ID Date Data Source [id number] 07/17/2018 12:00:00 AM EDT [facility] ([facility], ) Name Value Range Interpretation Code Description Data Armida rce(s) Supporting Document(s ) IgG P93 Absent Normal (applies to [facility] (St Ab. non-numeric [employer] results) Medical, PC) IgG P66 Absent Normal (applies to [facility] (St Ab. non-numeric [employer] results) Medical, PC) IgG P45 Absent Normal (applies to [facility] (St Ab. non-numeric [employer] results) Medical, PC) IgG P58 Absent Normal (applies to [facility] (St Ab. non-numeric [facility] results) Medical, PC) IgG P39 Absent Normal (applies to [facility] (St Ab. non-numeric [employer] results) Medical, PC) IgG P41 Absent Normal (applies to [facility] (St Ab. non-numeric [facility] results) Medical, PC) IgG P30 Absent Normal (applies to [facility] (St Ab. non-numeric [employer] results) Medical, PC) IgG P28 Absent Normal (applies to [facility] (St Ab. non-numeric [employer] results) Medical, ) IgG P23 Absent Normal (applies to [facility] (St Ab. non-numeric [employer] results) Medical, ) IgG P18 Absent Normal (applies to [facility] (St Ab. non-numeric [employer] results) [facility], ) Lyme IgG Negative Normal (applies to [facility] (St WB non-numeric [employer] Interp. results) Medical, ) IgM P41 Absent Normal (applies to [facility] (St Ab. non-numeric [employer] results) Medical, ) IgM P23 Absent Normal (applies to [facility] (St Ab. non-numeric [employer] results) Medical, ) IgM P39 Absent Normal (applies to [facility] (St Ab. non-numeric [employer] results) [facility], ) Lyme IgM Negative Normal (applies to [facility] (St WB non-numeric [employer] Interp. results) [facility], ) ID Date Data Source [id number] 07/17/2018 12:00:00 AM EDT [facility] ([facility], ) Name Value Range Interpretation Description Data Sup porting Code Source(s) Document(s ) Leukocytes 9.3 Normal (applies [facility] (St [#/volume] in x10E3/uL to non-numeric [employer] Blood by results) [facility], ) Automated count Erythrocytes 4.82 Normal (applies [facility] (St [#/volume] in x10E6/uL to non-numeric [employer] Blood by results) [facility], ) Automated count Hemoglobin 14.3 Normal (applies [facility] (St [Mass/volume] in g/dL to non-numeric [employer] Blood results) [facility], ) Hematocrit 43.5 % Normal (applies [facility] (St [Volume to non-numeric [employer] Fraction] of results) [facility], ) Blood by Automated count MCV 90 fL Normal (applies [facility] (St to non-numeric [employer] results) [facility], ) MCH 29.7 pg Normal (applies [facility] (St to non-numeric [employer] results) [facility], ) MCHC 32.9 Normal (applies [facility] (St g/dL to non-numeric [employer] results) [facility], ) RDW 13.9 % Normal (applies [facility] (St to non-numeric [employer] results) [facility], ) Platelets 297 Normal (applies [facility] (St [#/area] in x10E3/uL to non-numeric [employer] Blood by results) [facility], ) Microscopy high power field Neutrophils [#] 67 % Normal (applies [facility] ( St in Body fluid by to non-numeric [employer] Manual count results) [facility], ) Lymphs 27 % Normal (applies [facility] (St to non-numeric [employer] results) [facility], ) Eos 1 % Normal (applies [facility] (St to non-numeric [employer] results) [facility], ) Monocytes 5 % Normal (applies [facility] (St [#/volume] in to non-numeric [employer] Cord blood results) [facility], ) Basos 0 % Normal (applies [facility] (St to non-numeric [employer] results) [facility]) Lymphs 2.5 Normal (applies [facility] (St (Absolute) x10E3/uL to non-numeric [employer] results) [facility], ) Neutrophils 6.3 Normal (applies [facility] (St (Absolute) x10E3/uL to non-numeric [employer] results) [facility], ) Monocytes(Absolu 0.5 Normal (applies [facility] (St te) x10E3/uL to non-numeric [employer] results) [facility], ) Eos (Absolute) 0.1 Normal (applies [facility] (S t x10E3/uL to non-numeric [employer] results) [facility], ) Baso (Absolute) 0.0 Normal (applies [facility] ( St x10E3/uL to non-numeric [employer] results) [facility], ) Immature 0 % Normal (applies [facility] (St Granulocytes to non-numeric [employer] results) [facility], ) Immature Grans 0.0 Normal (applies [facility] (S t (Abs) x10E3/uL to non-numeric [employer] results) [facility], ) ID Date Data Source [id number] 07/17/2018 12:00:00 AM EDT [facility] ([facility], ) Name Value Range Interpretation Code Description Data Armida rce(s) Supporting Document(s ) C-Reactive 2.3 mg/L Normal (applies to [facility] (St Protein, non-numeric [employer] Quant results) [facility]) ID Date Data Source [id number] 07/17/2018 12:00:00 AM EDT [facility] ([facility], ) Name Value Range Interpretation Description Data Sup porting Code Source(s) Document(s ) Vitamin B12 497 pg/mL Normal (applies to [facility] (S t non-numeric [employer] results) [facility], ) ID Date Data Source [id number] 07/17/2018 12:00:00 AM EDT [facility] ([facility], ) Name Value Range Interpretation Description Data Sup porting Code Source(s) Document(s ) Sedimentation 42 mm/hr Above high normal [facility] ( [facility], ) ID Date Data Source [id number] 07/17/2018 12:00:00 AM EDT [facility] ([facility], ) Name Value Range Interpretation Code Description Data Armida rce(s) Supporting Document(s ) Babesia <1:10 Normal (applies to [facility] (St microti IgM non-numeric [employer] results) [facility], ) Babesia <1:10 Normal (applies to [facility] (St microti IgG non-numeric [employer] results) Medical, ) ID Date Data Source [id number] 07/17/2018 12:00:00 AM EDT [facility] ([facility], ) Name Value Range Interpretation Description Data Sup porting Code Source(s) Document(s ) E. chaffeensis Negative Normal (applies [facility] (S t (HME) IgG Titer to non-numeric [employer] results) Medical, ) E. chaffeensis Negative Normal (applies [facility] (S t (HME) IgM Titer to non-numeric [employer] results) Medical, ) HGE IgG Titer Negative Normal (applies [facility] (St to non-numeric [employer] results) Medical, PC) HGE IgM Titer Negative Normal (applies [facility] (St to non-numeric [employer] results) Medical, ) ID Date Data Source [id number] 07/17/2018 12:00:00 AM EDT [facility] ([facility], ) Name Value Range Interpretation Description Data Sup porting Code Source(s) Document(s ) Glucose 86 mg/dL Normal (applies [facility] (St [Mass/volume] in to non-numeric [employer] Urine collected for results) Medical, unspecified ) duration Urea nitrogen 14 mg/dL Normal (applies [facility] (St [Mass/volume] in to non-numeric [employer] Serum or Plasma results) Medical, PC) eGFR If NonAfricn 77 Normal (applies [facility] (St Am mL/min/1 to non-numeric [employer] .73 results) Medical, PC) Creatinine 0.80 Normal (applies [facility] (St [Interpretation] in mg/dL to non-numeric [employer] s Urine results) Medical, PC) eGFR If Africn Am 88 Normal (applies [facility] (St mL/min/1 to non-numeric [employer] .73 results) Medical, PC) BUN/Creatinine 18 Normal (applies [facility] (S t Ratio to non-numeric [employer] results) Medical, PC) Sodium 141 Normal (applies [facility] (St [Moles/volume] in mmol/L to non-numeric [employer] Serum or Plasma results) Medical, PC) Chloride 101 Normal (applies [facility] (St [Moles/volume] in mmol/L to non-numeric [employer] Serum or Plasma results) Medical, PC) Potassium 4.4 Normal (applies [facility] (St [Mass/volume] in mmol/L to non-numeric [employer] Blood results) Medical, PC) Protein 6.8 g/dL Normal (applies [facility] (St [Mass/volume] in to non-numeric [employer] Serum or Plasma results) Medical, PC) Calcium 9.6 Normal (applies [facility] (St [Moles/volume] in mg/dL to non-numeric [employer] Urine collected for results) Medical, unspecified PC) duration Globulin, Total 2.4 g/dL Normal (applies [facility] ( St to non-numeric [employer] results) Medical, PC) Microalbumin 4.4 g/dL Normal (applies [facility] (St [Mass/time] in to non-numeric [employer] Urine collected for results) Medical, unspecified PC) duration A/G Ratio 1.8 Normal (applies [facility] (St to non-numeric [employer] results) Medical, PC) Bilirubin.total 0.3 Normal (applies [facility] ( St [Mass/volume] in mg/dL to non-numeric [employer] Serum or Plasma results) Medical, PC) Alkaline 76 IU/L Normal (applies [facility] (St phosphatase to non-numeric [employer] [Enzymatic results) Medical, activity/volume] in PC) Serum, Plasma or Blood Aspartate 16 IU/L Normal (applies [facility] (St aminotransferase to non-numeric [employer] [Enzymatic results) Medical, activity/volume] in PC) Serum or Plasma ID Date Data Source [id number] 07/17/2018 12:00:00 AM EDT [facility] ([facility], ) Name Value Range Interpretation Code Description Data Armida rce(s) Supporting Document(s ) IgG P93 Absent Normal (applies to [facility] (St Ab. non-numeric [employer] results) Medical, PC) IgG P66 Absent Normal (applies to [facility] (St Ab. non-numeric [employer] results) Medical, PC) IgG P58 Absent Normal (applies to [facility] (St Ab. non-numeric [employer] results) Medical, PC) IgG P45 Absent Normal (applies to [facility] (St Ab. non-numeric [employer] results) Medical, PC) IgG P39 Absent Normal (applies to [facility] (St Ab. non-numeric [employer] results) Medical, PC) IgG P41 Absent Normal (applies to [facility] (St Ab. non-numeric [employer] results) Medical, PC) IgG P30 Absent Normal (applies to [facility] (St Ab. non-numeric [employer] results) Medical, PC) IgG P28 Absent Normal (applies to [facility] (St Ab. non-numeric [employer] results) Medical, PC) IgG P23 Absent Normal (applies to [facility] (St Ab. non-numeric [employer] results) Medical, PC) IgG P18 Absent Normal (applies to [facility] (St Ab. non-numeric [employer] results) Medical, ) Lyme IgG Negative Normal (applies to [facility] (St WB non-numeric [employer] Interp. results) Medical, PC) IgM P41 Absent Normal (applies to [facility] (St Ab. non-numeric [employer] results) Medical, PC) IgM P39 Absent Normal (applies to [facility] (St Ab. non-numeric [employer] results) Medical, PC) IgM P23 Absent Normal (applies to [facility] (St Ab. non-numeric [employer] results) Medical, ) Lyme IgM Negative Normal (applies to [facility] (St WB non-numeric [employer] Interp. results) Medical, ) ID Date Data Source [id number] 07/17/2018 12:00:00 AM EDT [facility] ([facility], ) Name Value Range Interpretation Description Data Sup porting Code Source(s) Document(s ) Leukocytes 9.3 Normal (applies [facility] (St [#/volume] in x10E3/uL to non-numeric [employer] Blood by results) Medical, ) Automated count Erythrocytes 4.82 Normal (applies [facility] (St [#/volume] in x10E6/uL to non-numeric [employer] Blood by results) Medical, ) Automated count Hemoglobin 14.3 Normal (applies [facility] (St [Mass/volume] in g/dL to non-numeric [employer] Blood results) Medical, ) Hematocrit 43.5 % Normal (applies [facility] (St [Volume to non-numeric [employer] Fraction] of results) Medical, ) Blood by Automated count MCV 90 fL Normal (applies [facility] (St to non-numeric [employer] results) [facility], ) MCHC 32.9 Normal (applies [facility] (St g/dL to non-numeric [employer] results) Medical, ) MCH 29.7 pg Normal (applies [facility] (St to non-numeric [employer] results) [facility], ) RDW 13.9 % Normal (applies [facility] (St to non-numeric [employer] results) Medical, ) Platelets 297 Normal (applies [facility] (St [#/area] in x10E3/uL to non-numeric [employer] Blood by results) Medical, ) Microscopy high power field Neutrophils [#] 67 % Normal (applies [facility] ( St in Body fluid by to non-numeric [employer] Manual count results) Medical, ) Monocytes 5 % Normal (applies [facility] (St [#/volume] in to non-numeric [employer] Cord blood results) [facility], ) Lymphs 27 % Normal (applies [facility] (St to non-numeric [employer] results) Medical, ) Eos 1 % Normal (applies [facility] (St to non-numeric [employer] results) Medical, ) Basos 0 % Normal (applies [facility] (St to non-numeric [employer] results) [facility], ) Neutrophils 6.3 Normal (applies [facility] (St (Absolute) x10E3/uL to non-numeric [employer] results) Medical, ) Lymphs 2.5 Normal (applies [facility] (St (Absolute) x10E3/uL to non-numeric [employer] results) [facility], ) Monocytes(Absolu 0.5 Normal (applies [facility] (St te) x10E3/uL to non-numeric [employer] results) Medical, ) Eos (Absolute) 0.1 Normal (applies [facility] (S t x10E3/uL to non-numeric [employer] results) [facility], ) Immature 0 % Normal (applies [facility] (St Granulocytes to non-numeric [employer] results) [facility], ) Baso (Absolute) 0.0 Normal (applies [facility] ( St x10E3/uL to non-numeric [employer] results) Medical, ) Immature Grans 0.0 Normal (applies [facility] (S t (Abs) x10E3/uL to non-numeric [employer] results) [facility], ) ID Date Data Source [id number] 07/17/2018 12:00:00 AM EDT [facility] ([facility], ) Name Value Range Interpretation Code Description Data Armida rce(s) Supporting Document(s ) C-Reactive 2.3 mg/L Normal (applies to [facility] (St Protein, non-numeric [employer] Quant results) [facility], ) ID Date Data Source [id number] 07/17/2018 12:00:00 AM EDT [facility] ([facility], ) Name Value Range Interpretation Description Data Sup porting Code Source(s) Document(s ) Vitamin B12 497 pg/mL Normal (applies to [facility] (S t non-numeric [employer] results) [facility], ) ID Date Data Source [id number] 07/17/2018 12:00:00 AM EDT [facility] ([facility], ) Name Value Range Interpretation Description Data Sup porting Code Source(s) Document(s ) Sedimentation 42 mm/hr Above high normal MED[facility] ( [facility], ) ID Date Data Source [id number] 07/17/2018 12:00:00 AM EDT [facility] ([facility], ) Name Value Range Interpretation Code Description Data Armida rce(s) Supporting Document(s ) Babesia <1:10 Normal (applies to [facility] (St microti IgG non-numeric [employer] results) [facility], ) Babesia <1:10 Normal (applies to [facility] (St microti IgM non-numeric [employer] results) [facility], ) ID Date Data Source [id number] 07/17/2018 12:00:00 AM EDT [facility] ([facility], ) Name Value Range Interpretation Description Data Sup porting Code Source(s) Document(s ) E. chaffeensis Negative Normal (applies MEDGEN (S t (HME) IgG Titer to non-numeric [employer] results) Medical, PC) HGE IgG Titer Negative Normal (applies [facility] (St to non-numeric [employer] results) Medical, PC) E. chaffeensis Negative Normal (applies [facility] (S t (HME) IgM Titer to non-numeric [employer] results) Medical, PC) HGE IgM Titer Negative Normal (applies [facility] (St to non-numeric [employer] results) Medical, ) ID Date Data Source [id number] 07/17/2018 12:00:00 AM EDT [facility] ([facility], ) Name Value Range Interpretation Description Data Sup porting Code Source(s) Document(s ) Glucose 86 mg/dL Normal (applies [facility] (St [Mass/volume] in to non-numeric [employer] Urine collected for results) Medical, unspecified PC) duration Creatinine 0.80 Normal (applies [facility] (St [Interpretation] in mg/dL to non-numeric [employer] s Urine results) Medical, PC) Urea nitrogen 14 mg/dL Normal (applies [facility] (St [Mass/volume] in to non-numeric [employer] Serum or Plasma results) Medical, PC) eGFR If Africn Am 88 Normal (applies [facility] (St mL/min/1 to non-numeric [employer] .73 results) Medical, PC) eGFR If NonAfricn 77 Normal (applies [facility] (St Am mL/min/1 to non-numeric [employer] .73 results) Medical, PC) Sodium 141 Normal (applies [facility] (St [Moles/volume] in mmol/L to non-numeric [employer] Serum or Plasma results) Medical, PC) BUN/Creatinine 18 Normal (applies [facility]GEN (S t Ratio to non-numeric [employer] results) Medical, PC) Potassium 4.4 Normal (applies [facility] (St [Mass/volume] in mmol/L to non-numeric [employer] Blood results) Medical, PC) Chloride 101 Normal (applies [facility] (St [Moles/volume] in mmol/L to non-numeric [employer] Serum or Plasma results) Medical, PC) Calcium 9.6 Normal (applies [facility] (St [Moles/volume] in mg/dL to non-numeric [employer] Urine collected for results) Medical, unspecified PC) duration Protein 6.8 g/dL Normal (applies [facility] (St [Mass/volume] in to non-numeric [employer] Serum or Plasma results) Medical, PC) Globulin, Total 2.4 g/dL Normal (applies [facility] ( St to non-numeric [employer] results) Medical, PC) Microalbumin 4.4 g/dL Normal (applies [facility] (St [Mass/time] in to non-numeric [employer] Urine collected for results) Medical, unspecified PC) duration Bilirubin.total 0.3 Normal (applies [facility] ( St [Mass/volume] in mg/dL to non-numeric [employer] Serum or Plasma results) Medical, PC) A/G Ratio 1.8 Normal (applies [facility] (St to non-numeric [employer] results) Medical, PC) Aspartate 16 IU/L Normal (applies [facility] (St aminotransferase to non-numeric [employer] [Enzymatic results) Medical, activity/volume] in PC) Serum or Plasma Alkaline 76 IU/L Normal (applies [facility] (St phosphatase to non-numeric [employer] [Enzymatic results) Medical, activity/volume] in PC) Serum, Plasma or Blood ID Date Data Source [id number] 07/17/2018 12:00:00 AM EDT [facility] ([facility], ) Name Value Range Interpretation Code Description Data Armida rce(s) Supporting Document(s ) IgG P93 Absent Normal (applies to [facility] (St Ab. non-numeric [employer] results) Medical, PC) IgG P66 Absent Normal (applies to [facility] (St Ab. non-numeric [employer] results) Medical, PC) IgG P58 Absent Normal (applies to [facility] (St Ab. non-numeric [employer] results) Medical, PC) IgG P45 Absent Normal (applies to [facility] (St Ab. non-numeric [employer] results) Medical, PC) IgG P41 Absent Normal (applies to [facility] (St Ab. non-numeric [employer] results) Medical, PC) IgG P39 Absent Normal (applies to [facility] (St Ab. non-numeric [employer] results) Medical, ) IgG P30 Absent Normal (applies to [facility] (St Ab. non-numeric [employer] results) Medical, ) IgG P28 Absent Normal (applies to [facility] (St Ab. non-numeric [employer] results) [facility], ) IgG P18 Absent Normal (applies to [facility] (St Ab. non-numeric [employer] results) Medical, ) IgG P23 Absent Normal (applies to [facility]GEN (St Ab. non-numeric [employer] results) [facility], ) IgM P41 Absent Normal (applies to [facility] (St Ab. non-numeric [employer] results) [facility], ) Lyme IgG Negative Normal (applies to [facility] (St WB non-numeric [employer] Interp. results) [facility]) IgM P39 Absent Normal (applies to [facility]GEN (St Ab. non-numeric [employer] results) Medical, ) IgM P23 Absent Normal (applies to [facility]GEN (St Ab. non-numeric [employer] results) [facility], ) Lyme IgM Negative Normal (applies to [facility] (St WB non-numeric [employer] Interp. results) [facility], ) ID Date Data Source [id number] 07/17/2018 12:00:00 AM EDT [facility] ([facility], ) Name Value Range Interpretation Description Data Sup porting Code Source(s) Document(s ) Leukocytes 9.3 Normal (applies [facility] (St [#/volume] in x10E3/uL to non-numeric [employer] Blood by results) [facility], ) Automated count Erythrocytes 4.82 Normal (applies [facility] (St [#/volume] in x10E6/uL to non-numeric [employer] Blood by results) [facility], ) Automated count Hemoglobin 14.3 Normal (applies [facility] (St [Mass/volume] in g/dL to non-numeric [employer] Blood results) [facility], ) Hematocrit 43.5 % Normal (applies [facility] (St [Volume to non-numeric [employer] Fraction] of results) [facility]) Blood by Automated count MCV 90 fL Normal (applies [facility]GEN (St to non-numeric [employer] results) [facility]) MCH 29.7 pg Normal (applies [facility] (St to non-numeric [employer] results) [facility]) RDW 13.9 % Normal (applies [facility] (St to non-numeric [employer] results) [facility], ) MCHC 32.9 Normal (applies [facility] (St g/dL to non-numeric [employer] results) [facility], ) Neutrophils [#] 67 % Normal (applies [facility]GEN ( St in Body fluid by to non-numeric [employer] Manual count results) [facility], ) Platelets 297 Normal (applies [facility] (St [#/area] in x10E3/uL to non-numeric [employer] Blood by results) [facility], ) Microscopy high power field Lymphs 27 % Normal (applies [facility] (St to non-numeric [employer] results) [facility], ) Eos 1 % Normal (applies [facility] (St to non-numeric [employer] results) [facility]) Monocytes 5 % Normal (applies [facility]GEN (St [#/volume] in to non-numeric [employer] Cord blood results) [facility], ) Basos 0 % Normal (applies [facility] (St to non-numeric [employer] results) [facility], ) Neutrophils 6.3 Normal (applies [facility] (St (Absolute) x10E3/uL to non-numeric [employer] results) [facility], ) Monocytes(Absolu 0.5 Normal (applies MEDGEN (St te) x10E3/uL to non-numeric [employer] results) [facility], ) Lymphs 2.5 Normal (applies [facility]GEN (St (Absolute) x10E3/uL to non-numeric [employer] results) [facility], ) Eos (Absolute) 0.1 Normal (applies MEDGEN (S t x10E3/uL to non-numeric [employer] results) [facility], ) Immature 0 % Normal (applies [facility] (St Granulocytes to non-numeric [employer] results) [facility]) Baso (Absolute) 0.0 Normal (applies MEDGEN ( St x10E3/uL to non-numeric [employer] results) [facility], ) Immature Grans 0.0 Normal (applies [facility]GEN (S t (Abs) x10E3/uL to non-numeric [employer] results) [facility]) ID Date Data Source [id number] 03/02/2018 12:00:00 AM EDT [facility] ([facility], ) Name Value Range Interpretation Code Description Data Armida rce(s) Supporting Document(s ) TSH 1.600 Normal (applies to [facility]GEN (St uIU/mL non-numeric results) [facility], ) ID Date Data Source [id number] 03/02/2018 12:00:00 AM EDT [facility] ([facility], ) Name Value Range Interpretation Description Data Sup porting Code Source(s) Document(s ) Triglyceride 199 Above high normal [facility] (S t [Mass/volume] in mg/dL [facility] Serum or Plasma Medical, ) Cholesterol 266 Above high normal [facility] (St [Mass/volume] in mg/dL [facility] Serum or Plasma Medical, ) HDL Cholesterol 46 mg/dL Normal (applies [facility] ( St to non-numeric [employer] results) Medical, ) VLDL Cholesterol 40 mg/dL Normal (applies [facility] (St Ja to non-numeric [employer] results) Medical, ) LDL Cholesterol 180 Above high normal [facility] (St Calc mg/dL [facility], ) ID Date Data Source [id number] 03/02/2018 12:00:00 AM EDT [facility] ([facility], ) Name Value Range Interpretation Description Data Sup porting Code Source(s) Document(s ) WBC 0-5 Normal (applies to [facility] (St non-numeric [employer] results) Medical, PC) RBC None seen Normal (applies to [facility] (St non-numeric [employer] results) Medical, ) Bacteria Few Normal (applies to [facility] (St [Presence] in non-numeric [employer] Prostatic results) Medical, ) fluid by Light microscopy Epithelial 0-10 Normal (applies to [facility] (St Cells (non non-numeric [employer] renal) results) Medical, ) ID Date Data Source [id number] 03/02/2018 12:00:00 AM EDT [facility] ([facility], ) Name Value Range Interpretation Description Data Sup porting Code Source(s) Document(s ) Specific gravity 1.005 Normal (applies [facility] (St of Pericardial to non-numeric [employer] fluid by results) Medical, Refractometry ) Urine-Color Yellow Normal (applies [facility] (St to non-numeric [facility] results) Medical, ) pH of Lower 6.5 Normal (applies [facility] (St respiratory to non-numeric [facility] specimen results) Medical, ) Appearance of Clear Normal (applies [facility] (St Abdomen to non-numeric [facility] results) Medical, PC) WBC Esterase Trace Abnormal [facility] (St (applies to [facility] non-numeric Medical, results) PC) Protein Negative Normal (applies [facility] (St [Mass/volume] in to non-numeric [facility] Lower results) Medical, respiratory PC) specimen Glucose Negative Normal (applies [facility] (St [Mass/volume] in to non-numeric [facility] Urine collected results) Medical, for unspecified PC) duration Ketones Negative Normal (applies [facility] (St [Presence] in to non-numeric [employer] Blood by Tablet results) Medical, PC) Occult Blood Negative Normal (applies [facility] (St to non-numeric [facility] results) Medical, PC) Urobilinogen,Alverto 0.2 EU/dL Normal (applies [facility] (St i-Qn to non-numeric [facility] results) Medical, PC) Bilirubin Negative Normal (applies [facility] (St [Presence] in to non-numeric [facility] Peritoneal fluid results) Medical, PC) Microscopic See below: Normal (applies [facility] (St Examination to non-numeric [employer] results) Medical, PC) Nitrite, Urine Negative Normal (applies [facility] (S t to non-numeric [employer] results) Medical, PC) ID Date Data Source [id number] 03/02/2018 12:00:00 AM EDT [facility]) Name Value Range Interpretation Description Data Sup porting Code Source(s) Document(s ) Glucose 103 Above high [facility] (St [Mass/volume] in mg/dL normal [facility] Urine collected for Medical, unspecified PC) duration Urea nitrogen 15 mg/dL Normal (applies [facility] (St [Mass/volume] in to non-numeric [employer] Serum or Plasma results) Medical, PC) Creatinine 0.77 Normal (applies [facility] (St [Interpretation] in mg/dL to non-numeric [facility] Urine results) Medical, PC) eGFR If NonAfricn 81 Normal (applies [facility] (St Am mL/min/1 to non-numeric [facility] .73 results) Medical, PC) eGFR If Africn Am 93 Normal (applies [facility] (St mL/min/1 to non-numeric [facility] .73 results) Medical, PC) BUN/Creatinine 19 Normal (applies [facility] (S t Ratio to non-numeric [employer] results) Medical, PC) Potassium 4.2 Normal (applies [facility] (St [Mass/volume] in mmol/L to non-numeric [employer] Blood results) Medical, PC) Sodium 140 Normal (applies [facility] (St [Moles/volume] in mmol/L to non-numeric [employer] Serum or Plasma results) Medical, PC) Chloride 98 Normal (applies [facility] (St [Moles/volume] in mmol/L to non-numeric [employer] Serum or Plasma results) Medical, PC) Carbon dioxide, 28 Normal (applies [facility] ( St total mmol/L to non-numeric [employer] [Moles/volume] in results) Medical, Serum or Plasma PC) Calcium 9.8 Normal (applies [facility] (St [Moles/volume] in mg/dL to non-numeric [facility] Urine collected for results) Medical, unspecified PC) duration Protein 7.3 g/dL Normal (applies [facility] (St [Mass/volume] in to non-numeric [employer] Serum or Plasma results) Medical, PC) Microalbumin 4.7 g/dL Normal (applies [facility] (St [Mass/time] in to non-numeric [employer] Urine collected for results) Medical, unspecified PC) duration Globulin, Total 2.6 g/dL Normal (applies [facility] ( St to non-numeric [employer] results) Medical, PC) A/G Ratio 1.8 Normal (applies [facility] (St to non-numeric [employer] results) Medical, PC) Bilirubin.total 0.4 Normal (applies [facility] ( St [Mass/volume] in mg/dL to non-numeric [employer] Serum or Plasma results) Medical, PC) Alkaline 82 IU/L Normal (applies [facility] (St phosphatase to non-numeric [employer] [Enzymatic results) Medical, activity/volume] in PC) Serum, Plasma or Blood Aspartate 20 IU/L Normal (applies [facility] (St aminotransferase to non-numeric [employer] [Enzymatic results) Medical, activity/volume] in PC) Serum or Plasma Alanine 18 IU/L Normal (applies [facility] (St aminotransferase to non-numeric [employer] [Enzymatic results) Medical, activity/volume] in PC) Serum or Plasma ID Date Data Source [id number] 03/02/2018 12:00:00 AM EDT [facility] ([facility], ) Name Value Range Interpretation Description Data Sup porting Code Source(s) Document(s ) Leukocytes 8.8 Normal (applies [facility] (St [#/volume] in x10E3/uL to non-numeric [employer] Blood by results) Medical, ) Automated count Erythrocytes 4.56 Normal (applies [facility] (St [#/volume] in x10E6/uL to non-numeric [employer] Blood by results) Medical, ) Automated count Hemoglobin 13.5 Normal (applies [facility] (St [Mass/volume] in g/dL to non-numeric [employer] Blood results) Medical, ) MCV 90 fL Normal (applies [facility] (St to non-numeric [employer] results) Medical, ) Hematocrit 40.8 % Normal (applies [facility] (St [Volume to non-numeric [employer] Fraction] of results) Medical, ) Blood by Automated count MCH 29.6 pg Normal (applies [facility] (St to non-numeric [employer] results) Medical, ) RDW 14.3 % Normal (applies [facility] (St to non-numeric [employer] results) Medical, ) MCHC 33.1 Normal (applies [facility] (St g/dL to non-numeric [employer] results) Medical, ) Neutrophils [#] 72 % Normal (applies [facility] ( St in Body fluid by to non-numeric [employer] Manual count results) [facility], ) Platelets 270 Normal (applies [facility] (St [#/area] in x10E3/uL to non-numeric [employer] Blood by results) Medical, ) Microscopy high power field Lymphs 23 % Normal (applies [facility] (St to non-numeric [employer] results) Medical, ) Eos 0 % Normal (applies [facility] (St to non-numeric [employer] results) Medical, ) Monocytes 5 % Normal (applies [facility] (St [#/volume] in to non-numeric [employer] Cord blood results) Medical, ) Neutrophils 6.3 Normal (applies [facility] (St (Absolute) x10E3/uL to non-numeric [employer] results) Medical, ) Basos 0 % Normal (applies [facility] (St to non-numeric [employer] results) Medical, ) Lymphs 2.0 Normal (applies [facility] (St (Absolute) x10E3/uL to non-numeric [employer] results) Medical, ) Monocytes(Absolu 0.5 Normal (applies [facility] (St te) x10E3/uL to non-numeric [employer] results) Medical, ) Eos (Absolute) 0.0 Normal (applies [facility] (S t x10E3/uL to non-numeric [employer] results) Medical, ) Baso (Absolute) 0.0 Normal (applies [facility] ( St x10E3/uL to non-numeric [employer] results) Medical, ) Immature 0 % Normal (applies [facility] (St Granulocytes to non-numeric [employer] results) Medical, ) Immature Grans 0.0 Normal (applies [facility] (S t (Abs) x10E3/uL to non-numeric [employer] results) Medical, ) ID Date Data Source [id number] 03/02/2018 12:00:00 AM EDT [facility] ([facility], ) Name Value Range Interpretation Code Description Data Armida rce(s) Supporting Document(s ) TSH 1.600 Normal (applies to [facility] (St uIU/mL non-numeric results) [facility], ) ID Date Data Source [id number] 03/02/2018 12:00:00 AM EDT [facility] ([facility], ) Name Value Range Interpretation Description Data Sup porting Code Source(s) Document(s ) Cholesterol 266 Above high normal [facility] (St [Mass/volume] in mg/dL [employer] Serum or Plasma [facility], ) Triglyceride 199 Above high normal [facility] (S t [Mass/volume] in mg/dL [employer] Serum or Plasma [facility], ) HDL Cholesterol 46 mg/dL Normal (applies [facility] ( St to non-numeric [employer] results) Medical, ) VLDL Cholesterol 40 mg/dL Normal (applies [facility] (St Ja to non-numeric [employer] results) [facility], ) LDL Cholesterol 180 Above high normal [facility] (St Calc mg/dL [facility], ) ID Date Data Source [id number] 03/02/2018 12:00:00 AM EDT [facility] ([facility], ) Name Value Range Interpretation Description Data Sup porting Code Source(s) Document(s ) WBC 0-5 Normal (applies to [facility] (St non-numeric [employer] results) Medical, PC) Epithelial 0-10 Normal (applies to [facility] (St Cells (non non-numeric [employer] renal) results) Medical, PC) RBC None seen Normal (applies to [facility] (St non-numeric [employer] results) Medical, PC) Bacteria Few Normal (applies to [facility] (St [Presence] in non-numeric [employer] Prostatic results) Medical, PC) fluid by Light microscopy ID Date Data Source [id number] 03/02/2018 12:00:00 AM EDT [facility]) Name Value Range Interpretation Description Data Sup porting Code Source(s) Document(s ) Specific gravity 1.005 Normal (applies [facility] (St of Pericardial to non-numeric [employer] fluid by results) Medical, Refractometry PC) Urine-Color Yellow Normal (applies [facility] (St to non-numeric [employer] results) Medical, PC) pH of Lower 6.5 Normal (applies [facility] (St respiratory to non-numeric [employer] specimen results) Medical, PC) Appearance of Clear Normal (applies [facility] (St Abdomen to non-numeric [employer] results) Medical, PC) WBC Esterase Trace Abnormal [facility] (St (applies to [employer] non-numeric Medical, results) PC) Protein Negative Normal (applies [facility] (St [Mass/volume] in to non-numeric [employer] Lower results) Medical, respiratory PC) specimen Ketones Negative Normal (applies [facility] (St [Presence] in to non-numeric [employer] Blood by Tablet results) Medical, PC) Glucose Negative Normal (applies [facility] (St [Mass/volume] in to non-numeric [employer] Urine collected results) Medical, for unspecified PC) duration Occult Blood Negative Normal (applies [facility] (St to non-numeric [employer] results) Medical, PC) Urobilinogen,Alverto 0.2 EU/dL Normal (applies [facility] (St i-Qn to non-numeric [employer] results) Medical, PC) Bilirubin Negative Normal (applies [facility] (St [Presence] in to non-numeric [employer] Peritoneal fluid results) Medical, PC) Nitrite, Urine Negative Normal (applies [facility] (S t to non-numeric [employer] results) Medical, PC) Microscopic See below: Normal (applies [facility] (St Examination to non-numeric [employer] results) Medical, PC) ID Date Data Source [id number] 03/02/2018 12:00:00 AM EDT [facility] ([facility]) Name Value Range Interpretation Description Data Sup porting Code Source(s) Document(s ) Glucose 103 Above high [facility] (St [Mass/volume] in mg/dL normal [employer] Urine collected for Medical, unspecified PC) duration Urea nitrogen 15 mg/dL Normal (applies [facility] (St [Mass/volume] in to non-numeric [employer] Serum or Plasma results) Medical, PC) Creatinine 0.77 Normal (applies [facility] (St [Interpretation] in mg/dL to non-numeric [employer] [facility] Urine results) Medical, PC) eGFR If Africn Am 93 Normal (applies [facility] (St mL/min/1 to non-numeric [employer] .73 results) Medical, PC) eGFR If NonAfricn 81 Normal (applies [facility] (St Am mL/min/1 to non-numeric [employer] .73 results) Medical, PC) BUN/Creatinine 19 Normal (applies [facility] (S t Ratio to non-numeric [employer] results) Medical, PC) Sodium 140 Normal (applies [facility] (St [Moles/volume] in mmol/L to non-numeric [employer] Serum or Plasma results) Medical, PC) Chloride 98 Normal (applies [facility] (St [Moles/volume] in mmol/L to non-numeric [employer] Serum or Plasma results) Medical, PC) Potassium 4.2 Normal (applies [facility] (St [Mass/volume] in mmol/L to non-numeric [employer] Blood results) Medical, PC) Carbon dioxide, 28 Normal (applies [facility] ( St total mmol/L to non-numeric [employer] [Moles/volume] in results) Medical, Serum or Plasma PC) Calcium 9.8 Normal (applies [facility] (St [Moles/volume] in mg/dL to non-numeric [employer] Urine collected for results) Medical, unspecified PC) duration Protein 7.3 g/dL Normal (applies [facility] (St [Mass/volume] in to non-numeric [employer] Serum or Plasma results) Medical, PC) Microalbumin 4.7 g/dL Normal (applies [facility] (St [Mass/time] in to non-numeric [employer] Urine collected for results) Medical, unspecified PC) duration Globulin, Total 2.6 g/dL Normal (applies [facility] ( St to non-numeric [employer] results) Medical, ) A/G Ratio 1.8 Normal (applies [facility] (St to non-numeric [employer] results) Medical, ) Bilirubin.total 0.4 Normal (applies [facility] ( St [Mass/volume] in mg/dL to non-numeric [employer] Serum or Plasma results) Medical, ) Alkaline 82 IU/L Normal (applies [facility] (St phosphatase to non-numeric [employer] [Enzymatic results) Medical, activity/volume] in PC) Serum, Plasma or Blood Aspartate 20 IU/L Normal (applies [facility] (St aminotransferase to non-numeric [employer] [Enzymatic results) Medical, activity/volume] in PC) Serum or Plasma Alanine 18 IU/L Normal (applies [facility] (St aminotransferase to non-numeric [employer] [Enzymatic results) Medical, activity/volume] in PC) Serum or Plasma ID Date Data Source [id number] 03/02/2018 12:00:00 AM EDT [facility] ([facility], ) Name Value Range Interpretation Description Data Sup porting Code Source(s) Document(s ) Leukocytes 8.8 Normal (applies [facility] (St [#/volume] in x10E3/uL to non-numeric [employer] Blood by results) Medical, ) Automated count Hemoglobin 13.5 Normal (applies [facility] (St [Mass/volume] in g/dL to non-numeric [employer] Blood results) Medical, ) Erythrocytes 4.56 Normal (applies [facility] (St [#/volume] in x10E6/uL to non-numeric [employer] Blood by results) Medical, ) Automated count Hematocrit 40.8 % Normal (applies [facility] (St [Volume to non-numeric [employer] Fraction] of results) Medical, ) Blood by Automated count MCH 29.6 pg Normal (applies [facility] (St to non-numeric [employer] results) Medical, ) MCV 90 fL Normal (applies [facility] (St to non-numeric [employer] results) Medical, ) MCHC 33.1 Normal (applies [facility] (St g/dL to non-numeric [employer] results) Medical, ) RDW 14.3 % Normal (applies [facility] (St to non-numeric [employer] results) Medical, ) Platelets 270 Normal (applies [facility] (St [#/area] in x10E3/uL to non-numeric [employer] Blood by results) Medical, ) Microscopy high power field Neutrophils [#] 72 % Normal (applies [facility] ( St in Body fluid by to non-numeric [employer] Manual count results) [facility], ) Lymphs 23 % Normal (applies [facility] (St to non-numeric [employer] results) [facility], ) Eos 0 % Normal (applies [facility] (St to non-numeric [employer] results) [facility], ) Monocytes 5 % Normal (applies [facility] (St [#/volume] in to non-numeric [employer] Cord blood results) [facility], ) Basos 0 % Normal (applies [facility] (St to non-numeric [employer] results) [facility], ) Lymphs 2.0 Normal (applies [facility] (St (Absolute) x10E3/uL to non-numeric [employer] results) Medical, ) Neutrophils 6.3 Normal (applies [facility] (St (Absolute) x10E3/uL to non-numeric [employer] results) [facility], ) Monocytes(Absolu 0.5 Normal (applies [facility] (St te) x10E3/uL to non-numeric [employer] results) [facility], ) Eos (Absolute) 0.0 Normal (applies [facility] (S t x10E3/uL to non-numeric [employer] results) [facility], ) Baso (Absolute) 0.0 Normal (applies [facility] ( St x10E3/uL to non-numeric [employer] results) [facility], ) Immature 0 % Normal (applies [facility] (St Granulocytes to non-numeric [employer] results) [facility], ) Immature Grans 0.0 Normal (applies [facility] (S t (Abs) x10E3/uL to non-numeric [employer] results) [facility], ) ID Date Data Source [id number] 03/02/2018 12:00:00 AM EDT [facility] ([facility], ) Name Value Range Interpretation Code Description Data Armida rce(s) Supporting Document(s ) TSH 1.600 Normal (applies to [facility] (St uIU/mL non-numeric results) [facility] ID Date Data Source [id number] 03/02/2018 12:00:00 AM EDT [facility] ([facility], ) Name Value Range Interpretation Description Data Sup porting Code Source(s) Document(s ) Cholesterol 266 Above high normal [facility] (St [Mass/volume] in mg/dL [facility] Serum or Plasma Medical, ) Triglyceride 199 Above high normal [facility] (S t [Mass/volume] in mg/dL [facility] Serum or Plasma Medical, PC) HDL Cholesterol 46 mg/dL Normal (applies [facility] ( St to non-numeric [employer] results) Medical, PC) LDL Cholesterol 180 Above high normal [facility] (St Calc mg/dL [facility], PC) VLDL Cholesterol 40 mg/dL Normal (applies [facility] (St Ja to non-numeric [employer] results) Medical, PC) ID Date Data Source [id number] 03/02/2018 12:00:00 AM EDT [facility] ([facility], ) Name Value Range Interpretation Description Data Sup porting Code Source(s) Document(s ) RBC None seen Normal (applies to [facility] (St non-numeric [employer] results) Medical, PC) WBC 0-5 Normal (applies to [facility] (St non-numeric [employer] results) Medical, PC) Epithelial 0-10 Normal (applies to [facility] (St Cells (non non-numeric [employer] renal) results) Medical, PC) Bacteria Few Normal (applies to [facility] (St [Presence] in non-numeric [employer] Prostatic results) Medical, ) fluid by Light microscopy ID Date Data Source [id number] 03/02/2018 12:00:00 AM EDT [facility] ([facility], ) Name Value Range Interpretation Description Data Sup porting Code Source(s) Document(s ) pH of Lower 6.5 Normal (applies [facility] (St respiratory to non-numeric [employer] specimen results) Medical, PC) Specific gravity 1.005 Normal (applies [facility] (St of Pericardial to non-numeric [employer] fluid by results) Medical, Refractometry ) Urine-Color Yellow Normal (applies [facility] (St to non-numeric [employer] results) Medical, PC) WBC Esterase Trace Abnormal [facility] (St (applies to [employer] non-numeric Medical, results) PC) Appearance of Clear Normal (applies [facility] (St Abdomen to non-numeric [employer] results) Medical, PC) Protein Negative Normal (applies [facility] (St [Mass/volume] in to non-numeric [employer] Lower results) Medical, respiratory PC) specimen Glucose Negative Normal (applies [facility] (St [Mass/volume] in to non-numeric [employer] Urine collected results) Medical, for unspecified PC) duration Occult Blood Negative Normal (applies [facility] (St to non-numeric [employer] results) Medical, PC) Ketones Negative Normal (applies [facility] (St [Presence] in to non-numeric [employer] Blood by Tablet results) Medical, PC) Bilirubin Negative Normal (applies [facility] (St [Presence] in to non-numeric [employer] Peritoneal fluid results) Medical, PC) Urobilinogen,Alverto 0.2 EU/dL Normal (applies [facility] (St i-Qn to non-numeric [employer] results) Medical, PC) Nitrite, Urine Negative Normal (applies [facility] (S t to non-numeric [employer] results) Medical, PC) Microscopic See below: Normal (applies [facility] (St Examination to non-numeric [employer] results) Medical, PC) ID Date Data Source [id number] 03/02/2018 12:00:00 AM EDT [facility] ([facility]) Name Value Range Interpretation Description Data Sup porting Code Source(s) Document(s ) Glucose 103 Above high [facility] (St [Mass/volume] in mg/dL normal [facility] Urine collected for Medical, unspecified PC) duration Creatinine 0.77 Normal (applies [facility] (St [Interpretation] in mg/dL to non-numeric [employer] Urine results) Medical, PC) Urea nitrogen 15 mg/dL Normal (applies [facility] (St [Mass/volume] in to non-numeric [employer] Serum or Plasma results) Medical, PC) eGFR If Africn Am 93 Normal (applies [facility] (St mL/min/1 to non-numeric [facility] .73 results) Medical, PC) eGFR If NonAfricn 81 Normal (applies [facility] (St Am mL/min/1 to non-numeric [facility] .73 results) Medical, PC) Sodium 140 Normal (applies [facility] (St [Moles/volume] in mmol/L to non-numeric [employer] Serum or Plasma results) Medical, PC) BUN/Creatinine 19 Normal (applies [facility] (S t Ratio to non-numeric [employer] results) Medical, PC) Potassium 4.2 Normal (applies [facility] (St [Mass/volume] in mmol/L to non-numeric [employer] Blood results) Medical, PC) Chloride 98 Normal (applies [facility] (St [Moles/volume] in mmol/L to non-numeric [employer] Serum or Plasma results) Medical, ) Carbon dioxide, 28 Normal (applies [facility] ( St total mmol/L to non-numeric [employer] [Moles/volume] in results) Medical, Serum or Plasma PC) Protein 7.3 g/dL Normal (applies [facility] (St [Mass/volume] in to non-numeric [employer] Serum or Plasma results) Medical, ) Calcium 9.8 Normal (applies [facility] (St [Moles/volume] in mg/dL to non-numeric [employer] Urine collected for results) Medical, unspecified PC) duration Globulin, Total 2.6 g/dL Normal (applies [facility] ( St to non-numeric [employer] results) Medical, ) Microalbumin 4.7 g/dL Normal (applies [facility] (St [Mass/time] in to non-numeric [employer] Urine collected for results) Medical, unspecified PC) duration A/G Ratio 1.8 Normal (applies [facility] (St to non-numeric [employer] results) Medical, PC) Bilirubin.total 0.4 Normal (applies [facility] ( St [Mass/volume] in mg/dL to non-numeric [employer] Serum or Plasma results) Medical, ) Alkaline 82 IU/L Normal (applies [facility] (St phosphatase to non-numeric [employer] [Enzymatic results) Medical, activity/volume] in PC) Serum, Plasma or Blood Aspartate 20 IU/L Normal (applies [facility] (St aminotransferase to non-numeric [facility] [Enzymatic results) Medical, activity/volume] in PC) Serum or Plasma Alanine 18 IU/L Normal (applies [facility] (St aminotransferase to non-numeric [employer] [Enzymatic results) Medical, activity/volume] in PC) Serum or Plasma ID Date Data Source [id number] 03/02/2018 12:00:00 AM EDT [facility] ([facility], ) Name Value Range Interpretation Description Data Sup porting Code Source(s) Document(s ) Leukocytes 8.8 Normal (applies [facility] (St [#/volume] in x10E3/uL to non-numeric [employer] Blood by results) [facility], ) Automated count Erythrocytes 4.56 Normal (applies [facility] (St [#/volume] in x10E6/uL to non-numeric [employer] Blood by results) [facility], ) Automated count Hematocrit 40.8 % Normal (applies [facility] (St [Volume to non-numeric [employer] Fraction] of results) [facility], ) Blood by Automated count Hemoglobin 13.5 Normal (applies [facility] (St [Mass/volume] in g/dL to non-numeric [employer] Blood results) [facility], ) MCH 29.6 pg Normal (applies [facility] (St to non-numeric [employer] results) [facility], ) MCV 90 fL Normal (applies [facility] (St to non-numeric [employer] results) [facility], ) MCHC 33.1 Normal (applies [facility] (St g/dL to non-numeric [employer] results) [facility], ) RDW 14.3 % Normal (applies [facility] (St to non-numeric [employer] results) [facility], ) Platelets 270 Normal (applies [facility] (St [#/area] in x10E3/uL to non-numeric [employer] Blood by results) [facility], ) Microscopy high power field Neutrophils [#] 72 % Normal (applies [facility] ( St in Body fluid by to non-numeric [employer] Manual count results) [facility], ) Lymphs 23 % Normal (applies [facility] (St to non-numeric [employer] results) [facility], ) Eos 0 % Normal (applies [facility] (St to non-numeric [employer] results) [facility], ) Monocytes 5 % Normal (applies [facility] (St [#/volume] in to non-numeric [employer] Cord blood results) [facility], ) Neutrophils 6.3 Normal (applies [facility] (St (Absolute) x10E3/uL to non-numeric [employer] results) [facility], ) Basos 0 % Normal (applies [facility] (St to non-numeric [employer] results) [facility], ) Lymphs 2.0 Normal (applies [facility] (St (Absolute) x10E3/uL to non-numeric [employer] results) [facility], ) Monocytes(Absolu 0.5 Normal (applies [facility] (St te) x10E3/uL to non-numeric [employer] results) Medical, PC) Eos (Absolute) 0.0 Normal (applies [facility] (S t x10E3/uL to non-numeric [employer] results) Medical, PC) Baso (Absolute) 0.0 Normal (applies [facility] ( St x10E3/uL to non-numeric [employer] results) Medical, PC) Immature 0 % Normal (applies [facility] (St Granulocytes to non-numeric [employer] results) Medical, PC) Immature Grans 0.0 Normal (applies [facility] (S t (Abs) x10E3/uL to non-numeric [employer] results) Medical, PC) ID Date Data Source [id number] 12/04/2017 12:00:00 AM EST [facility]) Name Value Range Interpretation Code Description Data Armida rce(s) Supporting Document(s ) Please note: Normal (applies to [facility] ( St non-numeric [facility] results) Medical, PC) ID Date Data Source [id number] 12/04/2017 12:00:00 AM EST [facility]) Name Value Range Interpretation Description Data Sup porting Code Source(s) Document(s ) Influenza A Ag, Negative Normal (applies [facility] ( St EIA to non-numeric [facility] results) Medical, PC) Influenza B Ag, Negative Normal (applies [facility] ( St EIA to non-numeric [facility] results) Medical, PC) Comment See note Normal (applies [facility] (St [Interpretation] to non-numeric [facility] Left eye results) Medical, Narrative PC) Ophthalmometer ID Date Data Source [id number] 12/04/2017 12:00:00 AM EST [facility]) Name Value Range Interpretation Code Description Data Armida rce(s) Supporting Document(s ) ID Date Data Source [id number] 12/04/2017 12:00:00 AM EST [facility]) Name Value Range Interpretation Description Data Sup porting Code Source(s) Document(s ) Influenza A Ag, Negative Normal (applies [facility] ( St EIA to non-numeric [facility] results) [facility], PC) Influenza B Ag, Negative Normal (applies [facility] ( St EIA to non-numeric [facility] results) [facility], PC) Comment See note Normal (applies [facility] (St [Interpretation] to non-numeric [facility] Left eye results) Medical, Narrative PC) Ophthalmometer ID Date Data Source [id number] 12/04/2017 12:00:00 AM EST [facility] ([facility]) Name Value Range Interpretation Code Description Data Armida rce(s) Supporting Document(s ) ID Date Data Source [id number] 12/04/2017 12:00:00 AM EST [facility] ([facility]) Name Value Range Interpretation Description Data Sup porting Code Source(s) Document(s ) Influenza A Ag, Negative Normal (applies [facility] ( St EIA to non-numeric [facility] results) [facility], PC) Comment See note Normal (applies [facility] (St [Interpretation] to non-numeric [facility] Left eye results) Medical, Narrative PC) Ophthalmometer Influenza B Ag, Negative Normal (applies [facility] ( St EIA to non-numeric [facility] results) [facility], PC) ID Date Data Source [id number] 02/26/2017 12:00:00 AM EDT [facility] ([facility]) Name Value Range Interpretation Description Data Sup porting Code Source(s) Document(s ) INR 1.1 Normal (applies [facility] (St to non-numeric [facility] results) [facility], PC) Prothrombin 11.0 sec Normal (applies [facility] (St Time to non-numeric [facility] results) [facility], PC) aPTT 29 sec Normal (applies [facility] (St to non-numeric [facility] results) [facility], PC) ID Date Data Source [id number] 02/26/2017 12:00:00 AM EDT [facility] ([facility]) Name Value Range Interpretation Description Data Sup porting Code Source(s) Document(s ) WBC 6-10 Abnormal (applies [facility] (St to non-numeric [facility] results) [facility], PC) Epithelial >10 Abnormal (applies [facility] (St Cells (non to non-numeric [facility] renal) results) Medical, PC) RBC 0-2 Normal (applies to [facility] (St non-numeric [facility] results) [facility], PC) Mucus Threads Present Normal (applies to [facility] (St non-numeric [facility] results) [facility], PC) Bacteria Few Normal (applies to [facility] (St [Presence] in non-numeric [facility] Prostatic results) Medical, PC) fluid by Light microscopy ID Date Data Source [id number] 02/26/2017 12:00:00 AM EDT [facility] ([facility]) Name Value Range Interpretation Description Data Sup porting Code Source(s) Document(s ) pH of Lower 5.5 Normal (applies [facility] (St respiratory to non-numeric [facility] specimen results) Medical, ) Specific gravity >=1.030 Abnormal [facility] (St of Pericardial (applies to [facility] fluid by non-numeric Medical, Refractometry results) PC) Appearance of Clear Normal (applies [facility] (St Abdomen to non-numeric [facility] results) Medical, PC) Urine-Color Yellow Normal (applies [facility] (St to non-numeric [facility] results) [facility], PC) WBC Esterase Abnormal [facility] (St (applies to [facility] non-numeric Medical, results) PC) Protein Negative Normal (applies [facility] (St [Mass/volume] in to non-numeric [facility] Lower results) Medical, respiratory PC) specimen Glucose Negative Normal (applies [facility] (St [Mass/volume] in to non-numeric [facility] Urine collected results) Medical, for unspecified PC) duration Ketones Trace Abnormal [facility] (St [Presence] in (applies to [facility] Blood by Tablet non-numeric Medical, results) PC) Occult Blood Negative Normal (applies [facility] (St to non-numeric [facility] results) Medical, PC) Bilirubin Negative Normal (applies [facility] (St [Presence] in to non-numeric [facility] Peritoneal fluid results) Medical, ) Urobilinogen,Alverto 0.2 EU/dL Normal (applies [facility] (St i-Qn to non-numeric [facility] results) Medical, PC) Nitrite, Urine Negative Normal (applies [facility] (S t to non-numeric [facility] results) Medical, ) Microscopic See below: Normal (applies [facility] (St Examination to non-numeric [facility] results) Medical, ) ID Date Data Source [id number] 02/26/2017 12:00:00 AM EDT [facility] ([facility]) Name Value Range Interpretation Description Data Sup porting Code Source(s) Document(s ) Glucose, Serum 86 mg/dL Normal (applies [facility] (S t to non-numeric [facility] results) [facility], PC) Urea nitrogen 11 mg/dL Normal (applies [facility] (St [Mass/volume] in to non-numeric [facility] Serum or Plasma results) Medical, ) eGFR If NonAfricn 69 Normal (applies [facility] (St Am mL/min/1 to non-numeric [facility] .73 results) Medical, ) Creatinine, Serum 0.88 Normal (applies [facility] (St mg/dL to non-numeric [facility] results) Medical, ) eGFR If Africn Am 80 Normal (applies [facility] (St mL/min/1 to non-numeric [facility] .73 results) Medical, ) Sodium 145 Above high [facility] (St [Moles/volume] in mmol/L normal [facility] Serum or Plasma Medical, ) BUN/Creatinine 13 Normal (applies [facility] (S t Ratio to non-numeric [facility] results) Medical, ) Potassium, Serum 4.2 Normal (applies [facility] (St mmol/L to non-numeric [facility] results) Medical, ) Chloride 104 Normal (applies [facility] (St [Moles/volume] in mmol/L to non-numeric [facility] Serum or Plasma results) Medical, ) Carbon dioxide, 27 Normal (applies [facility] ( St total mmol/L to non-numeric [facility] [Moles/volume] in results) Medical, Serum or Plasma PC) Protein 6.9 g/dL Normal (applies [facility] (St [Mass/volume] in to non-numeric [facility] Serum or Plasma results) Medical, ) Calcium, Serum 9.8 Normal (applies [facility] (S t mg/dL to non-numeric [facility] results) Medical, ) Globulin, Total 2.7 g/dL Normal (applies [facility] ( St to non-numeric [facility] results) Medical, ) Albumin, Serum 4.2 g/dL Normal (applies [facility] (S t to non-numeric [facility] results) Medical, ) A/G Ratio 1.6 Normal (applies [facility] (St to non-numeric [facility] results) Medical, ) Bilirubin.total 0.3 Normal (applies [facility] ( St [Mass/volume] in mg/dL to non-numeric [facility] Serum or Plasma results) Medical, ) Alkaline 71 IU/L Normal (applies [facility] (St Phosphatase, S to non-numeric [facility] results) Medical, ) Aspartate 16 IU/L Normal (applies [facility] (St aminotransferase to non-numeric [facility] [Enzymatic results) Medical, activity/volume] in ) Serum or Plasma Alanine 11 IU/L Normal (applies [facility] (St aminotransferase to non-numeric [facility] [Enzymatic results) Medical, activity/volume] in ) Serum or Plasma ID Date Data Source [id number] 02/26/2017 12:00:00 AM EDT [facility] ([facility], ) Name Value Range Interpretation Description Data Sup porting Code Source(s) Document(s ) Leukocytes 8.6 Normal (applies [facility] (St [#/volume] in x10E3/uL to non-numeric [facility] Blood by results) Medical, ) Automated count Erythrocytes 4.72 Normal (applies [facility] (St [#/volume] in x10E6/uL to non-numeric [facility] Blood by results) [facility], ) Automated count Hematocrit 42.7 % Normal (applies [facility] (St [Volume to non-numeric [facility] Fraction] of results) [facility], ) Blood by Automated count Hemoglobin 14.0 Normal (applies [facility] (St [Mass/volume] in g/dL to non-numeric [facility] Blood results) Medical, ) MCV 91 fL Normal (applies [facility] (St to non-numeric [facility] results) [facility], ) MCH 29.7 pg Normal (applies [facility] (St to non-numeric [facility] results) [facility], ) MCHC 32.8 Normal (applies [facility] (St g/dL to non-numeric [facility] results) Medical, ) Platelets 288 Normal (applies [facility] (St [#/area] in x10E3/uL to non-numeric [facility] Blood by results) Medical, ) Microscopy high power field RDW 13.9 % Normal (applies [facility] (St to non-numeric [facility] results) Medical, ) Neutrophils [#] 70 % Normal (applies [facility] ( St in Body fluid by to non-numeric [facility] Manual count results) [facility], ) Lymphs 23 % Normal (applies [facility] (St to non-numeric [facility] results) [facility], ) Monocytes 6 % Normal (applies [facility] (St [#/volume] in to non-numeric [facility] Cord blood results) Medical, ) Eos 1 % Normal (applies [facility] (St to non-numeric [facility] results) Medical, ) Basos 0 % Normal (applies [facility] (St to non-numeric [facility] results) Medical, ) Lymphs 1.9 Normal (applies [facility] (St (Absolute) x10E3/uL to non-numeric [facility] results) Medical, ) Neutrophils 6.1 Normal (applies [facility] (St (Absolute) x10E3/uL to non-numeric [facility] results) Medical, ) Monocytes(Absolu 0.5 Normal (applies [facility] (St te) x10E3/uL to non-numeric [facility] results) Medical, ) Eos (Absolute) 0.1 Normal (applies [facility] (S t x10E3/uL to non-numeric [facility] results) Medical, ) Baso (Absolute) 0.0 Normal (applies [facility] ( St x10E3/uL to non-numeric [facility] results) Medical, ) Immature 0 % Normal (applies [facility] (St Granulocytes to non-numeric [facility] results) Medical, ) Immature Grans 0.0 Normal (applies [facility] (S t (Abs) x10E3/uL to non-numeric [facility] results) Medical, ) ID Date Data Source [id number] 02/26/2017 12:00:00 AM EDT [facility] ([facility], ) Name Value Range Interpretation Description Data Sup porting Code Source(s) Document(s ) INR 1.1 Normal (applies [facility] (St to non-numeric [facility] results) Medical, ) aPTT 29 sec Normal (applies [facility] (St to non-numeric [facility] results) Medical, ) Prothrombin 11.0 sec Normal (applies [facility] (St Time to non-numeric [facility] results) Medical, ) ID Date Data Source [id number] 02/26/2017 12:00:00 AM EDT [facility] ([facility], ) Name Value Range Interpretation Description Data Sup porting Code Source(s) Document(s ) WBC 6-10 Abnormal (applies [facility] (St to non-numeric [facility] results) Medical, ) RBC 0-2 Normal (applies to [facility] (St non-numeric [facility] results) Medical, ) Epithelial >10 Abnormal (applies [facility] (St Cells (non to non-numeric [facility] renal) results) Medical, PC) Mucus Threads Present Normal (applies to [facility] (St non-numeric [facility] results) Medical, PC) Bacteria Few Normal (applies to [facility] (St [Presence] in non-numeric [facility] Prostatic results) Medical, PC) fluid by Light microscopy ID Date Data Source [id number] 02/26/2017 12:00:00 AM EDT [facility] ([facility]) Name Value Range Interpretation Description Data Sup porting Code Source(s) Document(s ) Specific gravity >=1.030 Abnormal [facility] (St of Pericardial (applies to [facility] fluid by non-numeric Medical, Refractometry results) PC) Urine-Color Yellow Normal (applies [facility] (St to non-numeric [facility] results) Medical, PC) pH of Lower 5.5 Normal (applies [facility] (St respiratory to non-numeric [employer] specimen results) Medical, ) Appearance of Clear Normal (applies [facility] (St Abdomen to non-numeric [facility] results) Medical, PC) WBC Esterase Abnormal [facility] (St (applies to [facility] non-numeric Medical, results) PC) Protein Negative Normal (applies [facility] (St [Mass/volume] in to non-numeric [facility] Lower results) Medical, respiratory PC) specimen Glucose Negative Normal (applies [facility] (St [Mass/volume] in to non-numeric [facility] Urine collected results) Medical, for unspecified PC) duration Ketones Trace Abnormal [facility] (St [Presence] in (applies to [employer] Blood by Tablet non-numeric Medical, results) PC) Occult Blood Negative Normal (applies [facility] (St to non-numeric [facility] results) Medical, PC) Urobilinogen,Alverto 0.2 EU/dL Normal (applies [facility] (St i-Qn to non-numeric [facility] results) Medical, PC) Bilirubin Negative Normal (applies [facility] (St [Presence] in to non-numeric [facility] Peritoneal fluid results) Medical, PC) Nitrite, Urine Negative Normal (applies [facility] (S t to non-numeric [facility] results) Medical, PC) Microscopic See below: Normal (applies [facility] (St Examination to non-numeric [facility] results) Medical, ) ID Date Data Source [id number] 02/26/2017 12:00:00 AM EDT [facility] ([facility], ) Name Value Range Interpretation Description Data Sup porting Code Source(s) Document(s ) Glucose, Serum 86 mg/dL Normal (applies [facility] (S t to non-numeric [employer] results) Medical, PC) Urea nitrogen 11 mg/dL Normal (applies [facility] (St [Mass/volume] in to non-numeric [employer] Serum or Plasma results) Medical, ) Creatinine, Serum 0.88 Normal (applies [facility] (St mg/dL to non-numeric [facility] results) Medical, ) eGFR If Africn Am 80 Normal (applies [facility] (St mL/min/1 to non-numeric [facility] .73 results) Medical, ) eGFR If NonAfricn 69 Normal (applies [facility] (St Am mL/min/1 to non-numeric [facility] .73 results) Medical, ) Sodium 145 Above high [facility] (St [Moles/volume] in mmol/L normal [facility] Serum or Plasma Medical, ) BUN/Creatinine 13 Normal (applies [facility] (S t Ratio to non-numeric [facility] results) Medical, PC) Potassium, Serum 4.2 Normal (applies [facility] (St mmol/L to non-numeric [employer] results) Medical, ) Carbon dioxide, 27 Normal (applies [facility] ( St total mmol/L to non-numeric [facility] [Moles/volume] in results) Medical, Serum or Plasma PC) Chloride 104 Normal (applies [facility] (St [Moles/volume] in mmol/L to non-numeric [employer] Serum or Plasma results) Medical, ) Protein 6.9 g/dL Normal (applies [facility] (St [Mass/volume] in to non-numeric [employer] Serum or Plasma results) Medical, ) Calcium, Serum 9.8 Normal (applies [facility] (S t mg/dL to non-numeric [employer] results) Medical, ) Albumin, Serum 4.2 g/dL Normal (applies [facility] (S t to non-numeric [employer] results) Medical, PC) Globulin, Total 2.7 g/dL Normal (applies [facility] ( St to non-numeric [facility] results) Medical, PC) A/G Ratio 1.6 Normal (applies [facility] (St to non-numeric [employer] results) [facility], ) Bilirubin.total 0.3 Normal (applies [facility] ( St [Mass/volume] in mg/dL to non-numeric [facility] Serum or Plasma results) [facility], ) Alkaline 71 IU/L Normal (applies [facility] (St Phosphatase, S to non-numeric [employer] results) [facility], ) Aspartate 16 IU/L Normal (applies [facility] (St aminotransferase to non-numeric [facility] [Enzymatic results) Medical, activity/volume] in ) Serum or Plasma Alanine 11 IU/L Normal (applies [facility] (St aminotransferase to non-numeric [facility] [Enzymatic results) Medical, activity/volume] in ) Serum or Plasma ID Date Data Source [id number] 02/26/2017 12:00:00 AM EDT [facility] ([facility], ) Name Value Range Interpretation Description Data Sup porting Code Source(s) Document(s ) Leukocytes 8.6 Normal (applies [facility] (St [#/volume] in x10E3/uL to non-numeric [employer] Blood by results) [facility], ) Automated count Erythrocytes 4.72 Normal (applies [facility] (St [#/volume] in x10E6/uL to non-numeric [employer] Blood by results) [facility], ) Automated count Hemoglobin 14.0 Normal (applies [facility] (St [Mass/volume] in g/dL to non-numeric [employer] Blood results) [facility], ) MCV 91 fL Normal (applies [facility] (St to non-numeric [employer] results) [facility], ) Hematocrit 42.7 % Normal (applies [facility] (St [Volume to non-numeric [employer] Fraction] of results) [facility], ) Blood by Automated count MCH 29.7 pg Normal (applies [facility] (St to non-numeric [employer] results) [facility], ) MCHC 32.8 Normal (applies [facility] (St g/dL to non-numeric [employer] results) [facility], ) RDW 13.9 % Normal (applies [facility] (St to non-numeric [employer] results) [facility], ) Platelets 288 Normal (applies [facility] (St [#/area] in x10E3/uL to non-numeric [employer] Blood by results) [facility], ) Microscopy high power field Lymphs 23 % Normal (applies [facility] (St to non-numeric [employer] results) Medical, ) Neutrophils [#] 70 % Normal (applies [facility] ( St in Body fluid by to non-numeric [employer] Manual count results) Medical, ) Monocytes 6 % Normal (applies [facility] (St [#/volume] in to non-numeric [facility] Cord blood results) Medical, ) Eos 1 % Normal (applies [facility] (St to non-numeric [employer] results) Medical, ) Basos 0 % Normal (applies [facility] (St to non-numeric [employer] results) [facility], ) Lymphs 1.9 Normal (applies [facility] (St (Absolute) x10E3/uL to non-numeric [facility] results) Medical, ) Neutrophils 6.1 Normal (applies [facility] (St (Absolute) x10E3/uL to non-numeric [employer] results) [facility], ) Eos (Absolute) 0.1 Normal (applies [facility] (S t x10E3/uL to non-numeric [facility] results) Medical, ) Monocytes(Absolu 0.5 Normal (applies [facility] (St te) x10E3/uL to non-numeric [employer] results) [facility], ) Baso (Absolute) 0.0 Normal (applies [facility] ( St x10E3/uL to non-numeric [employer] results) [facility], ) Immature 0 % Normal (applies [facility] (St Granulocytes to non-numeric [employer] results) [facility], ) Immature Grans 0.0 Normal (applies [facility] (S t (Abs) x10E3/uL to non-numeric [employer] results) [facility], ) ID Date Data Source [id number] 02/26/2017 12:00:00 AM EDT [facility] ([facility], ) Name Value Range Interpretation Description Data Sup porting Code Source(s) Document(s ) INR 1.1 Normal (applies [facility] (St to non-numeric [facility] results) Medical, ) Prothrombin 11.0 sec Normal (applies [facility] (St Time to non-numeric [employer] results) [facility], ) aPTT 29 sec Normal (applies [facility] (St to non-numeric [employer] results) [facility], ) ID Date Data Source [id number] 02/26/2017 12:00:00 AM EDT [facility] ([facility]) Name Value Range Interpretation Description Data Sup porting Code Source(s) Document(s ) WBC 6-10 Abnormal (applies [facility] (St to non-numeric [employer] results) Medical, PC) Epithelial >10 Abnormal (applies [facility] (St Cells (non to non-numeric [facility] renal) results) Medical, PC) RBC 0-2 Normal (applies to [facility] (St non-numeric [facility] results) Medical, PC) Mucus Threads Present Normal (applies to [facility] (St non-numeric [employer] results) Medical, PC) Bacteria Few Normal (applies to [facility] (St [Presence] in non-numeric [facility] Prostatic results) Medical, PC) fluid by Light microscopy ID Date Data Source [id number] 02/26/2017 12:00:00 AM EDT [facility] ([facility]) Name Value Range Interpretation Description Data Sup porting Code Source(s) Document(s ) Specific gravity >=1.030 Abnormal [facility] (St of Pericardial (applies to [employer] fluid by non-numeric Medical, Refractometry results) PC) Urine-Color Yellow Normal (applies [facility] (St to non-numeric [employer] results) Medical, PC) pH of Lower 5.5 Normal (applies [facility] (St respiratory to non-numeric [employer] specimen results) Medical, PC) Appearance of Clear Normal (applies [facility] (St Abdomen to non-numeric [employer] results) Medical, PC) Protein Negative Normal (applies [facility] (St [Mass/volume] in to non-numeric [facility] Lower results) Medical, respiratory PC) specimen WBC Esterase Abnormal [facility] (St (applies to [facility] non-numeric Medical, results) PC) Glucose Negative Normal (applies [facility] (St [Mass/volume] in to non-numeric [employer] Urine collected results) Medical, for unspecified PC) duration Ketones Trace Abnormal [facility] (St [Presence] in (applies to [employer] Blood by Tablet non-numeric Medical, results) PC) Occult Blood Negative Normal (applies [facility] (St to non-numeric [employer] results) Medical, PC) Bilirubin Negative Normal (applies [facility] (St [Presence] in to non-numeric [facility] Peritoneal fluid results) Medical, PC) Urobilinogen,Alverto 0.2 EU/dL Normal (applies [facility] (St i-Qn to non-numeric [facility] results) Medical, ) Microscopic See below: Normal (applies [facility] (St Examination to non-numeric [employer] results) Medical, ) Nitrite, Urine Negative Normal (applies [facility] (S t to non-numeric [employer] results) Medical, ) ID Date Data Source [id number] 02/26/2017 12:00:00 AM EDT [facility] ([facility], ) Name Value Range Interpretation Description Data Sup porting Code Source(s) Document(s ) Glucose, Serum 86 mg/dL Normal (applies [facility] (S t to non-numeric [employer] results) Medical, ) Urea nitrogen 11 mg/dL Normal (applies [facility] (St [Mass/volume] in to non-numeric [employer] Serum or Plasma results) Medical, ) Creatinine, Serum 0.88 Normal (applies [facility] (St mg/dL to non-numeric [facility] results) Medical, ) eGFR If Africn Am 80 Normal (applies [facility] (St mL/min/1 to non-numeric [facility] .73 results) Medical, ) eGFR If NonAfricn 69 Normal (applies [facility] (St Am mL/min/1 to non-numeric [facility] .73 results) Medical, ) BUN/Creatinine 13 Normal (applies [facility] (S t Ratio to non-numeric [employer] results) Medical, ) Sodium 145 Above high [facility] (St [Moles/volume] in mmol/L normal [facility] Serum or Plasma Medical, ) Potassium, Serum 4.2 Normal (applies [facility] (St mmol/L to non-numeric [employer] results) Medical, ) Carbon dioxide, 27 Normal (applies [facility] ( St total mmol/L to non-numeric [facility] [Moles/volume] in results) Medical, Serum or Plasma PC) Chloride 104 Normal (applies [facility] (St [Moles/volume] in mmol/L to non-numeric [employer] Serum or Plasma results) Medical, ) Protein 6.9 g/dL Normal (applies [facility] (St [Mass/volume] in to non-numeric [employer] Serum or Plasma results) Medical, ) Calcium, Serum 9.8 Normal (applies [facility] (S t mg/dL to non-numeric [employer] results) Medical, ) Albumin, Serum 4.2 g/dL Normal (applies [facility] (S t to non-numeric [employer] results) [facility], ) Globulin, Total 2.7 g/dL Normal (applies [facility] ( St to non-numeric [employer] results) [facility], ) A/G Ratio 1.6 Normal (applies [facility] (St to non-numeric [employer] results) [facility], ) Bilirubin.total 0.3 Normal (applies [facility] ( St [Mass/volume] in mg/dL to non-numeric [facility] Serum or Plasma results) [facility], ) Alkaline 71 IU/L Normal (applies [facility] (St Phosphatase, S to non-numeric [employer] results) [facility], ) Alanine 11 IU/L Normal (applies [facility] (St aminotransferase to non-numeric [facility] [Enzymatic results) Medical, activity/volume] in ) Serum or Plasma Aspartate 16 IU/L Normal (applies [facility] (St aminotransferase to non-numeric [facility] [Enzymatic results) Medical, activity/volume] in ) Serum or Plasma ID Date Data Source [id number] 02/26/2017 12:00:00 AM EDT [facility] ([facility], ) Name Value Range Interpretation Description Data Sup porting Code Source(s) Document(s ) Leukocytes 8.6 Normal (applies [facility] (St [#/volume] in x10E3/uL to non-numeric [facility] Blood by results) [facility], ) Automated count Erythrocytes 4.72 Normal (applies [facility] (St [#/volume] in x10E6/uL to non-numeric [employer] Blood by results) [facility], ) Automated count Hemoglobin 14.0 Normal (applies [facility] (St [Mass/volume] in g/dL to non-numeric [employer] Blood results) [facility], ) Hematocrit 42.7 % Normal (applies [facility] (St [Volume to non-numeric [employer] Fraction] of results) [facility], ) Blood by Automated count MCV 91 fL Normal (applies [facility] (St to non-numeric [employer] results) [facility], ) MCH 29.7 pg Normal (applies [facility] (St to non-numeric [employer] results) [facility], ) MCHC 32.8 Normal (applies [facility] (St g/dL to non-numeric [employer] results) [facility], ) RDW 13.9 % Normal (applies [facility] (St to non-numeric [employer] results) [facility], ) Platelets 288 Normal (applies [facility] (St [#/area] in x10E3/uL to non-numeric [employer] Blood by results) [facility], ) Microscopy high power field Neutrophils [#] 70 % Normal (applies [facility] ( St in Body fluid by to non-numeric [employer] Manual count results) [facility], ) Lymphs 23 % Normal (applies [facility] (St to non-numeric [employer] results) [facility], ) Eos 1 % Normal (applies [facility] (St to non-numeric [employer] results) [facility], ) Monocytes 6 % Normal (applies [facility] (St [#/volume] in to non-numeric [employer] Cord blood results) [facility], ) Neutrophils 6.1 Normal (applies [facility] (St (Absolute) x10E3/uL to non-numeric [employer] results) [facility], ) Basos 0 % Normal (applies [facility] (St to non-numeric [employer] results) [facility], ) Lymphs 1.9 Normal (applies [facility] (St (Absolute) x10E3/uL to non-numeric [employer] results) [facility], ) Eos (Absolute) 0.1 Normal (applies [facility] (S t x10E3/uL to non-numeric [employer] results) [facility], ) Monocytes(Absolu 0.5 Normal (applies [facility] (St te) x10E3/uL to non-numeric [employer] results) [facility], ) Baso (Absolute) 0.0 Normal (applies [facility] ( St x10E3/uL to non-numeric [employer] results) [facility], ) Immature 0 % Normal (applies [facility] (St Granulocytes to non-numeric [employer] results) [facility], ) Immature Grans 0.0 Normal (applies [facility] (S t (Abs) x10E3/uL to non-numeric [employer] results) [facility], ) Procedure Social History Code Duration Value Status Description Data Source(s ) Smoking 06/14/2020 no smoking drinks completed no smoking drinks MEDGEN (St 12:00:00 AM EDT occasionally occasionally [employer], ) Smoking 06/14/2020 Unknown if ever completed Unknown if ever MEDG EN (St 12:00:00 AM EDT smoked smoked Miims Ma armand ) Smoking 05/08/2020 no smoking drinks completed no smoking drinks MEDGEN (St 12:00:00 AM EDT occasionally occasionally [facility], ) Smoking 05/08/2020 Unknown if ever completed Unknown if ever MEDG EN (St 12:00:00 AM EDT smoked smoked Jackelyn Cobos dicblanca, ) Smoking 04/17/2020 no smoking drinks completed no smoking drinks MEDGEN (St 12:00:00 AM EDT occasionally occasionally [facility], ) Smoking 04/17/2020 Unknown if ever completed Unknown if ever MEDG EN (St 12:00:00 AM EDT smoked smoked [facility]) Vital Signs ID Date Data Source UNK Name Value Range Interpretation Code Description Data Source(s) Heart rate 77 /min 77 /min MEDGEN ([facility]) Inhaled oxygen 96 % 96 % MEDGEN ([facility]) Body mass index 30.4 kg/m2 30.4 kg/m2 MEDGEN (S t (BMI) [Ratio] [facility]) Diastolic blood 74 mm[Hg] 74 mm[Hg] MEDGEN (S t pressure [facility]) Systolic blood 122 mm[Hg] 122 mm[Hg] MEDGEN ([facility]) Body weight 177 lb 177 lb MEDGEN ([facility]) Body height 64 in 64 in MEDGEN ([facility]) Heart rate 77 /min 77 /min MEDGEN ([facility]) Inhaled oxygen 96 % 96 % MEDGEN ([facility]) Body mass index 30.4 kg/m2 30.4 kg/m2 MEDGEN (S t (BMI) [Ratio] [facility]) Diastolic blood 74 mm[Hg] 74 mm[Hg] MEDGEN (S t [facility]) Systolic blood 122 mm[Hg] 122 mm[Hg] MEDGEN ([facility]) Body weight 177 lb 177 lb MEDGEN ([facility]) Body height 64 in 64 in MEDGEN ([facility]) Heart rate 77 /min 77 /min MEDGEN ([facility]) Inhaled oxygen 96 % 96 % MEDGEN ([facility] ) Body mass index 30.4 kg/m2 30.4 kg/m2 MEDGEN (S t (BMI) [Ratio] [facility], ) Diastolic blood 74 mm[Hg] 74 mm[Hg] MEDGEN (S t pressure [facility]) Systolic blood 122 mm[Hg] 122 mm[Hg] MEDGEN ([facility]) Body weight 177 lb 177 lb MEDGEN ([facility]) Body height 64 in 64 in [facility] ([facility]) Body mass index 30 kg/m2 30 kg/m2 MEDGEN (S t (BMI) [Ratio] [facility], ) Diastolic blood 72 mm[Hg] 72 mm[Hg] MEDGEN (S t pressure [facility]) Systolic blood 130 mm[Hg] 130 mm[Hg] MEDGEN ([facility]) Body weight 175 lb 175 lb MEDGEN ([facility]) Body height 64 in 64 in MEDGEN ([facility]) Body mass index 30 kg/m2 30 kg/m2 MEDGEN (S t (BMI) [Ratio] [facility]) Diastolic blood 72 mm[Hg] 72 mm[Hg] MEDGEN (S t pressure [facility]) Systolic blood 130 mm[Hg] 130 mm[Hg] MEDGEN ([facility]) Body weight 175 lb 175 lb MEDGEN ([facility]) Body height 64 in 64 in MEDGEN ([facility]) Body mass index 30 kg/m2 30 kg/m2 MEDGEN (S t (BMI) [Ratio] [facility], ) Diastolic blood 72 mm[Hg] 72 mm[Hg] MEDGEN (S t pressure [facility]) Systolic blood 130 mm[Hg] 130 mm[Hg] MEDGEN ([facility]) Body weight 175 lb 175 lb MEDGEN ([facility]) Body height 64 in 64 in MEDGEN ([facility]) Body mass index 29.9 kg/m2 29.9 kg/m2 MEDGEN (S t (BMI) [Ratio] [facility]) Diastolic blood 82 mm[Hg] 82 mm[Hg] MEDGEN (S t pressure [facility]) Systolic blood 136 mm[Hg] 136 mm[Hg] MEDGEN ([facility]) Body weight 174 lb 174 lb MEDGEN ([facility]) Body height 64 in 64 in [facility] ([facility]) Body mass index 29.9 kg/m2 29.9 kg/m2 MEDGEN (S t (BMI) [Ratio] [facility], ) Diastolic blood 82 mm[Hg] 82 mm[Hg] MEDGEN (S t pressure [facility]) Systolic blood 136 mm[Hg] 136 mm[Hg] MEDGEN ([facility]) Body weight 174 lb 174 lb MEDGEN ([facility]) Body height 64 in 64 in [facility] ([facility]) Body mass index 29.9 kg/m2 29.9 kg/m2 MEDGEN (S t (BMI) [Ratio] [facility], ) Diastolic blood 82 mm[Hg] 82 mm[Hg] MEDGEN (S t pressure [facility]) Systolic blood 136 mm[Hg] 136 mm[Hg] MEDGEN ([facility]) Body weight 174 lb 174 lb MEDGEN ([facility]) Body height 64 in 64 in MEDGEN ([facility]) Body mass index 30.2 kg/m2 30.2 kg/m2 MEDGEN (S t (BMI) [Ratio] [facility], ) Diastolic blood 82 mm[Hg] 82 mm[Hg] MEDGEN (S t pressure [facility]) Systolic blood 122 mm[Hg] 122 mm[Hg] MEDGEN ([facility]) Body weight 176 lb 176 lb MEDGEN ([facility]) Body height 64 in 64 in MEDGEN ([facility]) Body mass index 30.2 kg/m2 30.2 kg/m2 MEDGEN (S t (BMI) [Ratio] [facility], ) Diastolic blood 82 mm[Hg] 82 mm[Hg] MEDGEN (S t pressure [facility]) Systolic blood 122 mm[Hg] 122 mm[Hg] MEDGEN ([facility]) Body weight 176 lb 176 lb MEDGEN ([facility]) Body height 64 in 64 in MEDGEN ([facility]) Body mass index 30.2 kg/m2 30.2 kg/m2 MEDGEN (S t (BMI) [Ratio] [facility], ) Diastolic blood 82 mm[Hg] 82 mm[Hg] MEDGEN (S [facility]) Systolic blood 122 mm[Hg] 122 mm[Hg] MEDGEN ([facility]) Body weight 176 lb 176 lb MEDGEN ([facility]) Body height 64 in 64 in MEDGEN ([facility]) Inhaled oxygen 99 % 99 % MEDGEN ([facility]) Body mass index 29.2 kg/m2 29.2 kg/m2 MEDGEN (S t (BMI) [Ratio] [facility], ) Diastolic blood 88 mm[Hg] 88 mm[Hg] MEDGEN (S t [facility]) Systolic blood 122 mm[Hg] 122 mm[Hg] MEDGEN ([facility]) Body weight 170 lb 170 lb MEDGEN ([facility]) Body height 64 in 64 in MEDGEN ([facility]) Heart rate 85 /min 85 /min MEDGEN ([facility]) Body temperature 98.7 F 98.7 F MEDGEN ( [facility]) Heart rate 85 /min 85 /min MEDGEN ([facility]) Body temperature 98.7 F 98.7 F MEDGEN ( [facility]) Inhaled oxygen 99 % 99 % MEDGEN ([facility]) Body mass index 29.2 kg/m2 29.2 kg/m2 MEDGEN (S t (BMI) [Ratio] [facility]) Diastolic blood 88 mm[Hg] 88 mm[Hg] MEDGEN (S [facility]) Systolic blood 122 mm[Hg] 122 mm[Hg] MEDGEN ([facility]) Body weight 170 lb 170 lb MEDGEN ([facility]) Body height 64 in 64 in [facility] Heart rate 85 /min 85 /min MEDGEN ([facility]) Body temperature 98.7 F 98.7 F MEDGEN ( [facility]) Inhaled oxygen 99 % 99 % MEDGEN ([facility]) Body mass index 29.2 kg/m2 29.2 kg/m2 MEDGEN (S t (BMI) [Ratio] [facility]) Diastolic blood 88 mm[Hg] 88 mm[Hg] MEDGEN (S t [facility]) Systolic blood 122 mm[Hg] 122 mm[Hg] MEDGEN ([facility]) Body weight 170 lb 170 lb [facility] Body height 64 in 64 in [facility] ([facility]) Body temperature 98.7 F 98.7 F MEDGEN ( [facility]) Body mass index 29.2 kg/m2 29.2 kg/m2 MEDGEN (S t (BMI) [Ratio] [facility]) Diastolic blood 76 mm[Hg] 76 mm[Hg] MEDGEN (S t [facility]) Systolic blood 130 mm[Hg] 130 mm[Hg] MEDGEN ([facility]) Body weight 170 lb 170 lb [facility] Body height 64 in 64 in MEDGEN ([facility]) Body temperature 98.7 F 98.7 F MEDGEN ( [facility]) Body mass index 29.2 kg/m2 29.2 kg/m2 MEDGEN (S t (BMI) [Ratio] [facility]) Diastolic blood 76 mm[Hg] 76 mm[Hg] MEDGEN (S t [facility]) Systolic blood 130 mm[Hg] 130 mm[Hg] MEDGEN ([facility]) Body weight 170 lb 170 lb [facility] Body height 64 in 64 in [facility]) Body temperature 98.7 F 98.7 F MEDGEN ( [facility]) Body mass index 29.2 kg/m2 29.2 kg/m2 MEDGEN (S t (BMI) [Ratio] [facility], ) Diastolic blood 76 mm[Hg] 76 mm[Hg] MEDGEN (S t pressure [facility]) Systolic blood 130 mm[Hg] 130 mm[Hg] MEDGEN ([facility]) Body weight 170 lb 170 lb MEDGEN ([facility]) Body height 64 in 64 in MEDGEN ([facility]) Heart rate 76 /min 76 /min MEDGEN ([facility]) Respiratory rate 16 /min 16 /min MEDGEN ( [facility]) Body temperature 98.7 F 98.7 F MEDGEN ( [facility]) Inhaled oxygen 96 % 96 % MEDGEN ([facility]) Body mass index 28.8 kg/m2 28.8 kg/m2 MEDGEN (S t (BMI) [Ratio] [facility], ) Diastolic blood 82 mm[Hg] 82 mm[Hg] MEDGEN (S t [facility]) Systolic blood 132 mm[Hg] 132 mm[Hg] MEDGEN ([facility]) Body weight 168 lb 168 lb MEDGEN ([facility]) Body height 64 in 64 in MEDGEN ([facility]) Heart rate 76 /min 76 /min MEDGEN ([facility]) Respiratory rate 16 /min 16 /min MEDGEN ( [facility]) Body temperature 98.7 F 98.7 F MEDGEN ( [facility]) Inhaled oxygen 96 % 96 % MEDGEN ([facility]) Body mass index 28.8 kg/m2 28.8 kg/m2 MEDGEN (S t (BMI) [Ratio] [facility]) Diastolic blood 82 mm[Hg] 82 mm[Hg] MEDGEN (S t pressure [facility]) Systolic blood 132 mm[Hg] 132 mm[Hg] MEDGEN ([facility]) Body weight 168 lb 168 lb MEDGEN ([facility]) Body height 64 in 64 in MEDGEN ([facility]) Heart rate 76 /min 76 /min MEDGEN ([facility]) Respiratory rate 16 /min 16 /min MEDGEN ( [facility]) Body temperature 98.7 F 98.7 F MEDGEN ( [facility]) Inhaled oxygen 96 % 96 % MEDGEN ([facility]) Body mass index 28.8 kg/m2 28.8 kg/m2 MEDGEN (S t (BMI) [Ratio] [facility]) Diastolic blood 82 mm[Hg] 82 mm[Hg] MEDGEN (S t [facility] [place]) Systolic blood 132 mm[Hg] 132 mm[Hg] MEDGEN ([facility]) Body weight 168 lb 168 lb [facility] Body height 64 in 64 in [facility] ([facility]) Body mass index 29.5 kg/m2 29.5 kg/m2 MEDGEN (S t (BMI) [Ratio] [facility]) Diastolic blood 80 mm[Hg] 80 mm[Hg] MEDGEN (S t [facility]) Systolic blood 138 mm[Hg] 138 mm[Hg] MEDGEN ([facility]) Body weight 172 lb 172 lb MEDGEN ([facility]) Body height 64 in 64 in MEDGEN ([facility]) Body mass index 29.5 kg/m2 29.5 kg/m2 MEDGEN (S t (BMI) [Ratio] [facility]) Diastolic blood 80 mm[Hg] 80 mm[Hg] MEDGEN (S [facility]) Systolic blood 138 mm[Hg] 138 mm[Hg] MEDGEN ([facility]) Body weight 172 lb 172 lb MEDGEN ([facility]) Body height 64 in 64 in MEDGEN ([facility]) Body mass index 29.5 kg/m2 29.5 kg/m2 MEDGEN (S t (BMI) [Ratio] [facility]) Diastolic blood 80 mm[Hg] 80 mm[Hg] MEDGEN (S t pressure [facility]) Systolic blood 138 mm[Hg] 138 mm[Hg] MEDGEN ([facility]) Body weight 172 lb 172 lb MEDGEN ([facility]) Body height 64 in 64 in [facility] Body mass index 29.5 kg/m2 29.5 kg/m2 MEDGEN (S t (BMI) [Ratio] [facility]) Diastolic blood 70 mm[Hg] 70 mm[Hg] MEDGEN (S t pressure [facility]) Systolic blood 110 mm[Hg] 110 mm[Hg] MEDGEN ([facility]) Body weight 172 lb 172 lb [facility] ([facility]) [facility] Body mass index 29.5 kg/m2 29.5 kg/m2 MEDGEN (S t (BMI) [Ratio] [facility]) Diastolic blood 70 mm[Hg] 70 mm[Hg] MEDGEN (S t [facility] [place]) Systolic blood 110 mm[Hg] 110 mm[Hg] MEDGEN ([facility]) Body weight 172 lb 172 lb MEDGEN ([facility]) Body height 64 in 64 in MEDGEN ([facility]) Body mass index 29.5 kg/m2 29.5 kg/m2 MEDGEN (S t (BMI) [Ratio] [facility]) Diastolic blood 70 mm[Hg] 70 mm[Hg] MEDGEN (S t [facility] [place]) Systolic blood 110 mm[Hg] 110 mm[Hg] MEDGEN ([facility]) Body weight 172 lb 172 lb [facility]GEN ([facility]) Body height 64 in 64 in [facility])
--- NOTE | 2020-07-07 07:28 | HP ---
Admitting History and Physical - Admission Chief Complaint: Lo wb ack pain History Source: Patient - Smoking History Smoking history: Never smoked Have you smoked in the past 12 months: No - Alcohol/Substance Use Hx Alcohol Use: Yes (SOCIALLY) Home Medications - Allergies Allergies/Adverse Reactions: Allergies Allergy/AdvReac Type Severity Reaction Status Date / Time ciprofloxacin [From Cipro] Allergy "VIOLENTLY Verified 07/06/20 08:45 ILL" Penicillins Allergy "VIOLENTLY Verified 07/06/20 08:45 ILL" - Home Medications Home Medications: Ambulatory Orders Estradiol/Norethindrone Acet [Combipatch 0.05-0.14 mg Ptch] 1 each TD WEEKLY 03/11/17 Gabapentin 800 mg PO TID 05/25/20 Simvastatin 40 mg PO HS 05/25/20 Review of Systems - Review of Systems Constitutional: reports: No Symptoms Eyes: reports: No Symptoms HENT: reports: No Symptoms Neck: reports: No Symptoms Cardiovascular: reports: No Symptoms Respiratory: reports: No Symptoms Gastrointestinal: reports: No Symptoms Genitourinary: reports: No Symptoms Breasts: reports: No Symptoms Reported Musculoskeletal: reports: No Symptoms, Back Pain Integumentary: reports: No Symptoms Neurological: reports: No Symptoms Endocrine: reports: No Symptoms Hematology/Lymphatic: reports: No Symptoms Psychiatric: reports: No Symptoms Physical Examination Vital Signs: Vital Signs Temperature 97.1 F L 07/07/20 06:32 Pulse Rate 76 07/07/20 06:32 Respiratory Rate 20 07/07/20 06:32 Blood Pressure 135/76 07/07/20 06:32 O2 Sat by Pulse Oximetry (%) 98 07/07/20 06:32 Imaging - Results Cat Scan: Report Reviewed, Image Reviewed Assessment/Plan The patients pain is likey secondary to lumabr spondylosis. 1. I will perform b/L L3 L4 L5 medial branch blocks.
[2020-07-07] MEDS ORDERED: BUPIVACAINE HCL/PF 0.75% 10 ML VIAL ONE (07:40)
[2020-07-07] MEDS ORDERED: IOHEXOL 180 MG/1 ML ML IJ ONE (07:45)
[2020-07-07] MEDS ORDERED: BUPIVACAINE HCL/PF 0.75% 10 ML VIAL NR ONE (07:45)
[2020-07-07] MEDS ORDERED: LIDOCAINE HCL 1% PRESERVATIVE FREE - 30ML VIAL IJ ONE (07:45)
[2020-07-07 10:34] VITALS: BP 130/80; PULSE 70; TEMP 97.1
--- NOTE | 2020-07-10 22:33 | PROC ---
Procedure Note Procedure: Pre procedure Diagnosis: Lumbar Spondylosis Post Procedure Diagnosis: same Anesthesia: MAC Procedure Performed: Right and Left L3 L4 L5 Medial Branch Blocks under Fluoroscopic Guidance Procedure: After the risks and benefits were explained, informed consent was obtained. The patient was then taken to the procedure room and positioned prone on the procedure table. Time out was performed. The region overlying the appropriate vertebral bodies was identified using fluoroscopy. The skin was prepped and draped in the usual sterile fashion. The skin and soft tissues were anesthetized using 1% lidocaine. Using fluoroscopic guidance, 22 gauge 3.5 inch spinal needles were then introduced to the juncture of the superior articular processes and the transverse processes of the RIGHT L3, L4, and L5 medial branches are located. Omnipaque 180 confirmed appropriate needle placement. There was no epidural or vascular flow observed. .75% bupivacaine was drawn into a syringe. 0.5cc of this solution was then injected at each level. The same procedure was repeated on the LEFT side at the same levels. The patient tolerated the procedure well and there were no complications. The patient was taken to the post procedure recovery area in good condition. Vital signs remained stable before, and after the procedure. The patient was given oral follow-up instructions.The patient was givena follow up appointment with me in the near future. Rommel Butts D.O.
== END 2020-07-07 10:00 | disposition home or self-care (01) ==
LOC: JASU-SURG 05:09
PROVIDERS: ATTEND Pain Medicine Pain Medicine
PROC: 3E0T33Z Introduction of Anti-inflammatory into Peripheral Nerves and Plexi, Percutaneous Approach (ICD-10-PCS; 2020-07-07)
PROC: 3E0T3BZ Introduction of Anesthetic Agent into Peripheral Nerves and Plexi, Percutaneous Approach (ICD-10-PCS; principal; 2020-07-07 08:00)
DX: M47.816 Spondylosis without myelopathy or radiculopathy, lumbar region (principal); M54.5 Low back pain
CPT/HCPCS: 76000-TC-FY

== ENCOUNTER 2020-07-28 05:33 | Day surgery (SDC) | payer OTHER ==
[2020-07-27 11:11] VITALS: BMI 29.5
--- OUTSIDE RECORDS SUMMARY | 2020-07-28 05:38 | XMS ---
[...] is protected by Article 27-F of the [facility] Public Health law. If you continue you may haveaccess to information: Regarding HIV / AIDS; Provided by facilities licensed or operated by the [facility] Office of Mental Health; or Provided by the [facility] Office for People With Developmental Disabilities. If such information is present, then the following [facility] mandated warning applies: This information has [...] law may result in a fine or intermediate sentence or both. A general authorization for the release of medical or other information is NOT sufficient authorization for further disclosure. Encounters Encounter Providers Location Date Indications Data Source(s ) Attender: Rommel 07/11/2020 [facility] ([facility] [place] 12:00:00 AM [facility]T [facility] Office Attender: Rommle Butts 06/14/2020 12:00:00 AM EDT [facility] ([facility] Office Attender: Rommel Butts 06/14/2020 12:00:00 AM EDT [facility] ([facility] Office Attender: Rommel Butts 04/27/2020 12:00:00 AM EDT [facility] ([facility] Office Attender: Rommel Butts 04/27/2020 12:00:00 AM EDT [facility] ([facility] Office Attender: Darrell 04/17/2020 12:00:00 AM EDT [facility] ([facility] Office Attender: Darrell 04/17/2020 12:00:00 AM EDT [facility] ([facility] Office Attender: Darrell 04/17/2020 12:00:00 AM EDT [facility] ([facility] Office Insurance Providers Payer name Policy type Policy ID Covered Covered democrat's Policy P ami / Coverage democrat ID relationship to Angel Inf ormation type angel HAWORTH [id number] SP [id number] HEALTHCARE (MEDICARE) [facility] [id number] SP [id number] HEALTHCARE (MEDICARE) [facility] [id number] [facility] [id number] [facility] [id number] HA[place]TH [id number] HEALTHCARE (MEDICARE) AARP MEDICARE [id number] COMPLETE [place]WORTH [id number] HEALTHCARE (MEDICARE) Problems, Conditions, and Diagnoses Code Display Name Description Problem Effective Data Type Dates Source(s) M47.817 Spondylosis 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 WITHOUT Problem 020 [facility] (St myelopathy or MYELOPATHY OR 12:00:00 AM [facility] radiculopathy, RADICULOPATHY, EDT Med[facility] , ) lumbosacral region LUMBOSACRAL REGION M47.896 Other spondylosis, OTHER SPONDYLOSIS, Problem 0 [facility] ([address] lumbar region LUMBAR REGION 12:00:00 AM [facility] EDT Medical, ) M47.896 Other spondylosis, OTHER SPONDYLOSIS, Problem 0 [facility] (St lumbar region LUMBAR REGION 12:00:00 AM [facility] EDT Medical, ) M47.896 Other spondylosis, OTHER SPONDYLOSIS, Problem 0 [facility] (St lumbar region LUMBAR REGION 12:00:00 AM [facility] EDT Medical, ) M96.1 Postlaminectomy POSTLAMINECTOMY Problem 04/27/2020 MED[facility] EN (St syndrome, not SYNDROME, NOT 12:00:00 AM [facility] elsewhere classified ELSEWHERE CLASSIFIED EDT Medical, ) M54.16 Radiculopathy, RADICULOPATHY, Problem 04/27/2020 [facility] (St lumbar region LUMBAR REGION 12:00:00 AM [facility] EDT Medical, ) M96.1 Postlaminectomy POSTLAMINECTOMY Problem 04/27/2020 MEDG EN (St syndrome, not SYNDROME, NOT 12:00:00 AM [facility] elsewhere classified ELSEWHERE CLASSIFIED EDT Medical, ) M54.16 Radiculopathy, RADICULOPATHY, Problem 04/27/2020 MED[facility] (St lumbar region LUMBAR REGION 12:00:00 AM [facility] EDT Medical, ) M96.1 Postlaminectomy POSTLAMINECTOMY Problem 04/27/2020 MED[facility] EN (St syndrome, not SYNDROME, NOT 12:00:00 AM [facility] elsewhere classified ELSEWHERE CLASSIFIED EDT Medical, ) M54.16 Radiculopathy, RADICULOPATHY, Problem 04/27/2020 [facility] (St lumbar region LUMBAR REGION 12:00:00 AM [facility]) M96.1 Postlaminectomy POSTLAMINECTOMY Problem 04/27/2020 MEDG EN (St syndrome, not SYNDROME, NOT 12:00:00 AM [facility] elsewhere classified ELSEWHERE CLASSIFIED [facility], ) M54.16 Radiculopathy, RADICULOPATHY, Problem 04/27/2020 MED[facility] (St lumbar region LUMBAR REGION 12:00:00 AM [facility]) E78.5 Hyperlipidemia, HYPERLIPIDEMIA, Problem 04/17/2020 MEDG EN (St unspecified UNSPECIFIED 12:00:00 AM [facility]) Z20.828 Contact with and CONTACT WITH AND Problem 04/17/2020 ME DGEN (St (suspected) exposure (SUSPECTED) EXPOSURE 12:00 :00 AM [facility] to other viral TO OTHER VIRAL EDT Med[facility] , ) communicable COMMUNICABLE diseases DISEASES E78.5 Hyperlipidemia, HYPERLIPIDEMIA, Problem 04/17/2020 MEDG EN (St unspecified UNSPECIFIED 12:00:00 AM [facility]) Z20.828 Contact with and CONTACT WITH AND Problem 04/17/2020 ME DGEN (St (suspected) exposure (SUSPECTED) EXPOSURE 12:00 :00 AM [facility] to other viral TO OTHER VIRAL EDT Medica , ) communicable COMMUNICABLE diseases DISEASES E78.5 Hyperlipidemia, HYPERLIPIDEMIA, Problem 04/17/2020 MED[facility] EN (St unspecified UNSPECIFIED 12:00:00 AM [facility]) Z20.828 Contact with and CONTACT WITH AND Problem 04/17/2020 ME DGEN (St (suspected) exposure (SUSPECTED) EXPOSURE 12:00 :00 AM [facility] to other viral TO OTHER VIRAL EDT Med[facility] , ) communicable COMMUNICABLE diseases DISEASES E78.5 Hyperlipidemia, HYPERLIPIDEMIA, Problem 04/17/2020 MED[facility] EN (St unspecified UNSPECIFIED 12:00:00 AM [facility]) Z20.828 Contact with and CONTACT WITH AND Problem 04/17/2020 ME DGEN (St (suspected) exposure (SUSPECTED) EXPOSURE 12:00 :00 AM [facility] to other viral TO OTHER VIRAL EDT Med[facility] , ) communicable COMMUNICABLE diseases DISEASES E78.5 Hyperlipidemia, HYPERLIPIDEMIA, Problem 04/17/2020 MED[facility] EN (St unspecified UNSPECIFIED 12:00:00 AM [facility], ) Z20.828 Contact with and CONTACT WITH AND Problem 04/17/2020 ME DGEN (St (suspected) exposure (SUSPECTED) EXPOSURE 12:00 :00 AM [facility] to other viral TO OTHER VIRAL EDT Med[facility] , ) communicable COMMUNICABLE diseases DISEASES R07.9 Chest pain, CHEST PAIN, Problem 09/30/2019 [facility] (St unspecified UNSPECIFIED 12:00:00 AM [facility], ) R07.9 Chest pain, CHEST PAIN, Problem 09/30/2019 [facility] (St unspecified UNSPECIFIED 12:00:00 AM [facility], ) R07.9 Chest pain, CHEST PAIN, Problem 09/30/2019 [facility] (St unspecified UNSPECIFIED 12:00:00 AM [facility], ) R07.9 Chest pain, CHEST PAIN, Problem 09/30/2019 [facility] (St unspecified UNSPECIFIED 12:00:00 AM [facility], ) R07.9 Chest pain, CHEST PAIN, Problem 09/30/2019 [facility] (St unspecified UNSPECIFIED 12:00:00 AM [facility], ) Surgeries/Procedures Procedure Description Date Indications Data Source(s) Documentation of current 07/11/2020 [facility] ([facility] medications (procedure) 12:00:00 AM EDT [facility], ) OFFICE OUTPATIENT VISIT 07/11/2020 [facility] ([facility] 25 MINUTES 12:00:00 AM EDT Medical, ) PHYSICIAN TELEPHONE 06/14/2020 [facility] ( [facility] EVALUATION 11-20 MIN 12:00:00 AM EDT [facility], ) PHYSICIAN TELEPHONE 06/14/2020 [facility] ( [facility] EVALUATION 11-20 MIN 12:00:00 AM EDT [facility], ) OFFICE OUTPATIENT VISIT 06/14/2020 [facility] EN ([facility] 15 MINUTES 12:00:00 AM EDT Medical, ) OFFICE OUTPATIENT VISIT 04/27/2020 [facility] ([facility] 15 MINUTES 12:00:00 AM EDT Medical, ) Documentation of current 04/27/2020 [facility] ([facility] (procedure) 12:00:00 AM EDT [facility]) Documentation of current 04/27/2020 [facility] ([facility] medications (procedure) 12:00:00 AM EDT [facility]) Documentation of current 04/27/2020 [facility] ([facility] medications (procedure) 12:00:00 AM EDT [facility]) OFFICE OUTPATIENT VISIT 04/27/2020 [facility] ([facility] 15 MINUTES 12:00:00 AM EDT [facility], PC) Documentation of current 04/27/2020 [facility] ([facility] medications (procedure) 12:00:00 AM EDT [facility]) Documentation of current 04/27/2020 [facility] ([facility] medications (procedure) 12:00:00 AM EDT [facility]) Documentation of current 04/27/2020 [facility] ([facility] medications (procedure) 12:00:00 AM EDT [facility]) OFFICE OUTPATIENT VISIT 04/27/2020 [facility] ([facility] 15 MINUTES 12:00:00 AM [facility], PC) Documentation of current 04/27/2020 [facility] ([facility] medications (procedure) 12:00:00 AM EDT [facility]) OFFICE OUTPATIENT VISIT 04/27/2020 [facility] EN ([facility] 15 MINUTES 12:00:00 AM ED [facility], PC) Documentation of current 04/27/2020 [facility] ([facility] medications (procedure) 12:00:00 AM EDT [facility]) Documentation of current 04/27/2020 [facility] ([facility] medications (procedure) 12:00:00 AM EDT [facility]) Documentation of current 04/27/2020 [facility] ([facility] medications (procedure) 12:00:00 AM EDT [facility]) Documentation of current 04/17/2020 [facility] ([facility] (procedure) 12:00:00 AM EDT [facility]) Documentation of current 04/17/2020 [facility] ([facility] medications (procedure) 12:00:00 AM EDT [facility]) Documentation of current 04/17/2020 [facility] ([facility] medications (procedure) 12:00:00 AM EDT [facility], ) OFFICE OUTPATIENT VISIT 04/17/2020 [facility] VENOUS BLOOD 04/17/2020 [facility] EN ([facility] VENIPUNCTURE 12:00:00 AM [facility], ) Documentation of current 04/17/2020 [facility] ([facility] medications (procedure) 12:00:00 AM EDT [facility], ) Documentation of current 04/17/2020 [facility] ([facility] medications (procedure) 12:00:00 AM EDT [facility], ) Documentation of current 04/17/2020 [facility] ([facility] medications (procedure) 12:00:00 AM EDT [facility], ) OFFICE OUTPATIENT VISIT 04/17/2020 [facility] ([facility] 15 MINUTES 12:00:00 AM [facility], ) COLLECTION VENOUS BLOOD 04/17/2020 [facility] EN ([facility] VENIPUNCTURE 12:00:00 AM [facility], ) Documentation of current 04/17/2020 [facility] ([facility] medications (procedure) 12:00:00 AM EDT [facility], ) Documentation of current 04/17/2020 [facility] ([facility] medications (procedure) 12:00:00 AM EDT [facility], ) Documentation of current 04/17/2020 [facility] ([facility] medications (procedure) 12:00:00 AM EDT [facility], ) OFFICE OUTPATIENT VISIT 04/17/2020 [facility] ([facility] 15 MINUTES 12:00:00 AM [facility], ) COLLECTION VENOUS BLOOD 04/17/2020 [facility] EN ([facility] VENIPUNCTURE 12:00:00 AM [facility], ) Documentation of current 04/17/2020 [facility] ([facility] medications (procedure) 12:00:00 AM EDT [facility], ) OFFICE OUTPATIENT VISIT 04/17/2020 [facility] EN ([facility] 15 MINUTES 12:00:00 AM [facility], ) Documentation of current 04/17/2020 [facility] ([facility] medications (procedure) 12:00:00 AM EDT [facility], ) Documentation of current 04/17/2020 [facility] ([facility] medications (procedure) 12:00:00 AM EDT [facility], ) Documentation of current 04/17/2020 [facility] ([facility] medications (procedure) 12:00:00 AM EDT [facility], ) OFFICE OUTPATIENT VISIT 04/17/2020 [facility]LECTION VENOUS BLOOD 04/17/2020 [facility] COLLECTION VENOUS BLOOD 04/17/2020 [facility] Documentation of current 03/22/2020 [facility] ([facility] medications (procedure) 12:00:00 AM EDT [facility], ) PHYSICIAN TELEPHONE 03/22/2020 [facility] ( [facility] EVALUATION 5-10 MIN 12:00:00 AM EDT [facility], ) Documentation of current 03/22/2020 [facility] ([facility] medications (procedure) 12:00:00 AM EDT [facility], ) PHYSICIAN TELEPHONE 03/22/2020 [facility] ( [facility] EVALUATION 5-10 MIN 12:00:00 AM EDT Medic id, ) Documentation of current 03/22/2020 [facility] ([facility] medications (procedure) 12:00:00 AM EDT [facility], ) PHYSICIAN TELEPHONE 03/22/2020 [facility] ( [facility] EVALUATION 5-10 MIN 12:00:00 AM EDT Medic id, ) Documentation of current 03/22/2020 [facility] ([facility] medications (procedure) 12:00:00 AM EDT [facility], ) PHYSICIAN TELEPHONE 03/22/2020 [facility] ( [facility] EVALUATION 5-10 MIN 12:00:00 AM EDT [facility] al, PC) Documentation of current 03/22/2020 [facility] ([facility] medications (procedure) 12:00:00 AM EDT [facility], ) PHYSICIAN TELEPHONE 03/22/2020 [facility] ( [facility] EVALUATION 5-10 MIN 12:00:00 AM EDT Medic id, ) Documentation of current 09/30/2019 [facility] ([facility] medications (procedure) 12:00:00 AM EST M edical, ) OFFICE OUTPATIENT VISIT 09/30/2019 [facility] EN ([facility] 25 MINUTES 12:00:00 AM EST Medical, PC) ECG ROUTINE ECG W/LEAST 09/30/2019 [facility] EN ([facility] 12 LDS W/I&R 12:00:00 AM EST Medical, ) COLLECTION VENOUS BLOOD 09/30/2019 [facility] EN ([facility] VENIPUNCTURE 12:00:00 AM EST Medical, ) Documentation of current 09/30/2019 [facility] ([facility] medications (procedure) 12:00:00 AM EST edical, ) OFFICE OUTPATIENT VISIT 09/30/2019 [facility] EN ([facility] 25 MINUTES 12:00:00 AM EST Medical, PC) ECG ROUTINE ECG W/LEAST 09/30/2019 [facility] EN ([facility] 12 LDS W/I&R 12:00:00 AM EST Medical, ) COLLECTION VENOUS BLOOD 09/30/2019 [facility] EN ([facility] VENIPUNCTURE 12:00:00 AM EST Medical, ) Documentation of current 09/30/2019 [facility] OUTPATIENT VISIT 09/30/2019 [facility] ([facility] 25 MINUTES 12:00:00 AM EST Medical, PC) ECG ROUTINE ECG W/LEAST 09/30/2019 [facility] EN ([facility] 12 LDS W/I&R 12:00:00 AM EST Medical, ) COLLECTION VENOUS BLOOD 09/30/2019 [facility] EN ([facility] VENIPUNCTURE 12:00:00 AM EST Medical, ) Documentation of current 09/30/2019 [facility]procedure) [facility]00[facility] OFFICE OUTPATIENT VISIT 09/30/2019 [facility] EN ([facility] 25 MINUTES 12:00:00 AM EST Medical, PC) ECG ROUTINE ECG W/LEAST 09/30/2019 [facility] EN ([facility] 12 LDS W/I&R 12:00:00 AM EST Medical, ) COLLECTION VENOUS BLOOD 09/30/2019 [facility] EN ([facility] VENIPUNCTURE 12:00:00 AM EST Medical, ) Documentation of current 09/30/2019 [facility] ([facility]procedure) [facility] OFFICE OUTPATIENT VISIT 09/30/2019 [facility] EN ([facility] 25 MINUTES 12:00:00 AM [facility], ) ECG ROUTINE ECG W/LEAST 09/30/2019 [facility] EN ([facility] 12 LDS W/I&R 12:00:00 AM [facility], ) COLLECTION VENOUS BLOOD 09/30/2019 MED[facility] EN ([facility] VENIPUNCTURE 12:00:00 AM [facility], ) Results ID Date Data Source [id number] 07/23/2020 10:20:00 AM EDT [facility] Name Value Range Interpretation Description Data Sup porting Code Source(s) Document(s ) SARS [facility] coronavirus 2 RNA This lab was ordered by [facility] and reported by [facility]. ID Date Data Source [id number] 07/02/2020 11:10:00 AM EDT [facility] Name Value Range Interpretation Description Data Sup porting Code Source(s) Document(s ) SARS [facility] coronavirus 2 RNA This lab was ordered by [facility] and reported by [facility]. ID Date Data Source [id number] 06/25/2020 09:55:00 AM EDT [facility] Name Value Range Interpretation Description Data Sup porting Code Source(s) Document(s ) SARS [facility] coronavirus 2 RNA This lab was ordered by [facility] and reported by [facility]. ID Date Data Source [id number] 05/21/2020 10:30:00 AM EDT [facility] Name Value Range Interpretation Description Data Sup porting Code Source(s) Document(s ) SARS [facility] coronavirus 2 RNA This lab was ordered by [facility] and reported by [facility]. ID Date Data Source [id number] 04/17/2020 12:00:00 AM EDT [facility] ([facility], ) Name Value Range Interpretation Description Data Sup porting Code Source(s) Document(s ) Triglyceride 127 mg/dL Normal (applies [facility] (St [Mass/volume] to non-numeric [facility] in Serum or results) Medical, ) Plasma HDL Cholesterol 50 mg/dL Normal (applies [facility] ( St to non-numeric [facility] results) [facility], PC) LDL Cholesterol 97 mg/dL Normal (applies [facility] ( St Calc to non-numeric [facility] results) [facility], PC) VLDL 25 mg/dL Normal (applies [facility] (St Cholesterol Ja to non-numeric [facility] results) Medical, PC) SARS-CoV-2 Negative Normal (applies [facility] (St Antibody, IgG to non-numeric [facility] results) Medical, ) ID Date Data Source [id number] 04/17/2020 12:00:00 AM EDT [facility] (St [facility], ) Name Value Range Interpretation Code Description Data Armida rce(s) Supporting Document(s ) SARS-CoV- Negative Normal (applies to [facility] (St 2 non-numeric [facility] Antibody, results) Medical, ) IgM ID Date Data Source [id number] 04/17/2020 12:00:00 AM EDT [facility] ([facility], ) Name Value Range Interpretation Description Data Sup porting Code Source(s) Document(s ) Protein 6.3 g/dL Normal (applies [facility] (St [Mass/volume] in to non-numeric [facility] Serum or Plasma results) Medical, ) Microalbumin 4.2 g/dL Normal (applies [facility] (St [Mass/time] in to non-numeric [facility] Urine collected for results) [facility], unspecified PC) duration Bilirubin.total 0.3 Normal (applies [facility] ( St [Mass/volume] in mg/dL to non-numeric [facility] Serum or Plasma results) Medical, PC) Bilirubin.conjugate 0.08 Normal (applies MEDG EN (St d [Mass/volume] in mg/dL to non-numeric [facility] Serum or Plasma results) Medical, PC) Alkaline 82 IU/L Normal (applies [facility] (St phosphatase to non-numeric [facility] [Enzymatic results) Medical, activity/volume] in ) Serum, Plasma or Blood Aspartate 21 IU/L Normal (applies [facility] (St aminotransferase to non-numeric [facility] [Enzymatic results) Medical, activity/volume] in ) Serum or Plasma Alanine 17 IU/L Normal (applies [facility] (St aminotransferase to non-numeric [facility] [Enzymatic results) Medical, activity/volume] in ) Serum or Plasma ID Date Data Source [id number] 04/17/2020 12:00:00 AM EDT [facility] ([facility], ) Name Value Range Interpretation Description Data Sup porting Code Source(s) Document(s ) Cholesterol 146 Normal (applies [facility] (St [Mass/volume] in mg/dL to non-numeric [facility] Serum or Plasma results) [facility], ) Triglyceride 86 mg/dL Normal (applies [facility] (St [Mass/volume] in to non-numeric [facility] Serum or Plasma results) [facility], ) VLDL Cholesterol 17 mg/dL Normal (applies MED[facility] (St Ja to non-numeric [facility] results) [facility], ) HDL Cholesterol 46 mg/dL Normal (applies MEDGEN ( St to non-numeric [facility] results) [facility], ) LDL Cholesterol 83 mg/dL Normal (applies MEDGEN ( St Calc to non-numeric [facility] results) [facility], ) ID Date Data Source [id number] 04/17/2020 12:00:00 AM EDT [facility] ([facility], ) Name Value Range Interpretation Code Description Data Armida rce(s) Supporting Document(s ) SARS-CoV- Negative Normal (applies to MED[facility] (St 2 non-numeric [facility] Antibody, results) [facility], ) IgG ID Date Data Source [id number] 04/17/2020 12:00:00 AM EDT [facility] ([facility]) Name Value Range Interpretation Code Description Data Armida rce(s) Supporting Document(s ) SARS-CoV- Negative Normal (applies to MED[facility] (St 2 non-numeric [facility] Antibody, results) [facility], ) IgM ID Date Data Source [id number] 04/17/2020 12:00:00 AM EDT [facility] ([facility]) Name Value Range Interpretation Description Data Sup porting Code Source(s) Document(s ) Protein 6.3 g/dL Normal (applies MED[facility] (St [Mass/volume] in to non-numeric [facility] Serum or Plasma results) [facility], ) Bilirubin.total 0.3 Normal (applies MED[facility] ( St [Mass/volume] in mg/dL to non-numeric [facility] Serum or Plasma results) [facility], ) Microalbumin 4.2 g/dL Normal (applies [facility] (St [Mass/time] in to non-numeric [facility] Urine collected for results) Medical, unspecified PC) duration Bilirubin.conjugate 0.08 Normal (applies MEDG EN (St d [Mass/volume] in mg/dL to non-numeric [facility] Serum or Plasma results) Medical, ) Aspartate 21 IU/L Normal (applies MED[facility] (St aminotransferase to non-numeric [facility] [Enzymatic results) Medical, activity/volume] in ) Serum or Plasma Alkaline 82 IU/L Normal (applies [facility] (St phosphatase to non-numeric [facility] [Enzymatic results) Medical, activity/volume] in ) Serum, Plasma or Blood Alanine 17 IU/L Normal (applies MED[facility] (St aminotransferase to non-numeric [facility] [Enzymatic results) Medical, activity/volume] in ) Serum or Plasma ID Date Data Source [id number] 04/17/2020 12:00:00 AM EDT [facility] ([facility], ) Name Value Range Interpretation Description Data Sup porting Code Source(s) Document(s ) Triglyceride 86 mg/dL Normal (applies [facility] (St [Mass/volume] in to non-numeric [facility] Serum or Plasma results) Medical, ) Cholesterol 146 Normal (applies [facility] (St [Mass/volume] in mg/dL to non-numeric [facility] Serum or Plasma results) Medical, ) HDL Cholesterol 46 mg/dL Normal (applies MEDGEN ( St to non-numeric [facility] results) Medical, ) LDL Cholesterol 83 mg/dL Normal (applies MEDGEN ( St Calc to non-numeric [facility] results) Medical, ) VLDL Cholesterol 17 mg/dL Normal (applies [facility] (St Ja to non-numeric [facility] results) Medical, ) ID Date Data Source [id number] 04/17/2020 12:00:00 AM EDT [facility] ([facility], ) Name Value Range Interpretation Code Description Data Armida rce(s) Supporting Document(s ) SARS-CoV- Negative Normal (applies to MED[facility] (St 2 non-numeric [facility] Antibody, results) [facility], ) IgG ID Date Data Source [id number] 04/17/2020 12:00:00 AM EDT [facility] ([facility], ) Name Value Range Interpretation Code Description Data Armida rce(s) Supporting Document(s ) SARS-CoV- Negative Normal (applies to [facility] (St 2 non-numeric [facility] Antibody, results) Medical, ) IgM ID Date Data Source [id number] 04/17/2020 12:00:00 AM EDT [facility] ([facility]) Name Value Range Interpretation Description Data Sup porting Code Source(s) Document(s ) Protein 6.3 g/dL Normal (applies MEDGEN (St [Mass/volume] in to non-numeric [facility] Serum or Plasma results) Medical, ) Bilirubin.total 0.3 Normal (applies MEDGEN ( St [Mass/volume] in mg/dL to non-numeric [facility] Serum or Plasma results) Medical, ) Microalbumin 4.2 g/dL Normal (applies MEDGEN (St [Mass/time] in to non-numeric [facility] Urine collected for results) [facility], unspecified ) duration Alkaline 82 IU/L Normal (applies MEDGEN (St phosphatase to non-numeric [facility] [Enzymatic results) Medical, activity/volume] in ) Serum, Plasma or Blood Bilirubin.conjugate 0.08 Normal (applies MEDG EN (St d [Mass/volume] in mg/dL to non-numeric [facility] Serum or Plasma results) Medical, ) Aspartate 21 IU/L Normal (applies MEDGEN (St aminotransferase to non-numeric [facility] [Enzymatic results) Medical, activity/volume] in ) Serum or Plasma Alanine 17 IU/L Normal (applies MEDGEN (St aminotransferase to non-numeric [facility] [Enzymatic results) Medical, activity/volume] in ) Serum or Plasma ID Date Data Source [id number] 04/17/2020 12:00:00 AM EDT [facility] ([facility], ) Name Value Range Interpretation Description Data Sup porting Code Source(s) Document(s ) Triglyceride 86 mg/dL Normal (applies MEDGEN (St [Mass/volume] in to non-numeric [facility] Serum or Plasma results) Medical, ) Cholesterol 146 Normal (applies MED[facility] (St [Mass/volume] in mg/dL to non-numeric [facility] Serum or Plasma results) Medical, ) HDL Cholesterol 46 mg/dL Normal (applies MEDGEN ( St to non-numeric [facility] results) Medical, PC) VLDL Cholesterol 17 mg/dL Normal (applies MEDGEN (St Ja to non-numeric [facility] results) Medical, ) LDL Cholesterol 83 mg/dL Normal (applies MEDGEN ( St Calc to non-numeric [facility] results) Medical, PC) ID Date Data Source [id number] 04/17/2020 12:00:00 AM EDT [facility] ([facility], ) Name Value Range Interpretation Code Description Data Armida rce(s) Supporting Document(s ) SARS-CoV- Negative Normal (applies to MEDGEN (St 2 non-numeric [facility] Antibody, results) Medical, ) IgG ID Date Data Source [id number] 04/17/2020 12:00:00 AM EDT MEDGEN ([facility], ) Name Value Range Interpretation Code Description Data Armida rce(s) Supporting Document(s ) SARS-CoV- Negative Normal (applies to MEDGEN (St 2 non-numeric [employer] Antibody, results) Medical, ) IgM ID Date Data Source [id number] 04/17/2020 12:00:00 AM EDT MEDGEN ([facility], ) Name Value Range Interpretation Description Data Sup porting Code Source(s) Document(s ) Protein 6.3 g/dL Normal (applies MEDGEN (St [Mass/volume] in to non-numeric [employer] Serum or Plasma results) Medical, ) Microalbumin 4.2 g/dL Normal (applies MEDGEN (St [...] in PC) Serum, Plasma or Blood Alanine 17 IU/L Normal (applies MEDGEN (St aminotransferase to non-numeric [employer] [Enzymatic results) Medical, activity/volume] in PC) Serum or Plasma Aspartate 21 IU/L Normal (applies MEDGEN (St aminotransferase to non-numeric [employer] [Enzymatic results) Medical, activity/volume] in PC) Serum or Plasma ID Date Data Source [id number] 04/17/2020 12:00:00 AM EDT MEDGEN ([facility], ) Name Value Range Interpretation Description Data Sup porting Code Source(s) Document(s ) Triglyceride 86 mg/dL Normal (applies MEDGEN (St [Mass/volume] in to non-numeric [employer] Serum or Plasma results) Medical, ) Cholesterol 146 Normal (applies MEDGEN (St [Mass/volume] in mg/dL to non-numeric [employer] Serum or Plasma results) Medical, ) HDL Cholesterol 46 mg/dL Normal (applies MEDGEN ( St to non-numeric [employer] results) Medical, ) VLDL Cholesterol 17 mg/dL Normal (applies MEDGEN (St Ja to non-numeric [employer] results) Medical, ) LDL Cholesterol 83 mg/dL Normal (applies MEDGEN ( St Calc to non-numeric [employer] results) [facility], ) ID Date Data Source [id number] 09/30/2019 12:00:00 AM EST MEDGEN ([facility], ) Name Value Range Interpretation Code Description Data Armida rce(s) Supporting Document(s ) TSH 2.110 Normal (applies to MEDGEN (St uIU/mL non-numeric results) [facility], ) ID Date Data Source [id number] 09/30/2019 12:00:00 AM EST MEDGEN ([facility], ) Name Value Range Interpretation Description Data [...] Urine collected for results) [facility], unspecified ) duration Bilirubin.conjugate 0.09 Normal (applies MEDG EN (St d [Mass/volume] in mg/dL to non-numeric [employer] Serum or Plasma results) Medical, PC) Alkaline 80 IU/L Normal (applies MEDGEN (St phosphatase to non-numeric [employer] [Enzymatic results) Medical, activity/volume] in ) Serum, Plasma or Blood Aspartate 21 IU/L Normal (applies MEDGEN (St aminotransferase to non-numeric [employer] [Enzymatic results) Medical, activity/volume] in ) Serum or Plasma Alanine 14 IU/L Normal (applies MEDGEN (St aminotransferase to non-numeric [employer] [Enzymatic results) Medical, activity/volume] in ) Serum or Plasma ID Date Data Source [id number] 09/30/2019 12:00:00 AM EST MEDGEN ([facility], ) Name Value Range Interpretation Description Data Sup porting Code Source(s) Document(s ) Triglyceride 127 Normal (applies MEDGEN (St [Mass/volume] in mg/dL to non-numeric [employer] Serum or Plasma results) [facility], ) Cholesterol 172 Normal (applies MEDGEN (St [...] [facility], ) ID Date Data Source [id number] 09/30/2019 12:00:00 AM EST MEDGEN ([facility], ) Name Value Range Interpretation Code Description Data Armida rce(s) Supporting Document(s ) TSH 2.110 Normal (applies to MEDGEN (St uIU/mL non-numeric results) [employer] [facility], ) ID Date Data Source [id number] 09/30/2019 12:00:00 AM EST MEDGEN ([facility], ) Name Value Range Interpretation Description Data Sup porting Code Source(s) Document(s ) Protein 7.0 g/dL Normal (applies MEDGEN (St [Mass/volume] in to non-numeric [employer] Serum or Plasma results) Medical, ) Microalbumin 4.4 g/dL Normal (applies MEDGEN (St [Mass/time] in to non-numeric [employer] Urine collected for results) [facility], unspecified ) duration Bilirubin.total 0.3 Normal (applies MEDGEN ( St [Mass/volume] in mg/dL to non-numeric [employer] Serum or Plasma results) Medical, ) Alkaline 80 IU/L Normal (applies MEDGEN (St phosphatase to non-numeric [employer] [Enzymatic results) Medical, activity/volume] in ) Serum, Plasma or Blood Bilirubin.conjugate 0.09 Normal (applies MEDG EN (St d [Mass/volume] in mg/dL to non-numeric [employer] Serum or Plasma results) Medical, ) Aspartate 21 IU/L Normal (applies MEDGEN (St aminotransferase to non-numeric [employer] [Enzymatic results) Medical, activity/volume] in ) Serum or Plasma Alanine 14 IU/L Normal (applies MEDGEN (St aminotransferase to non-numeric [employer] [Enzymatic results) Medical, activity/volume] in ) Serum or Plasma ID Date Data Source [id number] 09/30/2019 12:00:00 AM EST MEDGEN ( [facility], ) Name Value Range Interpretation Code Description Data Armida rce(s) Supporting Document(s ) TSH 2.110 Normal (applies to MEDGEN (St uIU/mL non-numeric results) [employer] [facility], ) ID Date Data Source [id number] 09/30/2019 12:00:00 AM EST [facility]GEN ([facility], ) Name Value Range Interpretation Description Data Sup porting Code Source(s) Document(s ) Protein 7.0 g/dL Normal (applies MEDGEN (St [Mass/volume] in to non-numeric [employer] Serum or Plasma results) Medical, ) Microalbumin 4.4 g/dL Normal (applies MEDGEN (St [Mass/time] in to non-numeric [employer] Urine collected for results) [facility], unspecified ) duration Bilirubin.total 0.3 Normal (applies MEDGEN ( [...] activity/volume] in ) Serum or Plasma Alanine 14 IU/L Normal (applies MEDGEN (St aminotransferase to non-numeric [employer] [Enzymatic results) Medical, activity/volume] in ) Serum or Plasma ID Date Data Source [id number] 09/30/2019 12:00:00 AM EST MEDGEN ([facility]) Name Value Range Interpretation Description Data Sup porting Code Source(s) Document(s ) Cholesterol 172 Normal (applies MEDGEN (St [Mass/volume] in mg/dL to non-numeric [employer] Serum or Plasma results) [facility]) Triglyceride 127 Normal (applies MEDGEN (St [Mass/volume] in mg/dL to non-numeric [employer] Serum or Plasma results) [facility]) HDL Cholesterol 50 mg/dL Normal (applies MEDGEN ( St to non-numeric [employer] results) [facility]) LDL Cholesterol 97 mg/dL Normal (applies MEDGEN ( St Calc to non-numeric [employer] results) [facility]) VLDL Cholesterol 25 mg/dL Normal (applies MEDGEN (St Ja to non-numeric [employer] results) [facility]) ID Date Data Source [id number] 09/30/2019 12:00:00 AM EST MEDGEN ([facility]) Name Value Range Interpretation Code Description Data Armida rce(s) Supporting Document(s ) TSH 2.110 Normal (applies to MEDGEN (St uIU/mL non-numeric results) [facility]) ID Date Data Source [id number] 09/30/2019 12:00:00 AM EST MEDGEN ([facility]) Name Value Range Interpretation Description Data Sup porting Code Source(s) Document(s ) Protein 7.0 g/dL Normal (applies MEDGEN (St [Mass/volume] in to non-numeric [employer] Serum or Plasma results) [facility], ) Bilirubin.total 0.3 Normal (applies MEDGEN ( St [Mass/volume] in mg/dL to non-numeric [employer] Serum or Plasma results) [facility], ) Microalbumin 4.4 g/dL Normal (applies MEDGEN (St [Mass/time] in to non-numeric [employer] Urine collected for results) Medical, unspecified PC) duration Bilirubin.conjugate 0.09 Normal (applies [...] activity/volume] in ) Serum or Plasma Alanine 14 IU/L Normal (applies MEDGEN (St aminotransferase to non-numeric [employer] [Enzymatic results) Medical, activity/volume] in ) Serum or Plasma ID Date Data Source [id number] 09/30/2019 12:00:00 AM EST MEDGEN ([facility], ) Name Value Range Interpretation [...] results) Medical, ) ID Date Data Source [id number] 09/30/2019 12:00:00 AM EST MEDGEN ([facility], ) Name Value Range Interpretation Code Description Data Armida rce(s) Supporting Document(s ) TSH 2.110 Normal (applies to MEDGEN (St uIU/mL non-numeric results) [facility], ) ID Date Data Source [id number] 09/30/2019 12:00:00 AM EST MEDGEN ([facility], ) Name Value Range Interpretation Description Data Sup porting Code Source(s) Document(s ) Protein 7.0 g/dL Normal (applies MEDGEN (St [Mass/volume] in to non-numeric [employer] Serum or Plasma results) [facility], ) Microalbumin 4.4 g/dL Normal (applies MEDGEN (St [Mass/time] in to non-numeric [employer] Urine collected for results) [facility], unspecified ) duration Bilirubin.total 0.3 Normal (applies MEDGEN ( St [Mass/volume] in mg/dL to non-numeric [employer] Serum or Plasma results) Medical, ) Bilirubin.conjugate 0.09 Normal (applies MEDG EN (St d [Mass/volume] in mg/dL to non-numeric [employer] Serum or Plasma results) Medical, ) Aspartate 21 IU/L Normal (applies MEDGEN (St aminotransferase to non-numeric [employer] [Enzymatic results) Medical, activity/volume] in ) Serum or Plasma Alkaline 80 IU/L Normal (applies MEDGEN (St phosphatase to non-numeric [employer] [Enzymatic results) Medical, activity/volume] in ) Serum, Plasma or Blood Alanine 14 IU/L Normal (applies MEDGEN (St aminotransferase to non-numeric [employer] [Enzymatic results) Medical, activity/volume] in ) Serum or Plasma ID Date Data Source [id number] 09/30/2019 12:00:00 AM EST MEDGEN ([facility], ) [...] Value Status Description Data Source(s ) Smoking 07/12/2020 no smoking drinks completed no smoking drinks MEDGEN (St 12:00:00 AM EDT occasionally occasionally [employer] [facility], ) Smoking 07/12/2020 Unknown if ever completed Unknown if ever MEDG EN (St 12:00:00 AM EDT smoked smoked [facility], PC) Smoking 07/11/2020 no smoking drinks completed no smoking drinks MEDGEN (St 12:00:00 AM EDT occasionally occasionally [facility], [facility]) Smoking 07/11/2020 Unknown if ever completed Unknown if ever MEDG EN (St 12:00:00 AM EDT smoked smoked [employer], [facility]) Smoking 06/14/2020 no smoking drinks completed no smoking drinks MEDGEN (St 12:00:00 AM EDT occasionally occasionally [facility]) Smoking 06/14/2020 Unknown if ever completed Unknown if ever MEDG EN (St 12:00:00 AM EDT smoked smoked [employer] [facility], PC) Smoking 05/08/2020 no smoking drinks completed no smoking drinks MEDGEN (St 12:00:00 AM EDT occasionally occasionally [facility]) Smoking 05/08/2020 Unknown if ever completed Unknown if ever MEDG EN (St 12:00:00 AM EDT smoked smoked [employer] [facility], PC) Smoking 04/17/2020 no smoking drinks completed no smoking drinks MEDGEN (St 12:00:00 AM EDT occasionally occasionally [facility], [facility]) Smoking 04/17/2020 Unknown if ever completed Unknown if ever MEDG EN (St 12:00:00 AM EDT smoked smoked [employer] d[facility], PC) Vital Signs ID Date Data Source [id number] Name Value Range Interpretation Code Description Data Source(s) Heart rate 77 /min 77 /min MEDGEN ([facility]) Inhaled oxygen 96 % 96 % MEDGEN ( concentration [facility], ) Body mass index 30.4 kg/m2 30.4 kg/m2 MEDGEN (S t (BMI) [Ratio] [facility]) Diastolic blood 74 mm[Hg] 74 mm[Hg] MEDGEN (S t pressure [facility]) Systolic blood 122 mm[Hg] 122 mm[Hg] MEDGEN (St pressure [facility]) Body weight 177 lb 177 lb MEDGEN ([facility]) Body height 64 in 64 in MEDGEN ([facility]) Heart rate 77 /min 77 /min MEDGEN ([facility]) Inhaled oxygen 96 % 96 % MEDGEN ([facility], ) Body mass index 30.4 kg/m2 30.4 kg/m2 MEDGEN (S t (BMI) [Ratio] [facility], ) Diastolic blood 74 mm[Hg] 74 mm[Hg] MEDGEN (S t pressure [facility]) Systolic blood 122 mm[Hg] 122 mm[Hg] MEDGEN ([facility]) Body weight 177 lb 177 lb MEDGEN ([facility]) Body height 64 in 64 in MEDGEN ([facility]) Heart rate 77 /min 77 /min MEDGEN ([facility]) Inhaled oxygen 96 % 96 % MEDGEN ([facility], ) Body mass index 30.4 kg/m2 30.4 kg/m2 MEDGEN (S t (BMI) [Ratio] [facility], ) Diastolic blood 74 mm[Hg] 74 mm[Hg] MEDGEN (S t pressure [facility]) Systolic blood 122 mm[Hg] 122 mm[Hg] MEDGEN ([facility]) Body weight 177 lb 177 lb MEDGEN ([facility]) Body height 64 in 64 in MEDGEN ([facility]) Heart rate 77 /min 77 /min MEDGEN ([facility]) Inhaled oxygen 96 % 96 % MEDGEN ([facility], ) Body mass index 30.4 kg/m2 30.4 kg/m2 MEDGEN (S t (BMI) [Ratio] [facility], ) Diastolic blood 74 mm[Hg] 74 mm[Hg] MEDGEN (S t pressure [facility]) Systolic blood 122 mm[Hg] 122 mm[Hg] MEDGEN ([facility]) Body weight 177 lb 177 lb MEDGEN ([facility]) Body height 64 in 64 in MEDGEN ([facility]) Heart rate 77 /min 77 /min MEDGEN ([facility]) Inhaled oxygen 96 % 96 % MEDGEN ([facility]) Body mass index 30.4 kg/m2 30.4 kg/m2 MEDGEN (S t (BMI) [Ratio] [facility], ) Diastolic blood 74 mm[Hg] 74 mm[Hg] MEDGEN (S t pressure [facility]) Systolic blood 122 mm[Hg] 122 mm[Hg] MEDGEN ([facility]) Body weight 177 lb 177 lb MEDGEN ([facility]) Body height 64 in 64 in MEDGEN ([facility]) Body mass index 30 kg/m2 30 kg/m2 MEDGEN (S t (BMI) [Ratio] [facility], ) Diastolic blood 72 mm[Hg] 72 mm[Hg] MEDGEN (S t pressure [facility]) Systolic blood 130 mm[Hg] 130 mm[Hg] MEDGEN ([facility]) Body weight 175 lb 175 lb MEDGEN ([facility]) Body height 64 in 64 in MEDGEN ([facility]) Body mass index 30 kg/m2 30 kg/m2 MEDGEN (S t (BMI) [Ratio] [facility], ) Diastolic blood 72 mm[Hg] 72 mm[Hg] MEDGEN (S t pressure [facility]) Systolic blood 130 mm[Hg] 130 mm[Hg] MEDGEN ([facility]) Body weight 175 lb 175 lb MEDGEN ([facility]) Body height 64 in 64 in MEDGEN ([facility]) Body mass index 30 kg/m2 30 kg/m2 MEDGEN (S t (BMI) [Ratio] [facility], ) Diastolic blood 72 mm[Hg] 72 mm[Hg] MEDGEN (S t pressure [facility]) Systolic blood 130 mm[Hg] 130 mm[Hg] MEDGEN ([facility]) Body weight 175 lb 175 lb MEDGEN ([facility]) Body height 64 in 64 in MEDGEN ([facility]) Body mass index 30 kg/m2 30 kg/m2 MEDGEN (S t (BMI) [Ratio] [facility], ) Diastolic blood 72 mm[Hg] 72 mm[Hg] MEDGEN (S t pressure [facility]) Systolic blood 130 mm[Hg] 130 mm[Hg] [facility] ([facility]) Body weight 175 lb 175 lb [facility] ([facility]) Body height 64 in 64 in [facility] ([facility]) Body mass index 30 kg/m2 30 kg/m2 [facility] (S t (BMI) [Ratio] [facility]) Diastolic blood 72 mm[Hg] 72 mm[Hg] [facility] (S t pressure [facility]) Systolic blood 130 mm[Hg] 130 mm[Hg] [facility] ([facility]) Body weight 175 lb 175 lb [facility] ([facility]) Body height 64 in 64 in [facility] ([facility])
[2020-07-28] MEDS ORDERED: DEXAMETHASONE SOD PHOSPHATE 4 MG/1 ML VIAL ONE (12:00)
[2020-07-28] MEDS ORDERED: PROPOFOL 20 ML ONE (12:00)
[2020-07-28] MEDS ORDERED: MIDAZOLAM HCL 2 MG/2 ML SINGLE DOSE VIAL ONE ×2 (12:00→12:25)
[2020-07-28] MEDS ORDERED: LIDOCAINE HCL/PF 2% SDV 5ML VIAL ONE ×2 (12:02→12:15)
[2020-07-28] MEDS ORDERED: DEXAMETHASONE SOD PHOSPHATE/PF 10 MG/ML SDV ONE (12:26)
[2020-07-28] MEDS ORDERED: LIDOCAINE HCL 1% PRESERVATIVE FREE - 30ML VIAL IJ ONE (12:34)
[2020-07-28] MEDS ORDERED: LIDOCAINE HCL/PF 2% SDV 5ML VIAL INF ONE (12:35)
[2020-07-28] MEDS ORDERED: IOHEXOL 180 MG/1 ML ML IJ ONE ×2 (12:35)
[2020-07-28] MEDS ORDERED: DEXAMETHASONE SOD PHOSPHATE 10 MG/1 ML VIAL IM ONE (12:36)
[2020-07-28] MEDS ORDERED: BUPIVACAINE HCL/PF 0.75% 10 ML VIAL NR ONE (12:36)
[2020-07-28 13:50] VITALS: TEMP 98
[2020-07-28 17:15] VITALS: BP 128/71; PULSE 62
--- NOTE | 2020-08-03 09:07 | PROC ---
Procedure Note Procedure: Pre procedure Diagnosis: Lumbar Spondylosis Post Procedure Diagnosis: same Anesthesia: MAC Procedure Performed: Right & Left L3 L4 L5 medial branch radiofrequency Ablation The patient was sterilely prepped and draped in the usual fashion while in the prone position. 1% Lidocaine was used to provide soft tissue anesthesia. Time out was performed. Under fluoroscopic guidance, 10mm active tip radiofrequency probes were successfully directed over the RIGHT L3, L4 and L5 dorsal rami at the intersection of the transverse processes and superior articular processes. Needle tip positions were confirmed with both sensory and motor stimulation, both of which resulted in appropriate responses in the lumbar region, and no reponse in the lower extremities. Lesions were performed at each site at a temperature of 90 degrees Celsius for duration of 90 seconds. Prior to each lesion, 1mL of a cocktail of 4mL of 2% lidocaine and 1mL Omnipaque 180 was injected at each site. Following each lesion, 0.5mL of solution containing 1mL dexamethasone and 2mL of .75% bupivacaine, was injected at each site. The same was repeated on the Left Side The patient tolerated the procedure well and there were no complications. The patient was taken to the post procedure recovery area in good condition. Vital signs remained stable before, during, and after the procedure. The patient was given oral and written follow-up instructions. The patient was given a follow up appointment with me in the near future. Rommel TORRES
== END 2020-07-28 15:00 | disposition home or self-care (01) ==
LOC: JASU-SURG 05:33
PROVIDERS: ATTEND Pain Medicine Pain Medicine
PROC: 3E0T3TZ Introduction of Destructive Agent into Peripheral Nerves and Plexi, Percutaneous Approach (ICD-10-PCS; principal; 2020-07-28 12:00)
DX: M47.816 Spondylosis without myelopathy or radiculopathy, lumbar region (principal); M54.5 Low back pain
CPT/HCPCS: 76000-TC-FY; J1100

== ENCOUNTER 2021-06-26 04:54 | Day surgery (SDC) | payer OTHER ==
[2021-06-26 10:54] VITALS: TEMP 97.8
[2021-06-26 11:46] VITALS: BP 131/66; PULSE 62
== END 2021-06-26 11:47 | disposition home or self-care (01) ==
LOC: JASU-ENDO 04:54
PROVIDERS: ATTEND Internal Medicine Gastroenterology
PROC: 0DBL8ZX Excision of Transverse Colon, Via Natural or Artificial Opening Endoscopic, Diagnostic (ICD-10-PCS; 2021-06-26)
PROC: 0DBN8ZX Excision of Sigmoid Colon, Via Natural or Artificial Opening Endoscopic, Diagnostic (ICD-10-PCS; principal; 2021-06-26 09:45)
DX: Z12.11 Encounter for screening for malignant neoplasm of colon (principal); D12.5 Benign neoplasm of sigmoid colon; D12.3 Benign neoplasm of transverse colon; K64.8 Other hemorrhoids; K63.89 Other specified diseases of intestine
CPT/HCPCS: 88305-TC

== ENCOUNTER 2024-05-12 05:06 | Day surgery (SDC) | payer OTHER ==
[2024-05-10 12:07] VITALS: BMI 27.8
[2024-05-12] MEDS: ceFAZolin SODIUM 1 GM VIAL IVPB ONE
[2024-05-12] MEDS ORDERED: LIDOCAINE HCL/PF 2% SDV 5ML VIAL ONE (10:28)
[2024-05-12] MEDS ORDERED: PROPOFOL 20 ML ONE (10:28)
[2024-05-12] MEDS ORDERED: MIDAZOLAM HCL 2 MG/2 ML SINGLE DOSE VIAL ONE (10:28)
[2024-05-12] MEDS ORDERED: ONDANSETRON 4 MG/2 ML VIAL ONE ×2 (11:06→12:04)
[2024-05-12] MEDS ORDERED: DEXAMETHASONE SOD PHOSPHATE 4 MG/1 ML VIAL ONE (11:06)
[2024-05-12] MEDS ORDERED: KETOROLAC TROMETHAMINE 30 MG/1 ML VIAL ONE (11:06)
[2024-05-12] MEDS ORDERED: SCOPOLAMINE HYDROBROMIDE 1 PATCH PATCH.TD72 ONE (11:11)
[2024-05-12] MEDS ORDERED: oxyCODONE HCL 5 MG TABLET PO PRN ×2 (11:55)
[2024-05-12] MEDS ORDERED: PROMETHAZINE HCL 25 MG/1 ML VIAL IVPB PRN (11:55)
[2024-05-12] MEDS: ONDANSETRON 4 MG/2 ML VIAL IVPUSH PRN (12:12)
[2024-05-12] MEDS ORDERED: ACETAMINOPHEN INJECTION 100 ML IVPB ONE (12:19)
[2024-05-12] MEDS: ACETAMINOPHEN 1000 MG/100 ML BAG IVPB ONE (12:22)
[2024-05-12] MEDS: LACTATED RINGERS SOLUTION 1,000 ML IV SCH (12:24)
[2024-05-12 12:50] VITALS: TEMP 97.1
[2024-05-12 14:40] VITALS: BP 145/71; PULSE 61; RESP 18
== END 2024-05-12 14:43 | disposition home or self-care (01) ==
LOC: JASU-SURG 05:06
PROVIDERS: ATTEND Obstetrics & Gynecology
PROC: 0UDB8ZX Extraction of Endometrium, Via Natural or Artificial Opening Endoscopic, Diagnostic (ICD-10-PCS; principal; 2024-05-12 11:00)
DX: N95.0 Postmenopausal bleeding (principal); N87.9 Dysplasia of cervix uteri, unspecified
CPT/HCPCS: 88305-TC; 88341-TC; 88342-TC; 94760; J0131

== ENCOUNTER 2024-08-07 11:04 | Emergency (ER) | payer OTHER ==
[2024-08-07 11:12] VITALS: BP 180/77; PULSE 80; RESP 16; TEMP 97.7; BMI 28.1
[2024-08-07] MEDS ORDERED: traMADol HCL 50 MG TABLET ONE (11:55)
[2024-08-07] MEDS: traMADol HCL 50 MG TABLET PO ONE (11:59)
[2024-08-07] MEDS ORDERED: KETOROLAC TROMETHAMINE 30 MG/1 ML VIAL ONE (14:00)
[2024-08-07] MEDS ORDERED: METHOCARBAMOL 500 MG TABLET ONE (14:01)
[2024-08-07] MEDS ORDERED: ACETAMINOPHEN 500 MG TABLET (FP) ONE (14:03)
[2024-08-07] MEDS: KETOROLAC TROMETHAMINE 30 MG/1 ML VIAL IM ONE (14:10)
[2024-08-07] MEDS: METHOCARBAMOL 500 MG TABLET PO ONE (14:10)
[2024-08-07] MEDS: ACETAMINOPHEN 500 MG TABLET (FP) PO ONE (14:11)
== END 2024-08-07 14:21 | disposition home or self-care (01) ==
LOC: JER 11:04
PROC: 3E0133Z Introduction of Anti-inflammatory into Subcutaneous Tissue, Percutaneous Approach (ICD-10-PCS; principal; 2024-08-07)
DX: M54.42 Lumbago with sciatica, left side (principal)
CPT/HCPCS: 73502-TC-LT-FY; 93971-TC; 99284-25

== ENCOUNTER 2024-09-23 04:26 | Day surgery (SDC) | payer OTHER ==
[2024-09-22 11:24] VITALS: BMI 27.3
[2024-09-23] MEDS ORDERED: TRIAMCINOLONE ACET 40MG/1ML VIAL ONE (07:37)
[2024-09-23] MEDS: LIDOCAINE HCL 1% PRESERVATIVE FREE - 30ML VIAL IJ ONE (13:44)
[2024-09-23] MEDS: BUPIVACAINE HCL/PF 0.5% (5MG/ML) 10 ML VIAL IJ ONE (13:44)
[2024-09-23] MEDS: IOHEXOL 180 MG/1 ML ML IJ ONE (13:45)
[2024-09-23] MEDS: TRIAMCINOLONE ACETONIDE 40 MG/ML 10 ML VIAL IJ ONE (13:46)
[2024-09-23 15:16] VITALS: BP 126/75; PULSE 72; RESP 18; TEMP 97.3
[2024-09-23] MEDS ORDERED: ACETAMINOPHEN 500 MG TABLET (FP) PO PRN (18:01)
== END 2024-09-23 14:27 | disposition home or self-care (01) ==
LOC: JASU-SURG 04:26
PROVIDERS: ATTEND Pain Medicine Pain Medicine
PROC: 3E0U3BZ Introduction of Anesthetic Agent into Joints, Percutaneous Approach (ICD-10-PCS; 2024-09-23)
PROC: 3E0U33Z Introduction of Anti-inflammatory into Joints, Percutaneous Approach (ICD-10-PCS; principal; 2024-09-23 12:15)
DX: M16.12 Unilateral primary osteoarthritis, left hip (principal)
CPT/HCPCS: 76000-TC-FY

== ENCOUNTER 2024-11-25 03:43 | Day surgery (SDC) | payer OTHER ==
[2024-11-19 15:08] VITALS: BMI 27.1
[2024-11-25] MEDS ORDERED: PROPOFOL 20 ML ONE ×2 (07:44→12:09)
[2024-11-25] MEDS ORDERED: MIDAZOLAM HCL 2 MG/2 ML SINGLE DOSE VIAL ONE (07:44)
[2024-11-25] MEDS ORDERED: ONDANSETRON 4 MG/2 ML VIAL ONE ×3 (07:48→13:28)
[2024-11-25] MEDS ORDERED: LIDOCAINE HCL/PF 2% SDV 5ML VIAL ONE (07:48)
[2024-11-25] MEDS ORDERED: ROCURONIUM BROMIDE 50 MG/5 ML SYRINGE ONE (07:48)
[2024-11-25] MEDS ORDERED: BUPIVACAINE HCL/PF 0.5% (5MG/ML) 10 ML VIAL ONE (07:52)
[2024-11-25] MEDS ORDERED: oxyCODONE HCL 5 MG TABLET PO PRN (07:54)
[2024-11-25] MEDS ORDERED: ACETAMINOPHEN INJECTION 100 ML ONE (07:58)
[2024-11-25] MEDS: ceFAZolin SODIUM 1 GM VIAL IVPB ONE (09:23)
[2024-11-25] MEDS: BUPIVACAINE HCL/PF 0.5% (5MG/ML) 10 ML VIAL IJ ONE (09:41)
[2024-11-25] MEDS ORDERED: ceFAZolin SODIUM 1 GM VIAL ONE ×2 (10:20→12:09)
[2024-11-25] MEDS ORDERED: DEXAMETHASONE SOD PHOSPHATE 4 MG/1 ML VIAL ONE (10:20)
[2024-11-25] MEDS ORDERED: DEXTROSE 50%-WATER 25 GM/50 ML DISP.SYRIN ONE (11:25)
[2024-11-25] MEDS ORDERED: ROCURONIUM BROMIDE 50 MG/5 ML VIAL ONE (11:25)
[2024-11-25] MEDS ORDERED: SUGAMMADEX SODIUM 200 MG/2 ML VIAL ONE (11:29)
[2024-11-25] MEDS: KETOROLAC TROMETHAMINE 15 MG/ML VIAL IM ONE (12:56)
[2024-11-25] MEDS: ONDANSETRON 4 MG/2 ML VIAL IVPUSH PRN ×2 (13:32→21:10)
[2024-11-25] MEDS ORDERED: IBUPROFEN 400 MG TABLET (FP) PO PRN (14:55)
[2024-11-25] MEDS: LACTATED RINGERS SOLUTION 1,000 ML IV SCH (15:37)
[2024-11-25] MEDS: IBUPROFEN 600 MG TABLET (FP) PO PRN (18:16)
[2024-11-25] MEDS: ACETAMINOPHEN 325 MG TABLET (FP) PO PRN (19:43)
[2024-11-26 01:11] VITALS: RESP 18
[2024-11-26 08:22] VITALS: TEMP 98.3
[2024-11-26 13:09] VITALS: BP 141/69; PULSE 68
== END 2024-11-26 12:25 | disposition home or self-care (01) ==
LOC: JASU-SURG 03:43 → JASUSAT 03:43 → J3W 16:24 → JASUSAT 11-26 12:25
PROVIDERS: ATTEND Obstetrics & Gynecology
PROC: 0UT2FZZ Resection of Bilateral Ovaries, Via Natural or Artificial Opening With Percutaneous Endoscopic Assistance (ICD-10-PCS; 2024-11-25)
PROC: 0UT9FZZ Resection of Uterus, Via Natural or Artificial Opening With Percutaneous Endoscopic Assistance (ICD-10-PCS; principal; 2024-11-25 09:00)
PROC: 0UT7FZZ Resection of Bilateral Fallopian Tubes, Via Natural or Artificial Opening With Percutaneous Endoscopic Assistance (ICD-10-PCS; 2024-11-25 09:00)
DX: N95.0 Postmenopausal bleeding (principal)
CPT/HCPCS: 86850; 86900; 86901; 88307-TC; 94760; J0131